=== PATIENT | male | born 1955 | race Caucasian/White ===

== ENCOUNTER 2021-04-01 17:21 | Emergency (ER) | payer MEDICARE ==
[2021-04-01 18:09] VITALS: BP 223/94; PULSE 79; RESP 18; TEMP 98
[2021-04-01] MEDS ORDERED: LIDOCAINE 1% INJ 10MG/ML (20 ML MDV) SQ ONE (19:14)
[2021-04-01] MEDS ORDERED: DIPH,PERTUS(ACELL)TETVAC-LF 0.5 ML VIAL IM ONE (19:41)
--- NOTE | 2021-04-01 19:44 | ED ---
Wound/Laceration HPI - General Chief Complaint: Wound/Laceration Stated Complaint: Finger Laceration Time Seen by Provider: 04/01/21 18:38 Source: patient, RN notes reviewed Mode of arrival: ambulatory Limitations: no limitations - History of Present Illness Initial Comments: 65-year-old male present emergency Department chief complaint of laceration to his right third and fourth. Patient states he was tossing logs and landed on his finger. Patient is unsure when his last tetanus was. Patient has normal drug ALLERGIES no other complaints for range of motion. - Related Data Home Medications Medication Instructions Recorded Confirmed Acetaminophen Tab [Tylenol] 650 mg PO BID PRN 01/28/15 07/31/15 Atorvastatin [Lipitor] 10 mg PO DAILY 02/15/15 07/31/15 Losartan [Cozaar] 25 mg PO QAM 02/15/15 07/31/15 Aspirin [Adult Low Dose Aspirin EC] 81 mg PO DAILY 07/31/15 07/31/15 INSULIN LISPRO (humaLOG) [humaLOG] 0 units SQ TID-W/MEALS 07/31/15 07/31/15 Previous Rx's Medication Instructions Recorded Insulin Glargine [Lantus Vial] 20 unit SQ HS #1 vial 02/01/15 Allergies Allergy/AdvReac Type Severity Reaction Status Date / Time No Known Allergies Allergy Verified 04/01/21 18:10 Review of Systems ROS Statement: Those systems with pertinent positive or pertinent negative responses have been documented in the HPI. ROS Other: All systems not noted in ROS Statement are negative. Past Medical History Past Medical History: Diabetes Mellitus, Hyperlipidemia, Hypertension Additional Past Medical History / Comment(s): POOR CIRCULATION RT LEG. RT ANKLE WOUND History of Any Multi-Drug Resistant Organisms: None Reported Past Surgical History: Adenoidectomy, Orthopedic Surgery, Tonsillectomy Additional Past Surgical History / Comment(s): RECENT WOUND CENTER FOR RT ANKLE WOUND, NOW DISCHARGED, GANGLION CYST REMOVED LT WRIST, MASS REMOVED FROM RT INNER THIGH/GROIN. IVAN CATARACT LENS IMPLANTS. Past Anesthesia/Blood Transfusion Reactions: No Reported Reaction Past Psychological History: No Psychological Hx Reported Smoking Status: Never smoker Past Alcohol Use History: Occasional Past Drug Use History: None Reported - Past Family History Mother Family Medical History: Renal Disease Father Family Medical History: Diabetes Mellitus Additional Family Medical History / Comment(s): AGE 66 General Exam Limitations: no limitations General appearance: alert, in no apparent distress Head exam: Present: atraumatic, normocephalic, normal inspection Eye exam: Present: normal appearance, PERRL, EOMI. Absent: scleral icterus, conjunctival injection, periorbital swelling ENT exam: Present: normal exam, normal oropharynx, mucous membranes moist Respiratory exam: Present: normal lung sounds bilaterally. Absent: respiratory distress, wheezes, rales, rhonchi, stridor Cardiovascular Exam: Present: regular rate, normal rhythm, normal heart sounds. Absent: systolic murmur, diastolic murmur, rubs, gallop, clicks Extremities exam: Present: other (Right hand third digit there is a3 cm laceration along with the fourth digit 1 cm) Course Vital Signs 04/01/21 18:05 Temperature 98.0 F Pulse Rate 79 Respiratory 18 Rate Blood Pressure 223/94 O2 Sat by Pulse 97 Oximetry Procedures - Laceration Laceration #1 Consent Obtained: verbal consent Indication: laceration Site: hand (3rd) Size (cm): 3 Description: irregular Depth: simple, single layer Anesthetic Used: lidocaine 1%, without epi Anesthesia Technique: nerve block Amount (mls): 8 Pre-repair: wound explored, irrigated extensively, deep structures intact Type of Sutures: nylon Size of Sutures: 4-0 Number of Sutures: 6 Technique: simple, interrupted Patient Tolerated Procedure: well, no complications Laceration #2 Consent Obtained: verbal consent Indication: laceration Site: hand (4th) Size (cm): 1 Description: linear Anesthetic Used: lidocaine 1%, without epi Anesthesia Technique: local infiltration Amount (mls): 2 Pre-repair: wound explored, irrigated extensively, deep structures intact Type of Sutures: nylon Size of Sutures: 4-0 Number of Sutures: 1 Patient Tolerated Procedure: well, no complications Medical Decision Making - Medical Decision Making X-ray does not show no acute fracture. Patient has a laceration repaired patient will be discharged in stable condition. Disposition Clinical Impression: Finger laceration Disposition: HOME SELF-CARE Condition: Stable Instructions (If sedation given, give patient instructions): Laceration (ED), Care For Your Stitches (ED) Additional Instructions: Sutures removed in 10 days.Please return to the Emergency Department if symptoms worsen or any other concerns. Is patient prescribed a controlled substance at d/c from ED?: No Referrals: Gonzalez Whitehead DO [Primary Care Provider] - 1-2 days Time of Disposition: 19:44
--- NOTE | 2021-04-01 19:50 | XR ---
RESULT: HISTORY: laceration TECHNIQUE: 3 views of the right fingers were obtained. COMPARISON: None. FINDINGS: There is no acute displaced fracture or dislocation. The visualized joint spaces are preserved. No ra diopaque foreign body. IMPRESSION: No displaced fracture or radiopaque foreign body.
== END 2021-04-01 20:03 | disposition home or self-care (01) ==
LOC: EC 17:21
DX: S61.212A Laceration without foreign body of right middle finger without damage to nail, initial encounter (principal); S61.214A Laceration without foreign body of right ring finger without damage to nail, initial encounter; W22.8XXA Striking against or struck by other objects, initial encounter; E11.9 Type 2 diabetes mellitus without complications; I10 Essential (primary) hypertension; E78.5 Hyperlipidemia, unspecified; Z79.4 Long term (current) use of insulin; Z79.899 Other long term (current) drug therapy; Z83.3 Family history of diabetes mellitus
CPT/HCPCS: 90471; 99283; 73140; 90715; 12002; J2001

== ENCOUNTER 2023-02-25 12:06 | Inpatient (IN) | payer MEDICARE ==
--- NOTE | 2023-02-25 13:00 | ED ---
Skin/Abscess/FB HPI - General Source: patient, RN notes reviewed Mode of arrival: ambulatory Limitations: no limitations <Gonzalez Hendrix - Last Filed: 02/25/23 12:59> - History of Present Illness MD complaint: abscess/boil, other (Diabetic foot ulcer) -: days(s) Location: R foot Severity: moderate Severity scale (1-10): 4 Consistency: constant Improves with: none Worsens with: none Context: none Associated symptoms: denies other symptoms Treatments Prior to Arrival: none <Jose Newby - Last Filed: 02/28/23 18:14> - General Chief complaint: Skin/Abscess/Foreign Body Stated complaint: rt leg wound Time Seen by Provider: 02/25/23 12:59 - History of Present Illness Initial comments: 67-year-old male presents emergency Department chief complaint of wound to his right foot. He states that his been dealing for last 1 month. Patient states she's been trying to other himself states is getting worse. Patient states is painful there is noted to the area. he has known diabetic on insulin. (Gonzalez Hendrix) This is a 67-year-old male the ER today. Patient Dese for evaluation of significant infection) infection with malodorous discharge. Fever. Patient does not feel well and is having this pain in the right foot ankle and leg. Patient states he has having increasing smell and feeling weak (Jose Newby) - Related Data Home Medications Medication Instructions Recorded Confirmed Atorvastatin [Lipitor] 20 mg PO HS 02/25/23 02/25/23 Escitalopram [Lexapro] 20 mg PO DAILY 02/25/23 02/25/23 Insulin NPH Hum/Reg Insulin Hm 40 units SQ BID 02/25/23 02/25/23 [Novolin 70-30 Flexpen] Lisinopril-Hctz 20-25 mg 1 tab PO DAILY 02/25/23 02/25/23 [Zestoretic 20-25] amLODIPine [Norvasc] 5 mg PO DAILY 02/25/23 02/25/23 metFORMIN HCL 500 mg PO BID 02/25/23 02/25/23 traZODone HCL [Desyrel] 50 - 100 mg PO HS 02/25/23 02/25/23 Allergies Allergy/AdvReac Type Severity Reaction Status Date / Time No Known Allergies Allergy Verified 02/25/23 17:47 Review of Systems ROS Other: All systems not noted in ROS Statement are negative. <RachidGonzalez swanson - Last Filed: 02/25/23 12:59> ROS Other: All systems not noted in ROS Statement are negative. <Jose Newby Manuel - Last Filed: 02/28/23 18:14> ROS Statement: Those systems with pertinent positive or pertinent negative responses have been documented in the HPI. Past Medical History Past Medical History: Diabetes Mellitus, Hyperlipidemia, Hypertension Additional Past Medical History / Comment(s): POOR CIRCULATION RT LEG. RT ANKLE WOUND History of Any Multi-Drug Resistant Organisms: None Reported Past Surgical History: Adenoidectomy, Orthopedic Surgery, Tonsillectomy Additional Past Surgical History / Comment(s): RECENT WOUND CENTER FOR RT ANKLE WOUND, NOW DISCHARGED, GANGLION CYST REMOVED LT WRIST, MASS REMOVED FROM RT INNER THIGH/GROIN. IVAN CATARACT LENS IMPLANTS. Past Anesthesia/Blood Transfusion Reactions: No Reported Reaction Past Psychological History: No Psychological Hx Reported Smoking Status: Never smoker Past Alcohol Use History: Occasional Past Drug Use History: None Reported - Past Family History Mother Family Medical History: Renal Disease Father Family Medical History: Diabetes Mellitus Additional Family Medical History / Comment(s): AGE 66 <RumaGonzalez - Last Filed: 02/25/23 12:59> General Exam Limitations: no limitations <RachidGonzalez swanson - Last Filed: 02/25/23 12:59> General appearance: alert, in no apparent distress Head exam: Present: atraumatic, normocephalic, normal inspection Eye exam: Present: normal appearance, PERRL, EOMI. Absent: scleral icterus, conjunctival injection, periorbital swelling ENT exam: Present: normal exam, mucous membranes moist Neck exam: Present: normal inspection. Absent: tenderness, meningismus, lymphadenopathy Respiratory exam: Present: normal lung sounds bilaterally. Absent: respiratory distress, wheezes, rales, rhonchi, stridor Cardiovascular Exam: Present: regular rate, normal rhythm, normal heart sounds. Absent: systolic murmur, diastolic murmur, rubs, gallop, clicks GI/Abdominal exam: Present: soft, normal bowel sounds. Absent: distended, tenderness, guarding, rebound, rigid Extremities exam: Present: normal inspection, full ROM, normal capillary refill, other (Significant swelling right lower extremity with drainage, foot great toe fifth toe as well as heel ulcers, malodorous). Absent: tenderness, pedal edema, joint swelling, calf tenderness Back exam: Present: normal inspection Neurological exam: Present: alert, oriented X3, CN II-XII intact Psychiatric exam: Present: normal affect, normal mood Skin exam: Present: warm, dry, intact, normal color. Absent: rash <Jose Newby - Last Filed: 02/28/23 18:14> - General Exam Comments Initial Comments: Visual Physical Exam Vital signs reviewed General: Well-appearing, nontoxic, no acute distress. Head: Normocephalic, atraumatic Eyes: PERRLA, EOMI ENT: Airway patent Chest: Nonlabored breathing Skin: No visual rash, normal skin tone Neuro: Alert and oriented 3 Musculoskeletal: No gross abnormalities (Gonzalez Hendrix) Patient does have multiple nonhealing ulcers right lower extremity significant ulcer to right heel as well as right foot pad of his great toe, greater digit (Jose Newby) Course <Jose Newby - Last Filed: 02/28/23 18:14> Vital Signs 02/25/23 02/25/23 02/25/23 12:24 16:48 18:00 Temperature 99.9 F H Pulse Rate 91 99 87 Respiratory 20 18 18 Rate Blood Pressure 182/83 175/80 162/72 O2 Sat by Pulse 98 99 100 Oximetry 02/25/23 02/25/23 18:53 21:00 Temperature 99.4 F 98.2 F Pulse Rate 71 Respiratory 18 Rate Blood Pressure 131/84 O2 Sat by Pulse 94 L Oximetry - Reevaluation(s) Reevaluation #1: 02/25/23 17:42 Medical records reviewed (Jose Newby) Reevaluation #2: 02/25/23 17:42 Patient symptoms are improved (Jose Newby) Reevaluation #3: 02/25/23 17:42 Patient informed results questions answered (Jose Newby) Reevaluation #4: 02/25/23 17:42 Was pt. sent in by a medical professional or institution (, PA, MARKETING PROJECT MANAGER, urgent care, hospital, or usp...) When possible be specific @ -no Did you speak to anyone other than the patient for history (EMS, parent, family, police, friend...)? What history was obtained from this source @ -no Did you review nursing and triage notes (agree or disagree)? Why? @ -agree Are old charts reviewed (outside hosp., previous admission, EMS record, old EKG, old radiological studies, urgent care reports/EKG's, usp records)? Report findings @ -yes Differential Diagnosis (chest pain, altered mental status, abdominal pain women, abdominal pain men, vaginal bleeding, weakness, fever, dyspnea, syncope, headache, dizziness, GI bleed, back pain, seizure, CVA, palpatations, mental health, musculoskeletal)? @ -prior EKG interpreted by me (3pts min.). @ -no X-rays interpreted by me (1pt min.). @ -yes CT interpreted by me (1pt min.). @ -no U/S interpreted by me (1pt. min.). @ -no What testing was considered but not performed or refused? (CT, X-rays, U/S, labs)? Why? @ -none What meds were considered but not given or refused? Why? @ -none Did you discuss the management of the patient with other professionals (professionals i.e. , PA, MARKETING PROJECT MANAGER, lab, RT, psych nurse, social director, post anesthesia nurse, teacher, president and chief executive officer, case specialist)? Give summary @ -no Was smoking cessation discussed for >3mins.? @ -no Was critical care preformed (if so, how long)? @ -no Were there social determinants of health that impacted care today? How? (Homelessness, low income, unemployed, alcoholism, drug addiction, transportation, low edu. Level, literacy, decrease access to med. care, long-term, rehab)? @ -none Was there de-escalation of care discussed even if they declined (Discuss DNR or withdrawal of care, Hospice)? DNR status @ -no What co-morbidities impacted this encounter? (DM, HTN, Smoking, COPD, CAD, Cancer, CVA, ARF, Chemo, Hep., AIDS, mental health diagnosis, sleep apnea, morbid obesity)? @ -none Was patient admitted / discharged? Hospital course, mention meds given and route, prescriptions, significant lab abnormalities, going to OR and other pertinent info. @ - 67 male with underlying diabetes significant coming in for evaluation of lower extremity wounds, unhealing ulcer right lower extremity right heel right foot. Patient will be admitted for IV antibiotics rule out osteomyelitis and supportive care Admitted Undiagnosed new problem with uncertain prognosis? @ -no Drug Therapy requiring intensive monitoring for toxicity (Heparin, Nitro, Insulin, Cardizem)? @ -no Were any procedures done? @ -no Diagnosis/symptom? @ -Diabetic ulcers, cellulitis Acute, or Chronic, or Acute on Chronic? @ -Acute Uncomplicated (without systemic symptoms) or Complicated (systemic symptoms)? @ -Complicated Side effects of treatment? @ -no Exacerbation, Progression, or Severe Exacerbation? @ -exacerbation Poses a threat to life or bodily function? How? (Chest pain, [place], [place], pneumonia, PE, COPD, DKA, ARF, appy, cholecystitis, CVA, Diverticulitis, Homicidal, Suicidal, threat to staff... and all critical care pts) @ -yes threat to limb was sepsis, osteoarthritis (Jose Newby) - Consultations Consultation #1: Spoke with sound who agrees to admit this patient (Jose Newby) Medical Decision Making <Gonzalez Hendrix - Last Filed: 02/25/23 12:59> - Lab Data Result diagrams: 02/28/23 06:33 02/28/23 06:33 - Radiology Data Radiology results: report reviewed (X-ray foot is negative for air, negative for acute disease), image reviewed <Jose Newby - Last Filed: 02/28/23 18:14> - Medical Decision Making I performed a quick note portion of this chart signed Gonzalez Hendrix PA-C (Gonzalez Hendrix) 67 male with underlying diabetes significant coming in for evaluation of lower extremity wounds, unhealing ulcer right lower extremity right heel right foot. Patient will be admitted for IV antibiotics rule out osteomyelitis and supportive care (Jose Newby) - Lab Data Lab Results 02/25/23 02/25/23 02/25/23 Range/Units 13:57 13:57 13:57 WBC 16.5 H (3.8-10.6) k/uL RBC 4.25 L (4.30-5.90) m/uL Hgb 13.0 (13.0-17.5) gm/dL Hct 38.9 L (39.0-53.0) % MCV 91.5 (80.0-100.0) fL MCH 30.6 (25.0-35.0) pg MCHC 33.5 (31.0-37.0) g/dL RDW 14.1 (11.5-15.5) % Plt Count 158 (150-450) k/uL MPV 9.6 Neutrophils % 82 % Lymphocytes % 8 % Monocytes % 8 % Eosinophils % 0 % Basophils % 0 % Neutrophils # 13.5 H (1.3-7.7) k/uL Lymphocytes # 1.3 (1.0-4.8) k/uL Monocytes # 1.4 H (0-1.0) k/uL Eosinophils # 0.1 (0-0.7) k/uL Basophils # 0.0 (0-0.2) k/uL Sodium 132 L (137-145) mmol/L Potassium 4.1 (3.5-5.1) mmol/L Chloride 96 L (98-107) mmol/L Carbon Dioxide 26 (22-30) mmol/L Anion Gap 10 mmol/L BUN 17 (9-20) mg/dL Creatinine 0.92 (0.66-1.25) mg/dL Est GFR (CKD-EPI)AfAm >90 (>60 ml/min/1.73 sqM) Est GFR (CKD-EPI)NonAf 87 (>60 ml/min/1.73 sqM) Glucose 242 H (74-99) mg/dL Plasma Lactic Acid Francisco 1.5 (0.7-2.0) mmol/L Calcium 8.6 (8.4-10.2) mg/dL Total Bilirubin 0.5 (0.2-1.3) mg/dL AST 51 (17-59) U/L ALT 31 (4-49) U/L Alkaline Phosphatase 108 (38-126) U/L C-Reactive Protein 21.8 H (<1.0) mg/dL Total Protein 7.3 (6.3-8.2) g/dL Albumin 3.4 L (3.5-5.0) g/dL Disposition <Gonzalez Hendrix - Last Filed: 02/25/23 12:59> Is patient prescribed a controlled substance at d/c from ED?: No Time of Disposition: 17:40 <Jose Newby - Last Filed: 02/28/23 18:14> Clinical Impression: Infected wound, Diabetic ulcer of lower extremity, Right foot ulcer, Fever Narrative: r/o Osteomyelitis (Jose Newby) Disposition: ADMITTED IP TO THIS HOSP Condition: Fair
--- NOTE | 2023-02-25 13:05 | XR ---
EXAMINATION TYPE: XR foot complete RT DATE OF EXAM: 02/25/2023 1:00 PM INDICATION: Patient age:Male; 67 years old; Reason for study: wound pain; PHH. COMPARISON: None TECHNIQUE: The right foot was examined in the AP, oblique, and lateral projections. FINDINGS: Mild multifocal degeneration changes with osteophyte formation and joint space narrowing worse at the first digit interphalangeal joint. No evidence of any acute osseous pathology. There are soft tissue s when throughout the foot. Joints are preserved. Calcaneal plantar spurring is present. Calcaneal Ac hilles enthesophyte formation. Skin calcifications noted and the distal leg. No osseous erosion visua lized. IMPRESSION: * No evidence of acute fracture. * Mild soft tissue swelling throughout the foot. No evidence for osseous erosion. * Mild multilevel disc degeneration changes.
[2023-02-25 14:12] LABS: Basophils % (A) 0 %; Eosinophils # (A) 0.1 k/uL (0-0.7); Eosinophils % (A) 0 %; HCT 38.9 % (39.0-53.0); Lymphocytes # (A) 1.3 k/uL (1.0-4.8); Lymphocytes % (A) 8 %; MCH 30.6 pg (25.0-35.0); MCHC 33.5 g/dL (31.0-37.0); MCV 91.5 fL (80.0-100.0); Mean Platelet Volume 9.6; Monocytes # (A) 1.4 k/uL (0-1.0); Monocytes % (A) 8 %; Neutrophils # (A) 13.5 k/uL (1.3-7.7); Neutrophils % (A) 82 %; Platelet Count 158 k/uL (150-450); RBC 4.25 m/uL (4.30-5.90); RDW 14.1 % (11.5-15.5); WBC 16.5 k/uL (3.8-10.6)
[2023-02-25 14:34] LABS: ALT 31 U/L (4-49); AST 51 U/L (17-59); African American GFR (CKD) >90 (>60 ml/min/1.73 sqM); Albumin 3.4 g/dL (3.5-5.0); Alkaline Phosphatase 108 U/L (38-126); Anion Gap 10 mmol/L; Blood Urea Nitrogen 17 mg/dL (9-20); Calcium 8.6 mg/dL (8.4-10.2); Carbon Dioxide 26 mmol/L (22-30); Chloride 96 mmol/L (98-107); Glucose 242 mg/dL (74-99); Non-African American GFR(CKD) 87 (>60 ml/min/1.73 sqM); Potassium 4.1 mmol/L (3.5-5.1); Sodium 132 mmol/L (137-145); Total Bilirubin 0.5 mg/dL (0.2-1.3); Total Protein 7.3 g/dL (6.3-8.2)
[2023-02-25 14:46] LABS: C Reactive Protein 21.8 mg/dL (<1.0)
[2023-02-25] MEDS ORDERED: SODIUM CHLORIDE 0.9% 500 ML 500 ML IV ONE (17:14)
[2023-02-25] MEDS ORDERED: VANCOMYCIN IV PER PHARMACY 1 EACH MISC MISCELLANE PRN (17:14)
[2023-02-25] MEDS ORDERED: ACETAMINOPHEN TAB 500 MG TAB PO STA (17:17)
[2023-02-25] MEDS ORDERED: IBUPROFEN 800 MG TAB PO STA (17:17)
[2023-02-25] MEDS ORDERED: ONDANSETRON 4 MG/2 ML VIAL IVP PRN (17:37)
[2023-02-25] MEDS ORDERED: NALOXONE 0.4 MG/ML 1 ML VIAL IV PRN (17:37)
[2023-02-25] MEDS ORDERED: MORPHINE SULFATE 4 MG/ML SYRINGE IV PRN (17:37)
[2023-02-25] MEDS: SODIUM CHLORIDE 0.9% 1,000 ML IV SCH ×2 (17:49→23:47)
[2023-02-25] MEDS ORDERED: VANCOMYCIN 2,500 MG in SODIUM CHLORIDE 0.9% 500 ML 500 ML IVPB ONE (18:00)
--- NOTE | 2023-02-25 20:16 | US ---
EXAMINATION TYPE: US venous doppler duplex LE RT DATE OF EXAM: 02/25/2023 7:47 PM COMPARISON: NONE CLINICAL INDICATION: Male, 67 years old with history of roberto; Right calf swelling and redness. Diabet ic with wounds SIDE PERFORMED: Right TECHNIQUE: The lower extremity deep venous system is examined utilizing real time linear array sonog liam with graded compression, doppler sonography and color-flow sonography. VESSELS IMAGED: Common Femoral Vein Deep Femoral Vein Greater Saphenous Vein * Femoral Vein Popliteal Vein Small Saphenous Vein * Proximal Calf Veins (* superficial vessels) Right Leg: Negative for DVT. Multiple large lymph nodes visualized in groin and one in the knee IMPRESSION: Grayscale, color doppler, spectral doppler imaging performed of the deep veins of the lo wer extremities. There is normal flow, compressibility, vascular waveforms. Multiple enlarged lymph nodes right groin.
--- NOTE | 2023-02-25 21:20 | P.HPIM ---
History of Present Illness H&P Date: 02/25/23 The patient is a 67-year-old male with a PMH of insulin-dependent diabetes mellitus completed by peripheral neuropathy with history of right lower extremity osteomyelitis, hypertension, and hyperlipidemia who presents to the emergency room with complaints of right lower extremity ulcers, fever, and fatigue. The patient reports that over the past 2 months, he has been noticed the worsening right heel ulcer. He has been trying to take care of it at home with dressings without significant improvement. Since Wednesday, the patient has been developing gradually worsening diaphoresis with fever with temperature 102.6F measured at home earlier today as well as fatigue and lightheadedness. Reports diffuse right foot pain rated at a 5 out of 10. Denies chest pain or shortness of breath. Denies headaches, abdominal pain, nausea, vomiting. Right foot x-ray in the emergency room showed mild soft tissue swelling throughout the foot without osseous abnormalities. Venous Doppler of right lower extremity was negative for DVT with multiple large lymph nodes visualized in the groin and one in the knee. Laboratory evaluation was remarkable for leukocytosis of 16.5 with sodium 132 chloride 96, lactic acid 1.5, and glucose 242. Of note, the patient previously had an episode of osteomyelitis in 2014 of right ankle requiring prolonged course of antibiotics with subsequent resolution. ED documentation reviewed and case discussed with ED provider. Review of systems: Pertinent positives and negatives as discussed in HPI, a complete review of systems was performed and all other systems are negative. Physical examination: Vital signs reviewed General: non toxic, no distress, appears at stated age, obese Derm: R foot multiple ulcers including plantar surface first metatarsal 4-5 cm non-stageble, lateral aspect of ankle 2 cm purulent base ulcer, 2 large starge 3 somewhat purulent and erythematous ulcers on medial aspect of leg Eyes: EOMI, no lid lag, anicteric sclera, pupils equal round reactive to light ENT: Nose and ears atraumatic Neck: No cervical lymphadenopathy, trachea midline, supple Mouth: no lip lesion, mucus membranes moist Cardiovascular: S1S2 reg, no murmur, positive dorsalis pedis pulse bilateral, no edema Lungs: CTA bilateral, no rhonchi, no rales, no accessory muscle use Abdominal: soft, nontender to palpation, no guarding Ext: muscle strength 5 out of 5 in all 4 extremities grossly, no gross muscle atrophy, no contractures, chronic venous stasis changes ivan LEs with R>L noted with RLE erythematous Neuro: CN II-XI grossly intact, no gross focal neuro deficits Psych: Alert, oriented, appropriate affect Assessment: # Right lower extremity multiple diabetic ulcers with cellulitis, rule out osteomyelitis # Hyponatremia # Chronic conditions: Type II DM, hypertension, hyperlipidemia Imaging: Right foot x-ray in the emergency room showed mild soft tissue swelling throughout the foot without osseous abnormalities. Venous Doppler of right lower extremity was negative for DVT with multiple large lymph nodes visualized in the groin and one in the knee. Data Review: Laboratory evaluation was remarkable for leukocytosis of 16.5 with sodium 132 chloride 96, lactic acid 1.5, and glucose 242. Plan: Continue with broad-spectrum antibiotic coverage with ceftriaxone and vancomycin IV Obtain right foot MRI to rule out osteomyelitis Infectious disease consult Pain control with morphine 4 mg IVP q4h prn Continue with IV fluids with normal saline 130 mLs per hour Continue with the following home medications: -Trazodone 50 mg by mouth daily at bedtime -Lexapro 20 mg by mouth daily -Lipitor 20 mg by mouth daily at bedtime -Hold the patient's antihypertensives at this time The patient takes Novolin 70/30 40 units twice a day at home Start patient on Levemir 30 units daily at bedtime with sliding scale for now DVT prophylaxis: Lovenox The patient is admitted with an anticipated greater than 2 midnight stay for evaluation of RLE cellulitis CODE STATUS: Full Code Discussed with: Patient Anticipated discharge place: Home Past Medical History Past Medical History: Diabetes Mellitus, Hyperlipidemia, Hypertension Additional Past Medical History / Comment(s): POOR CIRCULATION RT LEG. RT ANKLE WOUND History of Any Multi-Drug Resistant Organisms: None Reported Past Surgical History: Adenoidectomy, Orthopedic Surgery, Tonsillectomy Additional Past Surgical History / Comment(s): RECENT WOUND CENTER FOR RT ANKLE WOUND, NOW DISCHARGED, GANGLION CYST REMOVED LT WRIST, MASS REMOVED FROM RT INNER THIGH/GROIN. IVAN CATARACT LENS IMPLANTS. Past Anesthesia/Blood Transfusion Reactions: No Reported Reaction Past Psychological History: No Psychological Hx Reported Smoking Status: Never smoker Past Alcohol Use History: Occasional Past Drug Use History: None Reported - Past Family History Mother Family Medical History: Renal Disease Father Family Medical History: Diabetes Mellitus Additional Family Medical History / Comment(s): AGE 66 Medications and Allergies Home Medications Medication Instructions Recorded Confirmed Type Atorvastatin [Lipitor] 20 mg PO HS 02/25/23 02/25/23 History Escitalopram [Lexapro] 20 mg PO DAILY 02/25/23 02/25/23 History Insulin NPH Hum/Reg Insulin Hm 40 units SQ BID 02/25/23 02/25/23 History [Novolin 70-30 Flexpen] Lisinopril-Hctz 20-25 mg 1 tab PO DAILY 02/25/23 02/25/23 History [Zestoretic 20-25] amLODIPine [Norvasc] 5 mg PO DAILY 02/25/23 02/25/23 History metFORMIN HCL 500 mg PO BID 02/25/23 02/25/23 History traZODone HCL [Desyrel] 50 - 100 mg PO HS 02/25/23 02/25/23 History Allergies Allergy/AdvReac Type Severity Reaction Status Date / Time No Known Allergies Allergy Verified 02/25/23 17:47 Physical Exam Vitals: Vital Signs Temp Pulse Resp BP Pulse Ox 02/25/23 18:53 99.4 F 02/25/23 18:00 87 18 162/72 100 02/25/23 16:48 99 18 175/80 99 02/25/23 12:24 99.9 F H 91 20 182/83 98 Intake and Output 02/25/23 02/25/23 02/25/23 06:59 14:59 22:59 Other: Weight 131.088 kg Results CBC & Chem 7: 02/25/23 13:57 02/25/23 13:57 Labs: Abnormal Lab Results - Last 24 Hours (Table) 02/25/23 02/25/23 Range/Units 13:57 13:57 WBC 16.5 H (3.8-10.6) k/uL RBC 4.25 L (4.30-5.90) m/uL Hct 38.9 L (39.0-53.0) % Neutrophils # 13.5 H (1.3-7.7) k/uL Monocytes # 1.4 H (0-1.0) k/uL Sodium 132 L (137-145) mmol/L Chloride 96 L (98-107) mmol/L Glucose 242 H (74-99) mg/dL C-Reactive Protein 21.8 H (<1.0) mg/dL Albumin 3.4 L (3.5-5.0) g/dL
[2023-02-25 21:42] LABS: Glucose,Whole Blood 142 mg/dL (70-110)
[2023-02-25] MEDS: INSULIN DETEMIR (LEVEMIR) 100 UNIT/ML SYR SQ SCH (22:28)
[2023-02-25] MEDS: traZODone HCL 50 MG TAB PO SCH (22:28)
[2023-02-26] MEDS ORDERED: VANCOMYCIN 2,250 MG in SODIUM CHLORIDE 0.9% 500 ML 500 ML IVPB SCH (06:00)
[2023-02-26] MEDS: INSULIN ASPART (NovoLOG) 100 UNIT/ML VIAL SQ SCH ×4 (06:07→21:09)
[2023-02-26 06:08] LABS: Glucose,Whole Blood 102 mg/dL (70-110)
[2023-02-26 07:48] LABS: ALT 27 U/L (4-49); AST 33 U/L (17-59); African American GFR (CKD) 61 (>60 ml/min/1.73 sqM); Albumin 2.7 g/dL (3.5-5.0); Albumin/Globulin Ratio 0.8; Alkaline Phosphatase 83 U/L (38-126); Anion Gap 5 mmol/L; Blood Urea Nitrogen 22 mg/dL (9-20); Calcium 8.2 mg/dL (8.4-10.2); Carbon Dioxide 30 mmol/L (22-30); Chloride 102 mmol/L (98-107); Globulin 3.2 g/dL; Glucose 102 mg/dL (74-99); Non-African American GFR(CKD) 53 (>60 ml/min/1.73 sqM); Potassium 4.7 mmol/L (3.5-5.1); Sodium 137 mmol/L (137-145); Total Bilirubin 0.6 mg/dL (0.2-1.3); Total Protein 5.9 g/dL (6.3-8.2)
[2023-02-26] MEDS: ENOXAPARIN 40 MG/0.4 ML SYRINGE SQ SCH (08:02)
[2023-02-26] MEDS: ESCITALOPRAM 20 MG TAB PO SCH (08:02)
[2023-02-26] MEDS: SODIUM CHLORIDE 0.9% 1,000 ML IV SCH ×3 (08:09→23:31)
[2023-02-26 11:05] LABS: HCT 37.5 % (39.6-50.0); HGB 11.6 d/dL (13.0-17.0); MCHC 30.9 d/dL (32.0-37.0); MCV 93.8 FL (80.0-97.0); Mean Platelet Volume 12.5 FL (9.5-12.2); NRBC Per 100 WBC 0 X 10*3/uL (0.00-0.01); Platelet Count 151 X 10*3/uL (140-440); RDW 14.6 % (11.5-14.5); WBC 17.36 X 10*3/uL (4.50-10.00)
[2023-02-26 11:17] LABS: Glucose,Whole Blood 178 mg/dL (70-110)
[2023-02-26 11:28] LABS: Phosphorus 4.8 mg/dL (2.5-4.5)
[2023-02-26] MEDS: AMPICILLIN-SULBACTAM 3 GM in SODIUM CHLORIDE 0.9% 100 ML IVPB SCH ×3 (13:30→23:31)
[2023-02-26] MEDS: ACETAMINOPHEN TAB 325 MG TAB PO PRN ×2 (13:30→20:00)
[2023-02-26 14:08] LABS: Basophils % (A) 0.3 %; Eosinophils % (A) 0.7 %; Lymphocytes % (A) 8.7 %; Neutrophils % (A) 78.7 %
[2023-02-26 16:24] LABS: Glucose,Whole Blood 180 mg/dL (70-110)
--- NOTE | 2023-02-26 17:00 | P.PN ---
Subjective Progress Note Date: 02/26/23 The patient is a 67-year-old male with a PMH of insulin-dependent diabetes mellitus completed by peripheral neuropathy with history of right lower extremity osteomyelitis, hypertension, and hyperlipidemia who presents to the emergency room with complaints of right lower extremity ulcers, fever, and fatigue. Right foot x-ray in the emergency room showed mild soft tissue swelling throughout the foot without osseous abnormalities. Venous Doppler of right lower extremity was negative for DVT with multiple large lymph nodes visualized in the groin and one in the knee. Right foot x-ray in the emergency room showed mild soft tissue swelling throughout the foot without osseous abnormalities. Laboratory evaluation was remarkable for leukocytosis of 16.5 with sodium 132 chloride 96, lactic acid 1.5, and glucose 242. 02/26 Patient was seen and examined. No acute events overnight. Patient reports intermittent shaking and fevers which has improved since admission. Right foot pain well controlled. He has no other complaints. CBC shows WBC count of 17.36, hemoglobin 11.6. CMP shows BUN 22, creatinine 1.38, glucose 102, calcium 8.2, albumin 2.7. Phosphorus 4.8. General: non toxic, no distress, appears at stated age, obese Derm: R foot multiple ulcers including plantar surface first metatarsal 4-5 cm non-stageble, lateral aspect of ankle 2 cm purulent base ulcer, 2 large starge 3 somewhat purulent and erythematous ulcers on medial aspect of leg Eyes: EOMI, no lid lag, anicteric sclera ENT: Nose and ears atraumatic Neck: No cervical lymphadenopathy, trachea midline, supple Cardiovascular: S1S2 reg, no murmur, positive dorsalis pedis pulse bilateral, no edema Lungs: CTA bilateral, no rhonchi, no rales, no accessory muscle use Ext: muscle strength 5 out of 5 in all 4 extremities grossly, no gross muscle atrophy, no contractures, chronic venous stasis changes toni LEs with R>L noted with RLE erythematous Neuro: no gross focal neuro deficits Psych: Alert, oriented, appropriate affect Assessment: # Right lower extremity multiple diabetic ulcers with cellulitis, rule out osteomyelitis # Sepsis likely related to above # Acute kidney injury # Chronic conditions: Type II DM, hypertension, hyperlipidemia Based on my assessment of this patient, this patient meets a high complexity lev el of care. Patient has an acute diagnosis of sepsis related to RLE cellulitis r/o OM that poses a threat to life or bodily function. # Right lower extremity multiple diabetic ulcers with cellulitis, rule out osteomyelitis: MRI foot pending. Tylenol PRN for fever. Continue Unasyn 3 g IV Q6H. Continue NS at 130 cc/hr. Telemetry monitoring. Blood culture pending. ID is consulted. # Sepsis likely related to above # Acute kidney injury: IV hydration as above. I have reviewed the following consultant education notes: I have reviewed the results of the following tests: CBC, CMP. I have ordered the following tests: CBC and BMP. I have discussed the care of this patient with the following independent vt storian: I have independently interpreted the following test below: I have discussed the management of this patient with the following physician: Objective - Vital Signs Vital signs: Vital Signs Temp 98.3 F 02/26/23 14:00 Pulse 68 02/26/23 14:00 Resp 17 02/26/23 14:00 BP 185/78 02/26/23 14:00 Pulse Ox 98 02/26/23 14:00 FiO2 Intake & Output 02/25/23 02/26/23 02/26/23 18:59 06:59 18:59 Weight 131.088 kg Other: Voiding Method Toilet # Voids 2 - Labs CBC & Chem 7: 02/26/23 07:02 02/26/23 07:02 Labs: Abnormal Lab Results - Last 24 Hours (Table) 02/25/23 02/26/23 02/26/23 Range/Units 21:40 07:02 07:02 WBC 17.36 H (4.50-10.00) X 10*3/uL RBC 4.00 L (4.40-5.60) X 10*6/uL Hgb 11.6 L (13.0-17.0) d/dL Hct 37.5 L (39.6-50.0) % MCHC 30.9 L (32.0-37.0) d/dL RDW 14.6 H (11.5-14.5) % MPV 12.5 H (9.5-12.2) FL BUN 22 H (9-20) mg/dL Creatinine 1.38 H (0.66-1.25) mg/dL Glucose 102 H (74-99) mg/dL POC Glucose (mg/dL) 142 H (70-110) mg/dL Calcium 8.2 L (8.4-10.2) mg/dL Phosphorus 4.8 H (2.5-4.5) mg/dL Total Protein 5.9 L (6.3-8.2) g/dL Albumin 2.7 L (3.5-5.0) g/dL 02/26/23 02/26/23 Range/Units 11:15 16:23 WBC (4.50-10.00) X 10*3/uL RBC (4.40-5.60) X 10*6/uL Hgb (13.0-17.0) d/dL Hct (39.6-50.0) % MCHC (32.0-37.0) d/dL RDW (11.5-14.5) % MPV (9.5-12.2) FL BUN (9-20) mg/dL Creatinine (0.66-1.25) mg/dL Glucose (74-99) mg/dL POC Glucose (mg/dL) 178 H 180 H (70-110) mg/dL Calcium (8.4-10.2) mg/dL Phosphorus (2.5-4.5) mg/dL Total Protein (6.3-8.2) g/dL Albumin (3.5-5.0) g/dL
[2023-02-26] MEDS: traZODone HCL 50 MG TAB PO SCH (20:00)
[2023-02-26] MEDS: ATORVASTATIN 20 MG TAB PO SCH (20:00)
[2023-02-26 21:05] LABS: Glucose,Whole Blood 156 mg/dL (70-110)
[2023-02-26] MEDS: INSULIN DETEMIR (LEVEMIR) 100 UNIT/ML SYR SQ SCH (21:12)
[2023-02-26] MEDS ORDERED: VANCOMYCIN 2,000 MG in SODIUM CHLORIDE 0.9% 500 ML 500 ML IVPB SCH (22:00)
--- NOTE | 2023-02-26 22:21 | P.CONS ---
History of Present Illness - Reason for Consult Consult date: 02/26/23 - History of Present Illness Patient is a 67-year-old male with a past medical history significant for insulin-dependent Beatties mellitus neuropathy hypertension hyperlipidemia presenting to the hospital with a right total lower extremity swelling redness along with fever and chills and fatigue patient's symptom has been going on for 3 to 4 days before presentation to hospital patient have a dry scaly skin and superficial ulceration to the right foot area patient do have underlying neuropathy denies significant pain however did have associated swelling or redness and no foul-smelling drainage with the symptoms the patient was evaluated on presentation to the hospital but did have a fever of 99.9 F patie nt was not tachycardic hypertensive or hypoxic did have what was 16.5 slightly up to 17,000 today BUN/creatinine is mildly elevated liver is abnormal CRP was elevated blood cultures obtained currently pending patient did have x-ray of the foot that was negative for any acute fracture mild soft tissue swelling throughout venous Doppler was negative for DVT multiple large lymph nodes visualized in the groin and one in the knee patient is currently being treated with the ceftriaxone and vancomycin infectious was consulted for further management of antibiotic therapy Past Medical History Past Medical History: Diabetes Mellitus, Hyperlipidemia, Hypertension Additional Past Medical History / Comment(s): POOR CIRCULATION RT LEG. RT ANKLE WOUND History of Any Multi-Drug Resistant Organisms: None Reported Past Surgical History: Adenoidectomy, Orthopedic Surgery, Tonsillectomy Additional Past Surgical History / Comment(s): RECENT WOUND CENTER FOR RT ANKLE WOUND, NOW DISCHARGED, GANGLION CYST REMOVED LT WRIST, MASS REMOVED FROM RT INNER THIGH/GROIN. IVAN CATARACT LENS IMPLANTS. Past Anesthesia/Blood Transfusion Reactions: No Reported Reaction Past Psychological History: No Psychological Hx Reported Smoking Status: Never smoker Past Alcohol Use History: Occasional Past Drug Use History: None Reported - Past Family History Mother Family Medical History: Renal Disease Father Family Medical History: Diabetes Mellitus Additional Family Medical History / Comment(s): AGE 66 Medications and Allergies Home Medications Medication Instructions Recorded Confirmed Type Atorvastatin [Lipitor] 20 mg PO HS 02/25/23 02/25/23 History Escitalopram [Lexapro] 20 mg PO DAILY 02/25/23 02/25/23 History Insulin NPH Hum/Reg Insulin Hm 40 units SQ BID 02/25/23 02/25/23 History [Novolin 70-30 Flexpen] Lisinopril-Hctz 20-25 mg 1 tab PO DAILY 02/25/23 02/25/23 History [Zestoretic 20-25] amLODIPine [Norvasc] 5 mg PO DAILY 02/25/23 02/25/23 History metFORMIN HCL 500 mg PO BID 02/25/23 02/25/23 History traZODone HCL [Desyrel] 50 - 100 mg PO HS 02/25/23 02/25/23 History Allergies Allergy/AdvReac Type Severity Reaction Status Date / Time No Known Allergies Allergy Verified 02/25/23 17:47 Physical Exam Vitals: Vital Signs Temp Pulse Pulse Resp BP BP Pulse Ox 02/26/23 10:03 16 02/26/23 07:11 98.2 F 62 16 110/65 97 02/26/23 00:45 97.6 F 61 19 118/75 95 02/25/23 21:29 98.1 F 64 19 107/64 97 02/25/23 21:00 98.2 F 71 18 131/84 94 L 02/25/23 18:53 99.4 F 02/25/23 18:00 87 18 162/72 100 02/25/23 16:48 99 18 175/80 99 Intake and Output 02/25/23 02/26/23 02/26/23 22:59 06:59 14:59 Other: Voiding Method Toilet # Voids 2 Weight 131.088 kg Results CBC & Chem 7: 02/26/23 07:02 02/26/23 07:02 Labs: Abnormal Lab Results - Last 24 Hours (Table) 02/25/23 02/25/23 02/25/23 Range/Units 13:57 13:57 21:40 WBC 16.5 H (3.8-10.6) k/uL RBC 4.25 L (4.30-5.90) m/uL Hgb (13.0-17.0) d/dL Hct 38.9 L (39.0-53.0) % MCHC (32.0-37.0) d/dL RDW (11.5-14.5) % MPV (9.5-12.2) FL Neutrophils # 13.5 H (1.3-7.7) k/uL Monocytes # 1.4 H (0-1.0) k/uL Sodium 132 L (137-145) mmol/L Chloride 96 L (98-107) mmol/L BUN (9-20) mg/dL Creatinine (0.66-1.25) mg/dL Glucose 242 H (74-99) mg/dL POC Glucose (mg/dL) 142 H (70-110) mg/dL Calcium (8.4-10.2) mg/dL Phosphorus (2.5-4.5) mg/dL C-Reactive Protein 21.8 H (<1.0) mg/dL Total Protein (6.3-8.2) g/dL Albumin 3.4 L (3.5-5.0) g/dL 02/26/23 02/26/23 02/26/23 Range/Units 07:02 07:02 11:15 WBC 17.36 H (3.8-10.6) k/uL RBC 4.00 L (4.30-5.90) m/uL Hgb 11.6 L (13.0-17.0) d/dL Hct 37.5 L (39.0-53.0) % MCHC 30.9 L (32.0-37.0) d/dL RDW 14.6 H (11.5-14.5) % MPV 12.5 H (9.5-12.2) FL Neutrophils # (1.3-7.7) k/uL Monocytes # (0-1.0) k/uL Sodium (137-145) mmol/L Chloride (98-107) mmol/L BUN 22 H (9-20) mg/dL Creatinine 1.38 H (0.66-1.25) mg/dL Glucose 102 H (74-99) mg/dL POC Glucose (mg/dL) 178 H (70-110) mg/dL Calcium 8.2 L (8.4-10.2) mg/dL Phosphorus 4.8 H (2.5-4.5) mg/dL C-Reactive Protein (<1.0) mg/dL Total Protein 5.9 L (6.3-8.2) g/dL Albumin 2.7 L (3.5-5.0) g/dL Assessment and Plan Plan: 1patient was in the hospital with sepsis in this patient with a fever elevated white count source right lower extremity cellulitis in this patient did have some superficial ulcerations but no purulent drainage was noticed with rapid progression of cellulitis possible streptococcal disease 2-patient did have mild insufficiency high risk of nephrotoxicity from vancomycin 3-discontinue vancomycin and Rocephin 4-marked area of the redness 5-local wound care with Aquacel dressing and mild Jluis wrap for compression 6-we will start patient on Unasyn 3 g every 6 hours We will follow on clinical condition and cultures to further adjust medication if needed Thank you for this consultation we will follow the patient along with you Dictation was produced using [employer] dictation software. please excuse any g rammatical, word or spelling errors. Time with Patient: Greater than 30
[2023-02-27 05:28] LABS: African American GFR (CKD) 68 (>60 ml/min/1.73 sqM); Non-African American GFR(CKD) 59 (>60 ml/min/1.73 sqM)
[2023-02-27 05:58] LABS: Glucose,Whole Blood 99 mg/dL (70-110)
[2023-02-27] MEDS: INSULIN ASPART (NovoLOG) 100 UNIT/ML VIAL SQ SCH ×4 (06:00→20:52)
[2023-02-27] MEDS: AMPICILLIN-SULBACTAM 3 GM in SODIUM CHLORIDE 0.9% 100 ML IVPB SCH ×4 (06:10→23:41)
[2023-02-27] MEDS: SODIUM CHLORIDE 0.9% 1,000 ML IV SCH (07:56)
[2023-02-27] MEDS: ESCITALOPRAM 20 MG TAB PO SCH (07:58)
[2023-02-27] MEDS: ENOXAPARIN 40 MG/0.4 ML SYRINGE SQ SCH (07:58)
[2023-02-27] MEDS: ACETAMINOPHEN TAB 325 MG TAB PO PRN ×2 (08:04→19:58)
[2023-02-27] MEDS ORDERED: VANCOMYCIN IV PER PHARMACY 1 EACH MISC MISCELLANE PRN (09:32)
[2023-02-27] MEDS ORDERED: VANCOMYCIN 2,000 MG in SODIUM CHLORIDE 0.9% 500 ML 500 ML IVPB SCH (10:00)
[2023-02-27 11:10] LABS: Glucose,Whole Blood 171 mg/dL (70-110)
--- NOTE | 2023-02-27 14:05 | P.PN ---
Subjective Progress Note Date: 02/27/23 The patient is a 67-year-old male with a PMH of insulin-dependent diabetes mellitus completed by peripheral neuropathy with history of right lower extremity osteomyelitis, hypertension, and hyperlipidemia who presents to the emergency room with complaints of right lower extremity ulcers, fever, and fatigue. Right foot x-ray in the emergency room showed mild soft tissue swelling throughout the foot without osseous abnormalities. Venous Doppler of right lower extremity was negative for DVT with multiple large lymph nodes visualized in the groin and one in the knee. Right foot x-ray in the emergency room showed mild soft tissue swelling throughout the foot without osseous abnormalities. Laboratory evaluation was remarkable for leukocytosis of 16.5 with sodium 132 chloride 96, lactic acid 1.5, and glucose 242. 02/26 Patient was seen and examined. No acute events overnight. Patient reports intermittent shaking and fevers which has improved since admission. Right foot pain well controlled. He has no other complaints. CBC shows WBC count of 17.36, hemoglobin 11.6. CMP shows BUN 22, creatinine 1.38, glucose 102, calcium 8.2, albumin 2.7. Phosphorus 4.8. 02/27 Patient was seen and examined. No acute events overnight. Patient reports continued low grade fevers with RLE redness and swelling. Renal function shows Cr 1.27. General: non toxic, no distress, appears at stated age, obese Derm: R foot multiple ulcers including plantar surface first metatarsal 4-5 cm non-stageble, lateral aspect of ankle 2 cm purulent base ulcer, 2 large starge 3 somewhat purulent and erythematous ulcers on medial aspect of leg Eyes: EOMI, no lid lag, anicteric sclera ENT: Nose and ears atraumatic Neck: No cervical lymphadenopathy, trachea midline, supple Cardiovascular: S1S2 reg, no murmur, positive dorsalis pedis pulse bilateral, no edema Lungs: CTA bilateral, no rhonchi, no rales, no accessory muscle use Ext: muscle strength 5 out of 5 in all 4 extremities grossly, no gross muscle atrophy, no contractures, chronic venous stasis changes toni LEs with R>L noted with RLE erythematous Neuro: no gross focal neuro deficits Psych: Alert, oriented, appropriate affect Assessment: # Right lower extremity multiple diabetic ulcers with cellulitis, rule out osteomyelitis # Sepsis likely related to above # Acute kidney injury # Chronic conditions: Type II DM, hypertension, hyperlipidemia Based on my assessment of this patient, this patient meets a high complexity level of care. Patient has an acute diagnosis of sepsis related to RLE cellulitis r/o OM that poses a threat to life or bodily function. # Right lower extremity multiple diabetic ulcers with cellulitis, rule out osteomyelitis: MRI foot pending. Tylenol PRN for fever. Continue Unasyn 3 g IV Q6H. Decreased NS to 50 cc/hr. Telemetry monitoring. Blood culture pending. ID is consulted. # Sepsis likely related to above # Acute kidney injury: IV hydration as above. I have reviewed the following senior application security consultant notes: I have reviewed the results of the following tests: Renal function. I have ordered the following tests: CBC and BMP. I have discussed the care of this patient with the following independent historian: I have independently interpreted the following test below: I have discussed the management of this patient with the following physician: Objective - Vital Signs Vital signs: Vital Signs Temp 98.2 F 02/27/23 13:23 Pulse 67 02/27/23 13:23 Resp 16 02/27/23 13:23 BP 161/72 02/27/23 13:23 Pulse Ox 98 02/27/23 13:23 FiO2 Intake & Output 02/26/23 02/27/23 02/27/23 18:59 06:59 18:59 Intake Total 200 Balance 200 Intake: Oral 200 Other: Voiding Method Toilet # Voids 3 3 1 # Bowel Movements 1 - Labs CBC & Chem 7: 02/26/23 07:02 02/27/23 04:38 Labs: Abnormal Lab Results - Last 24 Hours (Table) 02/26/23 02/26/23 02/27/23 Range/Units 16:23 21:04 04:38 Creatinine 1.27 H (0.66-1.25) mg/dL POC Glucose (mg/dL) 180 H 156 H (70-110) mg/dL 02/27/23 Range/Units 11:08 Creatinine (0.66-1.25) mg/dL POC Glucose (mg/dL) 171 H (70-110) mg/dL Microbiology - Last 24 Hours (Table) 02/25/23 13:55 Blood Culture - Preliminary Blood 02/25/23 13:40 Blood Culture - Preliminary Blood
--- NOTE | 2023-02-27 15:05 | P.PN ---
Subjective Progress Note Date: 02/27/23 Principal diagnosis: R diabetic foot ulcer and leg cellulitis Patient is a 67-year-old male with a past medical history significant for insulin-dependent Beatties mellitus neuropathy hypertension hyperlipidemia presenting to the hospital with a right total lower extremity swelling redness along with fever and chills, patient was diagnosed with right lower extremity ce llulitis antibiotic was switched over to Unasyn. On today's evaluation that is 02/27/2023 the patient did have a fever last night of 101.6 and 100 F this morning patient is afebrile this afternoon patient is breathing comfortably no chest pain shortness of breath or cough no abdominal pain or diarrhea the right lower extremity swelling redness has slightly decreased Labs creatinine is 1.27 no CBC was done today blood culture has been negative so far. Objective - Vital Signs Vital signs: Vital Signs Temp 100.0 F H 02/27/23 06:58 Pulse 76 02/27/23 06:58 Resp 15 02/27/23 06:58 BP 157/57 02/27/23 06:58 Pulse Ox 93 L 02/27/23 06:58 FiO2 Intake & Output 02/26/23 02/27/23 02/27/23 18:59 06:59 18:59 Intake Total 200 Balance 200 Intake: Oral 200 Other: Voiding Method Toilet # Voids 3 3 1 # Bowel Movements 1 - Exam GENERAL DESCRIPTION: Elderly up in the chair in no distress RESPIRATORY SYSTEM: Unlabored breathing , decreased breath sounds at bases HEART: S1 S2 regular rate and rhythm ,no loud murmurs ABDOMEN: Soft , no tenderness EXTREMITIES: Right lower extremity have diffuse swelling and redness patient did have a wound on the plantar aspect of the right foot which was probing down deep and cultures were obtained - Labs CBC & Chem 7: 02/26/23 07:02 02/27/23 04:38 Labs: Abnormal Lab Results - Last 24 Hours (Table) 02/26/23 02/26/23 02/26/23 Range/Units 07:02 07:02 11:15 WBC 17.36 H (4.50-10.00) X 10*3/uL RBC 4.00 L (4.40-5.60) X 10*6/uL Hgb 11.6 L (13.0-17.0) d/dL Hct 37.5 L (39.6-50.0) % MCHC 30.9 L (32.0-37.0) d/dL RDW 14.6 H (11.5-14.5) % MPV 12.5 H (9.5-12.2) FL Creatinine (0.66-1.25) mg/dL POC Glucose (mg/dL) 178 H (70-110) mg/dL Phosphorus 4.8 H (2.5-4.5) mg/dL 02/26/23 02/26/23 02/27/23 Range/Units 16:23 21:04 04:38 WBC (4.50-10.00) X 10*3/uL RBC (4.40-5.60) X 10*6/uL Hgb (13.0-17.0) d/dL Hct (39.6-50.0) % MCHC (32.0-37.0) d/dL RDW (11.5-14.5) % MPV (9.5-12.2) FL Creatinine 1.27 H (0.66-1.25) mg/dL POC Glucose (mg/dL) 180 H 156 H (70-110) mg/dL Phosphorus (2.5-4.5) mg/dL Microbiology - Last 24 Hours (Table) 02/25/23 13:55 Blood Culture - Preliminary Blood 02/25/23 13:40 Blood Culture - Preliminary Blood Assessment and Plan (1) Cellulitis of right leg Current Visit: Yes Status: Acute Code(s): L03.115 - CELLULITIS OF RIGHT LOWER LIMB SNOMED Code(s): 183115871 (2) Diabetic ulcer of lower extremity Current Visit: Yes Status: Acute Code(s): E11.622 - TYPE 2 DIABETES MELLITUS WITH OTHER SKIN ULCER SNOMED Code(s): 815682322 (3) Infected wound Current Visit: Yes Status: Acute Code(s): T14.8 - OTHER INJURY OF UNSPECIFIED BODY REGION * DO NOT USE * SNOMED Code(s): 12429661 Plan: 1patient was in the hospital with sepsis in this patient with a fever elevated white count source right lower extremity cellulitis in this patient did have some superficial ulcerations but no purulent drainage was noticed with rapid progression of cellulitis possible streptococcal disease 2-patient did have mild insufficiency high risk of nephrotoxicity from vancomycin 3patient did have a fever after disconnection of his vancomycin yesterday patient did have a wound on the plantar aspect of the right foot which was deep probing down all the way to the bone we will obtain a bone scan to make sure evidence of any osteomyelitis, continue patient on Unasyn however will add vancomycin pharmacy to dose while waiting for the culture to finalize local wound care with the dicloxacillin dressing to the open area followed by Jluis wrap for compression discussed with the nursing staff Dictation was produced using [employer] dictation software. please excuse any grammatical, word or spelling errors.
[2023-02-27 16:55] LABS: Glucose,Whole Blood 140 mg/dL (70-110)
[2023-02-27] MEDS: traZODone HCL 50 MG TAB PO SCH (19:55)
[2023-02-27] MEDS: ATORVASTATIN 20 MG TAB PO SCH (19:55)
[2023-02-27 20:38] LABS: Glucose,Whole Blood 153 mg/dL (70-110)
[2023-02-27 20:45] LABS: Basophils # (A) 0.1 k/uL (0-0.2); Basophils % (A) 0 %; Eosinophils # (A) 0.1 k/uL (0-0.7); Eosinophils % (A) 1 %; HCT 33.5 % (39.0-53.0); HGB 10.7 gm/dL (13.0-17.5); Hypochromasia Slight; Lymphocytes # (A) 1.1 k/uL (1.0-4.8); Lymphocytes % (A) 6 %; MCH 30.5 pg (25.0-35.0); MCHC 31.9 g/dL (31.0-37.0); MCV 95.6 fL (80.0-100.0); Mean Platelet Volume 10.9; Monocytes # (A) 1.5 k/uL (0-1.0); Monocytes % (A) 8 %; Neutrophils # (A) 15.1 k/uL (1.3-7.7); Neutrophils % (A) 83 %; Platelet Count 137 k/uL (150-450); RBC 3.51 m/uL (4.30-5.90); RDW 14.4 % (11.5-15.5); WBC 18.1 k/uL (3.8-10.6)
[2023-02-27] MEDS: INSULIN DETEMIR (LEVEMIR) 100 UNIT/ML SYR SQ SCH (20:55)
[2023-02-28] MEDS: SODIUM CHLORIDE 0.9% 1,000 ML IV SCH ×2 (04:03→20:42)
[2023-02-28] MEDS: AMPICILLIN-SULBACTAM 3 GM in SODIUM CHLORIDE 0.9% 100 ML IVPB SCH ×4 (06:05→23:16)
[2023-02-28] MEDS: ACETAMINOPHEN TAB 325 MG TAB PO PRN ×2 (06:09→20:41)
[2023-02-28 06:23] LABS: Glucose,Whole Blood 65 mg/dL (70-110)
[2023-02-28] MEDS: INSULIN ASPART (NovoLOG) 100 UNIT/ML VIAL SQ SCH ×4 (06:43→20:28)
[2023-02-28 06:58] LABS: HCT 32.3 % (39.0-53.0); HGB 10.5 gm/dL (13.0-17.5); MCH 30.1 pg (25.0-35.0); MCHC 32.6 g/dL (31.0-37.0); MCV 92.4 fL (80.0-100.0); Mean Platelet Volume 10.2; Platelet Count 157 k/uL (150-450); RDW 14.3 % (11.5-15.5); WBC 16.9 k/uL (3.8-10.6)
[2023-02-28 07:09] LABS: African American GFR (CKD) 66 (>60 ml/min/1.73 sqM); Anion Gap 7 mmol/L; Blood Urea Nitrogen 18 mg/dL (9-20); Calcium 8.1 mg/dL (8.4-10.2); Carbon Dioxide 26 mmol/L (22-30); Chloride 102 mmol/L (98-107); Glucose 66 mg/dL (74-99); Non-African American GFR(CKD) 57 (>60 ml/min/1.73 sqM); Potassium 3.7 mmol/L (3.5-5.1); Sodium 135 mmol/L (137-145)
[2023-02-28 07:40] LABS: C Reactive Protein 25.5 mg/dL (<1.0)
[2023-02-28 07:41] LABS: Glucose,Whole Blood 122 mg/dL (70-110)
[2023-02-28] MEDS: ESCITALOPRAM 20 MG TAB PO SCH (08:17)
[2023-02-28] MEDS: ENOXAPARIN 40 MG/0.4 ML SYRINGE SQ SCH (08:18)
[2023-02-28] MEDS ORDERED: VANCOMYCIN IV PER PHARMACY 1 EACH MISC MISCELLANE PRN (09:00)
[2023-02-28] MEDS: VANCOMYCIN 2,000 MG in SODIUM CHLORIDE 0.9% 500 ML 500 ML IVPB SCH (09:27)
[2023-02-28 11:20] LABS: Glucose,Whole Blood 142 mg/dL (70-110)
--- NOTE | 2023-02-28 12:42 | P.PN ---
Subjective Progress Note Date: 02/28/23 The patient is a 67-year-old male with a PMH of insulin-dependent diabetes mellitus completed by peripheral neuropathy with history of right lower extremity osteomyelitis, hypertension, and hyperlipidemia who presents to the emergency room with complaints of right lower extremity ulcers, fever, and fatigue. Right foot x-ray in the emergency room showed mild soft tissue swelling throughout the foot without osseous abnormalities. Venous Doppler of right lower extremity was negative for DVT with multiple large lymph nodes visualized in the groin and one in the knee. Right foot x-ray in the emergency room showed mild soft tissue swelling throughout the foot without osseous abnormalities. Laboratory evaluation was remarkable for leukocytosis of 16.5 with sodium 132 chloride 96, lactic acid 1.5, and glucose 242. 02/26 Patient was seen and examined. No acute events overnight. Patient reports intermittent shaking and fevers which has improved since admission. Right foot pain well controlled. He has no other complaints. CBC shows WBC count of 17.36, hemoglobin 11.6. CMP shows BUN 22, creatinine 1.38, glucose 102, calcium 8.2, albumin 2.7. Phosphorus 4.8. 02/27 Patient was seen and examined. No acute events overnight. Patient reports continued low grade fevers with RLE redness and swelling. Renal function shows Cr 1.27. 02/28 Patient was seen and examined. Tmax 100F over the past 24H. CBC shows leukocytosis of 16.9 and hemoglobin of 10.5. BMP shows sodium 135, creatinine 1.3, glucose 66 and calcium 8.1. ESR 44. CRP 25.5. Infectious disease recommends continuing Unasyn and vancomycin. Bone scan is ordered. General: non toxic, no distress, appears at stated age, obese Derm: R foot multiple ulcers including plantar surface first metatarsal 4-5 cm non-stageble, lateral aspect of ankle 2 cm purulent base ulcer, 2 large starge 3 somewhat purulent and erythematous ulcers on medial aspect of leg Eyes: EOMI, no lid lag, anicteric sclera ENT: Nose and ears atraumatic Neck: No cervical lymphadenopathy, trachea midline, supple Cardiovascular: S1S2 reg, no murmur, no edema Lungs: CTA bilateral, no rhonchi, no rales, no accessory muscle use Ext: muscle strength 5 out of 5 in all 4 extremities grossly, no gross muscle atrophy, no contractures, chronic venous stasis changes toni LEs with R>L noted with RLE erythematous Neuro: no gross focal neuro deficits Psych: Alert, oriented, appropriate affect Assessment: # Right lower extremity multiple diabetic ulcers with cellulitis, rule out osteomyelitis # Sepsis likely related to above # Acute kidney injury # Chronic conditions: Type II DM, hypertension, hyperlipidemia Based on my assessment of this patient, this patient meets a high complexity level of care. Patient has an acute diagnosis of sepsis related to RLE cellulitis r/o OM that poses a threat to life or bodily function. # Right lower extremity multiple diabetic ulcers with cellulitis, rule out osteomyelitis: Bone scan pending. Tylenol PRN for fever. Continue Unasyn 3 g IV Q6H. Added Vancomycin dosed per pharmacy as per ID recommendations. Telemetry monitoring. Blood culture negative so far. ID is consulted. # Sepsis likely related to above # Acute kidney injury: IV hydration as above. Daily monitoring of renal function as vancomycin is known to be nephrotoxic. I have reviewed the following senior professional services consultant notes: I have reviewed the results of the following tests: CBC, BMP, ESR, CRP I have ordered the following tests: CBC and BMP. I have discussed the care of this patient with the following independent historian: I have independently interpreted the following test below: I have discussed the management of this patient with the following physician: Objective - Vital Signs Vital signs: Vital Signs Temp 98.2 F 02/28/23 07:37 Pulse 60 02/28/23 07:37 Resp 16 02/28/23 07:37 BP 159/74 02/28/23 07:37 Pulse Ox 96 02/28/23 07:37 FiO2 Intake & Output 02/27/23 02/28/23 02/28/23 18:59 06:59 18:59 Other: # Voids 4 3 1 # Bowel Movements 1 - Labs CBC & Chem 7: 02/28/23 06:33 02/28/23 06:33 Labs: Abnormal Lab Results - Last 24 Hours (Table) 02/27/23 02/27/23 02/27/23 Range/Units 04:38 04:38 16:53 WBC 18.1 H (3.8-10.6) k/uL RBC 3.51 L (4.30-5.90) m/uL Hgb 10.7 L (13.0-17.5) gm/dL Hct 33.5 L (39.0-53.0) % Plt Count 137 L (150-450) k/uL Neutrophils # 15.1 H (1.3-7.7) k/uL Monocytes # 1.5 H (0-1.0) k/uL ESR (0-20) mm/Hr Sodium (137-145) mmol/L Creatinine (0.66-1.25) mg/dL Glucose (74-99) mg/dL POC Glucose (mg/dL) 140 H (70-110) mg/dL Calcium (8.4-10.2) mg/dL C-Reactive Protein 26.8 H (<1.0) mg/dL 02/27/23 02/28/23 02/28/23 Range/Units 20:36 06:21 06:33 WBC (3.8-10.6) k/uL RBC (4.30-5.90) m/uL Hgb (13.0-17.5) gm/dL Hct (39.0-53.0) % Plt Count (150-450) k/uL Neutrophils # (1.3-7.7) k/uL Monocytes # (0-1.0) k/uL ESR 44 H (0-20) mm/Hr Sodium (137-145) mmol/L Creatinine (0.66-1.25) mg/dL Glucose (74-99) mg/dL POC Glucose (mg/dL) 153 H 65 L (70-110) mg/dL Calcium (8.4-10.2) mg/dL C-Reactive Protein (<1.0) mg/dL 02/28/23 02/28/23 02/28/23 Range/Units 06:33 06:33 07:40 WBC 16.9 H (3.8-10.6) k/uL RBC 3.50 L (4.30-5.90) m/uL Hgb 10.5 L (13.0-17.5) gm/dL Hct 32.3 L (39.0-53.0) % Plt Count (150-450) k/uL Neutrophils # (1.3-7.7) k/uL Monocytes # (0-1.0) k/uL ESR (0-20) mm/Hr Sodium 135 L (137-145) mmol/L Creatinine 1.30 H (0.66-1.25) mg/dL Glucose 66 L (74-99) mg/dL POC Glucose (mg/dL) 122 H (70-110) mg/dL Calcium 8.1 L (8.4-10.2) mg/dL C-Reactive Protein 25.5 H (<1.0) mg/dL 02/28/23 Range/Units 11:17 WBC (3.8-10.6) k/uL RBC (4.30-5.90) m/uL Hgb (13.0-17.5) gm/dL Hct (39.0-53.0) % Plt Count (150-450) k/uL Neutrophils # (1.3-7.7) k/uL Monocytes # (0-1.0) k/uL ESR (0-20) mm/Hr Sodium (137-145) mmol/L Creatinine (0.66-1.25) mg/dL Glucose (74-99) mg/dL POC Glucose (mg/dL) 142 H (70-110) mg/dL Calcium (8.4-10.2) mg/dL C-Reactive Protein (<1.0) mg/dL Microbiology - Last 24 Hours (Table) 02/25/23 13:55 Blood Culture - Preliminary Blood 02/25/23 13:40 Blood Culture - Preliminary Blood
[2023-02-28 16:20] LABS: Glucose,Whole Blood 204 mg/dL (70-110)
[2023-02-28 20:28] LABS: Glucose,Whole Blood 132 mg/dL (70-110)
[2023-02-28] MEDS: ATORVASTATIN 20 MG TAB PO SCH (20:41)
[2023-02-28] MEDS: traZODone HCL 50 MG TAB PO SCH (20:41)
[2023-02-28] MEDS: INSULIN DETEMIR (LEVEMIR) 100 UNIT/ML SYR SQ SCH (23:17)
[2023-03-01 00:57] LABS: Glucose,Whole Blood 125 mg/dL (70-110)
[2023-03-01] MEDS: VANCOMYCIN 2,000 MG in SODIUM CHLORIDE 0.9% 500 ML 500 ML IVPB SCH ×2 (02:08→18:25)
[2023-03-01] MEDS: AMPICILLIN-SULBACTAM 3 GM in SODIUM CHLORIDE 0.9% 100 ML IVPB SCH ×4 (06:03→23:47)
[2023-03-01 06:25] LABS: Glucose,Whole Blood 136 mg/dL (70-110)
[2023-03-01] MEDS: INSULIN ASPART (NovoLOG) 100 UNIT/ML VIAL SQ SCH ×4 (06:39→21:20)
[2023-03-01 07:38] LABS: African American GFR (CKD) 80 (>60 ml/min/1.73 sqM); Non-African American GFR(CKD) 69 (>60 ml/min/1.73 sqM)
--- NOTE | 2023-03-01 08:05 | P.PN ---
Subjective Progress Note Date: 02/28/23 Principal diagnosis: R diabetic foot ulcer and leg cellulitis Patient is a 67-year-old male with a past medical history significant for insulin-dependent Beatties mellitus neuropathy hypertension hyperlipidemia presenting to the hospital with a right total lower extremity swelling redness along with fever and chills, patient was diagnosed with right lower extremity ce llulitis antibiotic was switched over to Unasyn. On today's evaluation that is 02/28/2023, patient remains to be afebrile, the patient is breathing comfortably on room air denies any chest pain shortness of breath or cough no nausea vomiting no abdominal pain swelling and discomfort to the right leg has decreased in intensity. Patient white count returned at 16.9 creatinine is 1.30 CRP 25.5 local cultures currently pending blood cultures so far pending. Objective - Vital Signs Vital signs: Vital Signs Temp 98.2 F 02/28/23 07:37 Pulse 60 02/28/23 07:37 Resp 16 02/28/23 07:37 BP 159/74 02/28/23 07:37 Pulse Ox 96 02/28/23 07:37 FiO2 Intake & Output 02/27/23 02/28/23 02/28/23 18:59 06:59 18:59 Other: # Voids 4 3 1 # Bowel Movements 1 - Exam GENERAL DESCRIPTION: Elderly up in the chair in no distress RESPIRATORY SYSTEM: Unlabored breathing , decreased breath sounds at bases HEART: S1 S2 regular rate and rhythm ,no loud murmurs ABDOMEN: Soft , no tenderness EXTREMITIES: Right lower extremity have diffuse swelling and redness patient did have a wound on the plantar aspect of the right foot which was probing down deep and cultures were obtained - Labs CBC & Chem 7: 02/28/23 06:33 03/01/23 06:53 Labs: Abnormal Lab Results - Last 24 Hours (Table) 02/27/23 02/27/23 02/27/23 Range/Units 04:38 04:38 16:53 WBC 18.1 H (3.8-10.6) k/uL RBC 3.51 L (4.30-5.90) m/uL Hgb 10.7 L (13.0-17.5) gm/dL Hct 33.5 L (39.0-53.0) % Plt Count 137 L (150-450) k/uL Neutrophils # 15.1 H (1.3-7.7) k/uL Monocytes # 1.5 H (0-1.0) k/uL ESR (0-20) mm/Hr Sodium (137-145) mmol/L Creatinine (0.66-1.25) mg/dL Glucose (74-99) mg/dL POC Glucose (mg/dL) 140 H (70-110) mg/dL Calcium (8.4-10.2) mg/dL C-Reactive Protein 26.8 H (<1.0) mg/dL 02/27/23 02/28/23 02/28/23 Range/Units 20:36 06:21 06:33 WBC (3.8-10.6) k/uL RBC (4.30-5.90) m/uL Hgb (13.0-17.5) gm/dL Hct (39.0-53.0) % Plt Count (150-450) k/uL Neutrophils # (1.3-7.7) k/uL Monocytes # (0-1.0) k/uL ESR 44 H (0-20) mm/Hr Sodium (137-145) mmol/L Creatinine (0.66-1.25) mg/dL Glucose (74-99) mg/dL POC Glucose (mg/dL) 153 H 65 L (70-110) mg/dL Calcium (8.4-10.2) mg/dL C-Reactive Protein (<1.0) mg/dL 02/28/23 02/28/23 02/28/23 Range/Units 06:33 06:33 07:40 WBC 16.9 H (3.8-10.6) k/uL RBC 3.50 L (4.30-5.90) m/uL Hgb 10.5 L (13.0-17.5) gm/dL Hct 32.3 L (39.0-53.0) % Plt Count (150-450) k/uL Neutrophils # (1.3-7.7) k/uL Monocytes # (0-1.0) k/uL ESR (0-20) mm/Hr Sodium 135 L (137-145) mmol/L Creatinine 1.30 H (0.66-1.25) mg/dL Glucose 66 L (74-99) mg/dL POC Glucose (mg/dL) 122 H (70-110) mg/dL Calcium 8.1 L (8.4-10.2) mg/dL C-Reactive Protein 25.5 H (<1.0) mg/dL 02/28/23 Range/Units 11:17 WBC (3.8-10.6) k/uL RBC (4.30-5.90) m/uL Hgb (13.0-17.5) gm/dL Hct (39.0-53.0) % Plt Count (150-450) k/uL Neutrophils # (1.3-7.7) k/uL Monocytes # (0-1.0) k/uL ESR (0-20) mm/Hr Sodium (137-145) mmol/L Creatinine (0.66-1.25) mg/dL Glucose (74-99) mg/dL POC Glucose (mg/dL) 142 H (70-110) mg/dL Calcium (8.4-10.2) mg/dL C-Reactive Protein (<1.0) mg/dL Microbiology - Last 24 Hours (Table) 02/25/23 13:55 Blood Culture - Preliminary Blood 02/25/23 13:40 Blood Culture - Preliminary Blood Assessment and Plan (1) Cellulitis of right leg Current Visit: Yes Status: Acute Code(s): L03.115 - CELLULITIS OF RIGHT LOWER LIMB SNOMED Code(s): 298433730 (2) Diabetic ulcer of lower extremity Current Visit: Yes Status: Acute Code(s): E11.622 - TYPE 2 DIABETES MELLITUS WITH OTHER SKIN ULCER SNOMED Code(s): 289021986 (3) Infected wound Current Visit: Yes Status: Acute Code(s): T14.8 - OTHER INJURY OF UNSPECIFIED BODY REGION * DO NOT USE * SNOMED Code(s): 94928839 Plan: 1patient was in the hospital with sepsis in this patient with a fever elevated white count source right lower extremity cellulitis in this patient did have some superficial ulcerations but no purulent drainage was noticed with rapid progression of cellulitis possible streptococcal disease 2-patient did have mild insufficiency high risk of nephrotoxicity from vancomycin 3Patient did have resolution of the fever White count is trending down cultures are currently pending bone scan is pending as well 4-we will continue patient on Unasyn and vancomycin with a discharge to [facility] on the basis of final cultures and work-up Dictation was produced using [employer] dictation software. please excuse any grammatical, word or spelling errors.
[2023-03-01] MEDS: ACETAMINOPHEN TAB 325 MG TAB PO PRN ×2 (09:20→20:52)
[2023-03-01] MEDS: ENOXAPARIN 40 MG/0.4 ML SYRINGE SQ SCH (09:20)
[2023-03-01] MEDS: ESCITALOPRAM 20 MG TAB PO SCH (09:21)
[2023-03-01 10:42] LABS: HGB 10.8 gm/dL (13.0-17.5); Hypochromasia Slight; MCH 29.7 pg (25.0-35.0); MCHC 31.7 g/dL (31.0-37.0); Mean Platelet Volume 10.3; Platelet Count 215 k/uL (150-450); RBC 3.62 m/uL (4.30-5.90); RDW 14.3 % (11.5-15.5); WBC 13.2 k/uL (3.8-10.6)
[2023-03-01 12:01] LABS: Glucose,Whole Blood 165 mg/dL (70-110)
--- NOTE | 2023-03-01 12:57 | P.PN ---
Subjective Progress Note Date: 03/01/23 Principal diagnosis: R diabetic foot ulcer and leg cellulitis Patient is a 67-year-old male with a past medical history significant for insulin-dependent Beatties mellitus neuropathy hypertension hyperlipidemia presenting to the hospital with a right total lower extremity swelling redness along with fever and chills, patient was diagnosed with right lower extremity ce llulitis antibiotic was switched over to Unasyn. On today's evaluation that is 03/01/2023, , The patient denies having any fever or chills breathing comfortably at home. Denies any chest pain shortness of breath or cough no abdominal pain patient noticed to have a blister rupture of on the medial aspect of the left foot. Patient white count started to 13.2, creatinine is 1.11, blood and local cult ures currently pending, bone scan is pending Objective - Vital Signs Vital signs: Vital Signs Temp 97.7 F 03/01/23 08:00 Pulse 58 L 03/01/23 08:00 Resp 20 03/01/23 08:00 BP 169/72 03/01/23 08:00 Pulse Ox 98 03/01/23 08:00 FiO2 Intake & Output 02/28/23 03/01/23 03/01/23 18:59 06:59 18:59 Other: # Voids 1 3 - Exam GENERAL DESCRIPTION: Elderly up in the chair in no distress RESPIRATORY SYSTEM: Unlabored breathing , decreased breath sounds at bases HEART: S1 S2 regular rate and rhythm ,no loud murmurs ABDOMEN: Soft , no tenderness EXTREMITIES: Right lower extremity is currently wrapped no drainage on the dressing, patient did have a blister rupture on the medial aspect of the left foot area was cleaned deep cultures were obtained - Labs CBC & Chem 7: 03/01/23 06:53 03/01/23 06:53 Labs: Abnormal Lab Results - Last 24 Hours (Table) 02/28/23 02/28/23 03/01/23 Range/Units 16:19 20:26 00:54 WBC (3.8-10.6) k/uL RBC (4.30-5.90) m/uL Hgb (13.0-17.5) gm/dL Hct (39.0-53.0) % POC Glucose (mg/dL) 204 H 132 H 125 H (70-110) mg/dL 0803/01/23 03/01/23 Range/Units 06:21 06:53 11:59 WBC 13.2 H (3.8-10.6) k/uL RBC 3.62 L (4.30-5.90) m/uL Hgb 10.8 L (13.0-17.5) gm/dL Hct 34.0 L (39.0-53.0) % POC Glucose (mg/dL) 136 H 165 H (70-110) mg/dL Microbiology - Last 24 Hours (Table) 02/27/23 10:54 Gram Stain - Preliminary Foot - Right Wound Culture - Preliminary 02/25/23 13:55 Blood Culture - Preliminary Blood 02/25/23 13:40 Blood Culture - Preliminary Blood Assessment and Plan (1) Cellulitis of right leg Current Visit: Yes Status: Acute Code(s): L03.115 - CELLULITIS OF RIGHT LOWER LIMB SNOMED Code(s): 931952148 (2) Diabetic ulcer of lower extremity Current Visit: Yes Status: Acute Code(s): E11.622 - TYPE 2 DIABETES MELLITUS WITH OTHER SKIN ULCER SNOMED Code(s): 266515265 (3) Infected wound Current Visit: Yes Status: Acute Code(s): T14.8 - OTHER INJURY OF UNSPECIFIED BODY REGION * DO NOT USE * SNOMED Code(s): 72907043 Plan: 1patient was in the hospital with sepsis in this patient with a fever elevated white count source right lower extremity cellulitis in this patient did have some superficial ulcerations but no purulent drainage was noticed with rapid progression of cellulitis possible streptococcal disease 2-patient did have new wound on the medial aspect of the left big toe from ruptured blister which has been cultured 03/01/2023, local wound care to the left medial foot wound with medahoney followed by moist dressing change daily 3Patient did have resolution of the fever White count is trending down cultures are currently pending bone scan is pending as well 4-patient to continue with Unasyn and vancomycin while waiting for the culture finalized Dictation was produced using [employer] dictation software. please excuse any grammatical, word or spelling errors. Time with Patient: Less than 30
--- NOTE | 2023-03-01 13:01 | P.PN ---
Subjective Progress Note Date: 03/01/23 The patient is a 67-year-old male with a PMH of insulin-dependent diabetes mellitus completed by peripheral neuropathy with history of right lower extremity osteomyelitis, hypertension, and hyperlipidemia who presents to the emergency room with complaints of right lower extremity ulcers, fever, and fatigue. Right foot x-ray in the emergency room showed mild soft tissue swelling throughout the foot without osseous abnormalities. Venous Doppler of right lower extremity was negative for DVT with multiple large lymph nodes visualized in the groin and one in the knee. Right foot x-ray in the emergency room showed mild soft tissue swelling throughout the foot without osseous abnormalities. Laboratory evaluation was remarkable for leukocytosis of 16.5 with sodium 132 chloride 96, lactic acid 1.5, and glucose 242. 02/26 Patient was seen and examined. No acute events overnight. Patient reports intermittent shaking and fevers which has improved since admission. Right foot pain well controlled. He has no other complaints. CBC shows WBC count of 17.36, hemoglobin 11.6. CMP shows BUN 22, creatinine 1.38, glucose 102, calcium 8.2, albumin 2.7. Phosphorus 4.8. 02/27 Patient was seen and examined. No acute events overnight. Patient reports continued low grade fevers with RLE redness and swelling. Renal function shows Cr 1.27. 02/28 Patient was seen and examined. Tmax 100F over the past 24H. CBC shows leukocytosis of 16.9 and hemoglobin of 10.5. BMP shows sodium 135, creatinine 1.3, glucose 66 and calcium 8.1. ESR 44. CRP 25.5. Infectious disease recommends continuing Unasyn and vancomycin. Bone scan is ordered. 03/01 Patient was seen and examined. New wound noted on the medial aspect of the left big toe from ruptured blister, cultured today. Tmax 98.2F. CBC shows WBC count of 13.2 and Hg 10.8. Cr is 1.11. Bone scan to be done today. General: non toxic, no distress, appears at stated age, obese Derm: R foot multiple ulcers including plantar surface first metatarsal 4-5 cm non-stageble, lateral aspect of ankle 2 cm purulent base ulcer, 2 large starge 3 somewhat purulent and erythematous ulcers on medial aspect of leg Eyes: EOMI, no lid lag, anicteric sclera ENT: Nose and ears atraumatic Neck: No cervical lymphadenopathy, trachea midline, supple Cardiovascular: S1S2 reg, no murmur, no edema Lungs: CTA bilateral, no rhonchi, no rales, no accessory muscle use Ext: muscle strength 5 out of 5 in all 4 extremities grossly, no gross muscle atrophy, no contractures, chronic venous stasis changes toni LEs with R>L noted with RLE erythematous Neuro: no gross focal neuro deficits Psych: Alert, oriented, appropriate affect Assessment: # Right lower extremity multiple diabetic ulcers with cellulitis, rule out osteomyelitis # Sepsis likely related to above Resolved: Acute kidney injury Chronic conditions: Type II DM, hypertension, hyperlipidemia Based on my assessment of this patient, this patient meets a high complexity level of care. Patient has an acute diagnosis of sepsis related to RLE cellulitis r/o OM that poses a threat to life or bodily function. # Right lower extremity multiple diabetic ulcers with cellulitis, rule out osteomyelitis: Bone scan pending. Tylenol PRN for fever. Continue Unasyn 3 g IV Q6H. Added Vancomycin dosed per pharmacy as per ID recommendations. Telemetry monitoring. Blood culture negative so far. ID is consulted. # Sepsis likely related to above Daily monitoring of renal function as vancomycin is known to be nephrotoxic. I have reviewed the following renewable energy consultant notes: ID note reviewed. I have reviewed the results of the following tests: CBC, renal function. I have ordered the following tests: CBC and BMP. Wound culture collected 03/01 pending. I have discussed the care of this patient with the following independent hist orian: I have independently interpreted the following test below: I have discussed the management of this patient with the following physician: Objective - Vital Signs Vital signs: Vital Signs Temp 97.7 F 03/01/23 08:00 Pulse 58 L 03/01/23 08:00 Resp 20 03/01/23 08:00 BP 169/72 03/01/23 08:00 Pulse Ox 98 03/01/23 08:00 FiO2 Intake & Output 02/28/23 03/01/23 03/01/23 18:59 06:59 18:59 Other: # Voids 1 3 - Labs CBC & Chem 7: 03/01/23 06:53 03/01/23 06:53 Labs: Abnormal Lab Results - Last 24 Hours (Table) 02/28/23 02/28/23 03/01/23 Range/Units 16:19 20:26 00:54 WBC (3.8-10.6) k/uL RBC (4.30-5.90) m/uL Hgb (13.0-17.5) gm/dL Hct (39.0-53.0) % POC Glucose (mg/dL) 204 H 132 H 125 H (70-110) mg/dL 03/01/23 03/01/23 03/01/23 Range/Units 06:21 06:53 11:59 WBC 13.2 H (3.8-10.6) k/uL RBC 3.62 L (4.30-5.90) m/uL Hgb 10.8 L (13.0-17.5) gm/dL Hct 34.0 L (39.0-53.0) % POC Glucose (mg/dL) 136 H 165 H (70-110) mg/dL Microbiology - Last 24 Hours (Table) 02/27/23 10:54 Gram Stain - Preliminary Foot - Right Wound Culture - Preliminary 02/25/23 13:55 Blood Culture - Preliminary Blood 02/25/23 13:40 Blood Culture - Preliminary Blood
[2023-03-01 14:27] VITALS: BMI 40.3
--- NOTE | 2023-03-01 14:58 | NM ---
EXAMINATION TYPE: NM bone 3 phase DATE OF EXAM: 03/01/2023 COMPARISON: NONE HISTORY: Diabetic foot ulcer Delayed whole-body scanning was performed following the injection of 25.7 mCi Tc 99m MDP. Images wer e acquired with blood flow, blood pool and 5.5 hours post injection. FINDINGS: Blood flow: There is diffuse increased radiotracer accumulation through the right foot compared to th e left. Blood pool: Blood pool there is diffuse increased radiotracer the right foot compared to the left. Th is is more focal at the first digit right foot. Static images: there is focal uptake within the first metatarsophalangeal joint space right foot. Dif fuse increased joint space uptake is present bilaterally. Uptake is noted in the bilateral knees as w ell. IMPRESSION: 1. Increased uptake in the region of the first metatarsophalangeal joint space right foot. Correlate for osteomyelitis. 2. Reflex sympathetic dystrophy should be considered within the right lower extremity.
[2023-03-01 16:58] LABS: Glucose,Whole Blood 240 mg/dL (70-110)
[2023-03-01] MEDS ORDERED: VANCOMYCIN TROUGH DUE 1 EACH MISC MISCELLANE ONE (17:00)
[2023-03-01] MEDS: ATORVASTATIN 20 MG TAB PO SCH (20:43)
[2023-03-01] MEDS: traZODone HCL 50 MG TAB PO SCH (20:43)
[2023-03-01] MEDS: cloNIDine HCL 0.1 MG TAB PO PRN (20:43)
[2023-03-01 20:51] LABS: Glucose,Whole Blood 155 mg/dL (70-110)
[2023-03-01] MEDS: INSULIN DETEMIR (LEVEMIR) 100 UNIT/ML SYR SQ SCH (21:20)
[2023-03-02] MEDS: SODIUM CHLORIDE 0.9% 1,000 ML IV SCH (01:52)
[2023-03-02] MEDS: AMPICILLIN-SULBACTAM 3 GM in SODIUM CHLORIDE 0.9% 100 ML IVPB SCH ×4 (05:19→23:29)
[2023-03-02 07:01] LABS: Glucose,Whole Blood 91 mg/dL (70-110)
[2023-03-02] MEDS: ESCITALOPRAM 20 MG TAB PO SCH (09:55)
[2023-03-02] MEDS: VANCOMYCIN 2,000 MG in SODIUM CHLORIDE 0.9% 500 ML 500 ML IVPB SCH (09:55)
[2023-03-02] MEDS: ENOXAPARIN 40 MG/0.4 ML SYRINGE SQ SCH ×2 (09:55→15:42)
[2023-03-02 11:32] LABS: Glucose,Whole Blood 107 mg/dL (70-110)
[2023-03-02] MEDS: INSULIN ASPART (NovoLOG) 100 UNIT/ML VIAL SQ SCH ×4 (11:34→20:52)
--- NOTE | 2023-03-02 14:58 | P.PN ---
Subjective Progress Note Date: 03/02/23 Hospital Course: 67-year-old male with a PMH of insulin-dependent diabetes mellitus completed by peripheral neuropathy with history of right lower extremity osteomyelitis, hypertension, and hyperlipidemia who presents to the emergency room with complaints of right lower extremity ulcers, fever, and fatigue. Right foot x-ray in the emergency room showed mild soft tissue swelling throughout the foot without osseous abnormalities. Venous Doppler of right lower extremity was negative for DVT with multiple large lymph nodes visualized in the groin and one in the knee. Right foot x-ray in the emergency room showed mild soft tissue swelling throughout the foot without osseous abnormalities. Laboratory evaluation was remarkable for leukocytosis of 16.5 with sodium 132 chloride 96, lactic acid 1.5, and glucose 242. Infectious disease recommends continuing Unasyn and vancomycin. Bone scan showed increased uptake in the region of the first metatarsal joint right foot, concerning for osteomyelitis. Vascular surgery consulted. Subjective: Patient seen and examined at bedside. No acute events overnight. Pertinent positives and negatives as discussed above, a complete review of systems was performed and all other systems are negative. Vitals Signs Reviewed. General: non toxic, no distress, appears at stated age, obese Derm: R foot multiple ulcers including plantar surface first metatarsal 4-5 cm non-stageble, lateral aspect of ankle 2 cm purulent base ulcer, 2 large starge 3 somewhat purulent and erythematous ulcers on medial aspect of leg Eyes: EOMI, no lid lag, anicteric sclera ENT: Nose and ears atraumatic Neck: No cervical lymphadenopathy, trachea midline, supple Cardiovascular: S1S2 reg, no murmur, no edema Lungs: CTA bilateral, no rhonchi, no rales, no accessory muscle use Ext: muscle strength 5 out of 5 in all 4 extremities grossly, no gross muscle at rophy, no contractures, chronic venous stasis changes toni LEs with R>L noted with RLE erythematous Neuro: no gross focal neuro deficits Psych: Alert, oriented, appropriate affect Data Reviewed Today: Pertinent Labs: Blood sugars range between 91-240 Imaging: Bone scan showed increased uptake in the region of the first metatarsal joint right foot, concerning for osteomyelitis. Assessment and Plan: Right foot osteomyelitis Right foot diabetic ulcer Sepsis secondary to above Resolved: Acute kidney injury Chronic conditions: Type II DM, hypertension, hyperlipidemia - Discussed management with ID, vascular surgery consulted -Continue IV Unasyn and IV vancomycin, monitor for renal toxicity -Home amlodipine restarted, discontinue IV fluids -Lisinopril and hydrochlorothiazide is still held -History of the home medications reviewed DVT ppx: Lovenox Code status: Full code Anticipated discharge place: Pending clinical course Anticipated discharge time: Pending clinical course Objective - Vital Signs Vital signs: Vital Signs Temp 97.5 F L 03/02/23 11:30 Pulse 61 03/02/23 11:30 Resp 18 03/02/23 11:30 BP 156/68 03/02/23 11:30 Pulse Ox 98 03/02/23 11:30 FiO2 Intake & Output 03/01/23 03/02/23 03/02/23 18:59 06:59 18:59 Weight 131.088 kg Other: Voiding Method Toilet Toilet # Voids 3 1 2 # Bowel Movements 1 - Labs CBC & Chem 7: 03/01/23 06:53 03/01/23 06:53 Labs: Abnormal Lab Results - Last 24 Hours (Table) 03/01/23 03/01/23 Range/Units 16:57 20:48 POC Glucose (mg/dL) 240 H 155 H (70-110) mg/dL Microbiology - Last 24 Hours (Table) 02/27/23 10:54 Gram Stain - Preliminary Foot - Right Wound Culture - Preliminary Beta Hemolytic Strep Group G 03/01/23 11:58 Gram Stain - Preliminary Foot - Right Wound Culture - Preliminary
--- NOTE | 2023-03-02 15:31 | P.GSCN ---
History of Present Illness Consult date: 03/02/23 Reason for Consult: Osteomyelitis, infected diabetic ulcer Requesting physician: Frandy Hernandez History of present illness: This is a pleasant 67-year-old male with a past medical history including diabetes mellitus, peripheral neuropathy, venous stasis, nonhealing diabetic wounds, morbid obesity, hypertension and hyperlipidemia presented to the emergency department several days ago with complaints of fevers and chills. Patient was admitted for infected diabetic ulcer. On admission patient had low- grade fever with a temperature of 99.9 with a max temp during this hospitalization of 101.6. He states that he had an ulcer on his right heel about 2 months ago and was healing well but then he put on appear boots that reopened it. He did not realize that he had ulcer or wound on the bottom of his foot, the lateral side of his great toe he had noticed some redness but was not aware that there was a wound. He has peripheral neuropathy and has no feeling in his foot at all. He had an x-ray of the foot showing mild soft tissue swelling throughout the foot without osseous abnormalities. Patient also had a venous duplex of the right lower extremity which was negative for DVT with multiple large lymph nodes visualized in the groin and 1 at the knee. Yesterday the patient underwent a bone scan reporting increased uptake in the region of the first meta-tarsophalangeal joint space right foot correlate for osteomyelitis. Reflex sympathetic dystrophy should be considered within the right lower extremity. Vascular surgery was consulted for osteomyelitis of the right great toe. Patient currently denies any fevers or chills. Again he states he has no feeling in his right foot he does have feeling up in the calf. He states he usually wears compression hose were these wraps 90% of the time at home. He has not been following with anybody from wound care for his right heel wound. Currently on IV antibiotics and being followed by infectious disease. He denies any shortness of breath, chest pain, abdominal pain, nausea or vomiting. Review of Systems A 14 point review systems was completed all pertinent positives and negatives as stated in the HPI. Past Medical History Past Medical History: Diabetes Mellitus, Hyperlipidemia, Hypertension Additional Past Medical History / Comment(s): POOR CIRCULATION RT LEG. RT ANKLE WOUND History of Any Multi-Drug Resistant Organisms: None Reported Past Surgical History: Adenoidectomy, Orthopedic Surgery, Tonsillectomy Additional Past Surgical History / Comment(s): RECENT WOUND [facility]ENTER FOR RT ANKLE WOUND, NOW DISCHARGED, GANGLION CYST REMOVED LT WRIST, MASS REMOVED FROM RT INNER THIGH/GROIN. IVAN CATARACT LENS IMPLANTS. Past Anesthesia/Blood Transfusion Reactions: No Reported Reaction Past Psychological History: No Psychological Hx Reported Smoking Status: Never smoker Past Alcohol Use History: Occasional Past Drug Use History: None Reported - Past Family History Mother Family Medical History: Renal Disease Father Family Medical History: Diabetes Mellitus Additional Family Medical History / Comment(s): AGE 66 Medications and Allergies Home Medications Medication Instructions Recorded Confirmed Type Atorvastatin [Lipitor] 20 mg PO HS 02/25/23 02/25/23 History Escitalopram [Lexapro] 20 mg PO DAILY 02/25/23 02/25/23 History Insulin NPH Hum/Reg Insulin Hm 40 units SQ BID 02/25/23 02/25/23 History [Novolin 70-30 Flexpen] Lisinopril-Hctz 20-25 mg 1 tab PO DAILY 02/25/23 02/25/23 History [Zestoretic 20-25] amLODIPine [Norvasc] 5 mg PO DAILY 02/25/23 02/25/23 History metFORMIN HCL 500 mg PO BID 02/25/23 02/25/23 History traZODone HCL [Desyrel] 50 - 100 mg PO HS 02/25/23 02/25/23 History Allergies Allergy/AdvReac Type Severity Reaction Status Date / Time No Known Allergies Allergy Verified 02/25/23 17:47 Surgical - Exam Vital Signs Temp Pulse Resp BP Pulse Ox 99.9 F H 91 20 182/83 98 02/25/23 12:24 02/25/23 12:24 02/25/23 12:24 02/25/23 12:24 02/25/23 12:24 General appearance: The patient is alert, oriented, appears in no acute distress. Morbidly obese HET: Head is normocephalic and atraumatic. Pupils are equal and reactive. Neck: Supple. Heart: Regular. Lungs: Equal expansion, normal respiratory effort. Abdomen: Soft, nontender, nondistended. Extremities: Bilateral lower extremity swelling, venous dermatitis. Palpable DP pulses right lower extremity with 2 diabetic ulcers on the medial aspect of tan, one on the lateral aspect of right ankle, plantar aspect of right foot, heel, and right great toe. Neurological: No focal deficits. Peripheral neuropathy. Results - Labs 03/01/23 06:53 03/01/23 06:53 Abnormal Lab Results - Last 24 Hours (Table) 03/01/23 03/01/23 Range/Units 16:57 20:48 POC Glucose (mg/dL) 240 H 155 H (70-110) mg/dL Microbiology - Last 24 Hours (Table) 02/27/23 10:54 Gram Stain - Preliminary Foot - Right Wound Culture - Preliminary Beta Hemolytic Strep Group G 03/01/23 11:58 Gram Stain - Preliminary Foot - Right Wound Culture - Preliminary Assessment and Plan Assessment: 1. Right great toe osteomyelitis with diabetic ulcer 2. Right foot diabetic ulcers 3. Diabetes mellitus 4. Morbid obesity Plan: 1. Keep nothing by mouth after midnight 2. Hold Lovenox in the morning 3. Tentative plan is for debridement of right foot with possible right great toe amputation tomorrow 4. Continue with recommendations from infectious disease 5. Patient will need outpatient follow-up with wound care center Thank you for this consultation, we will continue to follow. The impression and plan of care has been dictated as directed. Dr. Salcedo I performed a history and examination of this patient, discussed the same with the dictator. I agree with the dictator's note ,documented as a scribe. Any additional findings or plans will be noted.
--- NOTE | 2023-03-02 16:30 | P.PN ---
Subjective Progress Note Date: 03/02/23 Principal diagnosis: R diabetic foot ulcer and leg cellulitis Patient is a 67-year-old male with a past medical history significant for insulin-dependent Beatties mellitus neuropathy hypertension hyperlipidemia presenting to the hospital with a right total lower extremity swelling redness along with fever and chills, patient was diagnosed with right lower extremity ce llulitis antibiotic was switched over to Unasyn. On today's evaluation that is 03/02/2023, , The patient remains to be afebrile, the patient is with them and comfortable improvement, the patient denies any chest pain shortness of breath or cough no abdominal pain patient denies any worsening pain to the right big toe Patient white count started to 13.2, creatinine is 1.11 as of yesterday no blood draw today, blood and local cultures currently pending, bone scan is suspicious for osteomyelitis involving the right big toe Objective - Vital Signs Vital signs: Vital Signs Temp 97.5 F L 03/02/23 11:30 Pulse 61 03/02/23 11:30 Resp 18 03/02/23 11:30 BP 156/68 03/02/23 11:30 Pulse Ox 98 03/02/23 11:30 FiO2 Intake & Output 03/01/23 03/02/23 03/02/23 18:59 06:59 18:59 Weight 131.088 kg Other: Voiding Method Toilet Toilet # Voids 3 1 2 # Bowel Movements 1 - Exam GENERAL DESCRIPTION: Elderly up in the chair in no distress RESPIRATORY SYSTEM: Unlabored breathing , decreased breath sounds at bases HEART: S1 S2 regular rate and rhythm ,no loud murmurs ABDOMEN: Soft , no tenderness EXTREMITIES: Right big toe/some swelling redness minimal drainage of the dressing - Labs CBC & Chem 7: 03/01/23 06:53 03/01/23 06:53 Labs: Abnormal Lab Results - Last 24 Hours (Table) 03/01/23 03/01/23 Range/Units 16:57 20:48 POC Glucose (mg/dL) 240 H 155 H (70-110) mg/dL Microbiology - Last 24 Hours (Table) 02/27/23 10:54 Gram Stain - Preliminary Foot - Right Wound Culture - Preliminary Beta Hemolytic Strep Group G 03/01/23 11:58 Gram Stain - Preliminary Foot - Right Wound Culture - Preliminary Assessment and Plan (1) Cellulitis of right leg Current Visit: Yes Status: Acute Code(s): L03.115 - CELLULITIS OF RIGHT LOWER LIMB SNOMED Code(s): 604705366 (2) Diabetic ulcer of lower extremity Current Visit: Yes Status: Acute Code(s): E11.622 - TYPE 2 DIABETES MELLITUS WITH OTHER SKIN ULCER SNOMED Code(s): 591015332 (3) Infected wound Current Visit: Yes Status: Acute Code(s): T14.8 - OTHER INJURY OF UNSPECIFIED BODY REGION * DO NOT USE * SNOMED Code(s): 99806681 Plan: 1patient was in the hospital with sepsis in this patient with a fever elevated white count source right lower extremity cellulitis in this patient did have some superficial ulcerations but no purulent drainage was noticed with rapid progression of cellulitis possible streptococcal disease 2-patient right big toe ostomy myelitis with a wound on the plantar and medial aspect vascular surgery has been considered for possible debridement and deep culture 4-patient to continue with Unasyn and vancomycin while waiting for the culture finalized and monitor clinical course closely Dictation was produced using [employer] dictation software. please excuse any grammatical, word or spelling errors. Time with Patient: Less than 30
[2023-03-02 17:02] LABS: Glucose,Whole Blood 173 mg/dL (70-110)
[2023-03-02] MEDS: ACETAMINOPHEN TAB 325 MG TAB PO PRN (18:08)
[2023-03-02 20:21] LABS: Glucose,Whole Blood 207 mg/dL (70-110)
[2023-03-02] MEDS: INSULIN DETEMIR (LEVEMIR) 100 UNIT/ML SYR SQ SCH (20:52)
[2023-03-02] MEDS: ATORVASTATIN 20 MG TAB PO SCH (20:52)
[2023-03-02] MEDS: traZODone HCL 50 MG TAB PO SCH (20:52)
[2023-03-03] MEDS: VANCOMYCIN 2,000 MG in SODIUM CHLORIDE 0.9% 500 ML 500 ML IVPB SCH (01:38)
[2023-03-03] MEDS: cloNIDine HCL 0.1 MG TAB PO PRN ×2 (01:38→17:03)
[2023-03-03] MEDS: ACETAMINOPHEN TAB 325 MG TAB PO PRN ×3 (01:38→17:03)
[2023-03-03] MEDS ORDERED: DEXAMETHASONE SOD PHOSPHATE 4 MG/ML 1 ML VIAL IV ONE (05:38)
[2023-03-03] MEDS ORDERED: ONDANSETRON 4 MG/2 ML VIAL IVP ONE (05:38)
[2023-03-03] MEDS: AMPICILLIN-SULBACTAM 3 GM in SODIUM CHLORIDE 0.9% 100 ML IVPB SCH ×3 (05:54→17:04)
[2023-03-03] MEDS ORDERED: HYDROmorphone 0.5 MG/0.5 ML SYRINGE IVP PRN (07:00)
[2023-03-03 07:06] LABS: Glucose,Whole Blood 81 mg/dL (70-110)
[2023-03-03] MEDS: INSULIN ASPART (NovoLOG) 100 UNIT/ML VIAL SQ SCH ×4 (07:47→21:29)
[2023-03-03] MEDS: ESCITALOPRAM 20 MG TAB PO SCH (08:19)
[2023-03-03] MEDS: amLODIPine 5 MG TAB PO SCH (08:19)
[2023-03-03 09:02] LABS: Basophils # (A) 0.07 X 10*3/uL (0.00-0.10); Basophils % (A) 0.4 %; Eosinophils # (A) 0.21 X 10*3/uL (0.04-0.35); Eosinophils % (A) 1.3 %; HCT 31.4 % (39.6-50.0); Lymphocytes # (A) 2.24 X 10*3/uL (0.90-5.00); Lymphocytes % (A) 14.3 %; MCH 29.5 pg (27.0-32.0); MCHC 31.8 d/dL (32.0-37.0); MCV 92.6 FL (80.0-97.0); Mean Platelet Volume 12.1 FL (9.5-12.2); Monocytes # (A) 1.25 X 10*3/uL (0.20-1.00); NRBC Per 100 WBC 0 X 10*3/uL (0.00-0.01); Neutrophils # (A) 11.54 X 10*3/uL (1.80-7.70); Neutrophils % (A) 73.9 %; Platelet Count 244 X 10*3/uL (140-440); RBC 3.39 X 10*6/uL (4.40-5.60); RDW 14.4 % (11.5-14.5); WBC 15.64 X 10*3/uL (4.50-10.00)
[2023-03-03 09:04] LABS: BUN/Creat Ratio 12.25 Ratio (12.00-20.00); Blood Urea Nitrogen 14.7 mg/dL (9.0-27.0); Calcium 8.4 mg/dL (8.7-10.3); Carbon Dioxide 25.6 mmol/L (21.6-31.8); Chloride 105 mmol/L (96-109); Glucose 100 mg/dL (70-110); Potassium 4.3 mmol/L (3.5-5.5); Sodium 140 mmol/L (135-145)
[2023-03-03 12:36] LABS: Glucose,Whole Blood 67 mg/dL (70-110)
[2023-03-03 12:59] LABS: Glucose,Whole Blood 80 mg/dL (70-110)
[2023-03-03] MEDS ORDERED: SODIUM CHLORIDE 0.9% 1,000 ML IV ONE (13:11)
--- NOTE | 2023-03-03 13:29 | P.PN ---
Subjective Progress Note Date: 03/03/23 Hospital Course: 67-year-old male with a PMH of insulin-dependent diabetes mellitus completed by peripheral neuropathy with history of right lower extremity osteomyelitis, hypertension, and hyperlipidemia who presents to the emergency room with complaints of right lower extremity ulcers, fever, and fatigue. Right foot x-ray in the emergency room showed mild soft tissue swelling throughout the foot without osseous abnormalities. Venous Doppler of right lower extremity was negative for DVT with multiple large lymph nodes visualized in the groin and one in the knee. Right foot x-ray in the emergency room showed mild soft tissue swelling throughout the foot without osseous abnormalities. Laboratory evaluation was remarkable for leukocytosis of 16.5 with sodium 132 chloride 96, lactic acid 1.5, and glucose 242. Infectious disease recommends continuing Unasyn and vancomycin. Bone scan showed increased uptake in the region of the first metatarsal joint right foot, concerning for osteomyelitis. Vascular surgery consulted. Plan for surgery today. Subjective: Patient seen and examined at bedside. No acute events overnight. Pertinent positives and negatives as discussed above, a complete review of systems was performed and all other systems are negative. Vitals Signs Reviewed. General: non toxic, no distress, appears at stated age, obese Derm: R foot multiple ulcers including plantar surface first metatarsal 4-5 cm non-stageble, lateral aspect of ankle 2 cm purulent base ulcer, 2 large starge 3 somewhat purulent and erythematous ulcers on medial aspect of leg Eyes: EOMI, no lid lag, anicteric sclera ENT: Nose and ears atraumatic Neck: No cervical lymphadenopathy, trachea midline, supple Cardiovascular: S1S2 reg, no murmur, no edema Lungs: CTA bilateral, no rhonchi, no rales, no accessory muscle use Ext: muscle strength 5 out of 5 in all 4 extremities grossly, no gross muscle atrophy, no contractures, chronic venous stasis changes toni LEs with R>L noted with RLE erythematous Neuro: no gross focal neuro deficits Psych: Alert, oriented, appropriate affect Data Reviewed Today: Pertinent Labs: WBC 15.64, hemoglobin 10, creatinine 1.2, blood sugars range be tween 80-173 Imaging: On admission Assessment and Plan: Right foot osteomyelitis Right foot diabetic ulcer Sepsis secondary to above Resolved: Acute kidney injury Chronic conditions: Type II DM, hypertension, hyperlipidemia -Vascular surgery planning for debridement of right foot with possible right great toe amputation -Continue IV Unasyn and IV vancomycin, monitor for renal toxicity, ID following -Home amlodipine restarted, discontinue IV fluids -Lisinopril and hydrochlorothiazide restart tomorrow -History of the home medications reviewed DVT ppx: Lovenox Code status: Full code Anticipated discharge place: Pending clinical course Anticipated discharge time: Pending clinical course Objective - Vital Signs Vital signs: Vital Signs Temp 97.7 F 03/03/23 13:01 Pulse 61 03/03/23 13:01 Resp 19 03/03/23 13:01 BP 185/77 03/03/23 13:01 Pulse Ox 97 03/03/23 13:01 FiO2 Intake & Output 03/02/23 03/03/23 03/03/23 18:59 06:59 18:59 Intake Total 700 Balance 700 Intake: Intake, IV Titration 700 Amount Ampicillin-Sulbactam 3 gm 200 In Sodium Chloride 0.9% 100 ml @ 200 mls/hr IVPB Q6HR [facility] Rx#:[id number] Vancomycin 2,000 mg In 500 Sodium Chloride 0.9% 500 ml 500 ml @ 167 mls/hr IVPB Q16H [facility] Rx#: [id number] Other: Voiding Method Toilet Toilet # Voids 3 2 # Bowel Movements 1 - Labs CBC & Chem 7: 03/03/23 04:20 03/03/23 04:20 Labs: Abnormal Lab Results - Last 24 Hours (Table) 03/02/23 03/02/23 03/03/23 Range/Units 17:00 20:17 04:20 WBC 15.64 H (4.50-10.00) X 10*3/uL RBC 3.39 L (4.40-5.60) X 10*6/uL Hgb 10.0 L (13.0-17.0) d/dL Hct 31.4 L (39.6-50.0) % MCHC 31.8 L (32.0-37.0) d/dL Neutrophils # 11.54 H (1.80-7.70) X 10*3/uL Monocytes # 1.25 H (0.20-1.00) X 10*3/uL POC Glucose (mg/dL) 173 H 207 H (70-110) mg/dL Calcium (8.7-10.3) mg/dL 03/03/23 03/03/23 Range/Units 04:20 12:34 WBC (4.50-10.00) X 10*3/uL RBC (4.40-5.60) X 10*6/uL Hgb (13.0-17.0) d/dL Hct (39.6-50.0) % MCHC (32.0-37.0) d/dL Neutrophils # (1.80-7.70) X 10*3/uL Monocytes # (0.20-1.00) X 10*3/uL POC Glucose (mg/dL) 67 L (70-110) mg/dL Calcium 8.4 L (8.7-10.3) mg/dL Microbiology - Last 24 Hours (Table) 02/27/23 10:54 Gram Stain - Final Foot - Right Wound Culture - Final Beta Hemolytic Strep Group G 02/25/23 13:55 Blood Culture - Final Blood 02/25/23 13:40 Blood Culture - Final Blood 03/01/23 11:58 Gram Stain - Preliminary Foot - Right Wound Culture - Preliminary
[2023-03-03 13:47] LABS: Glucose,Whole Blood 86 mg/dL (70-110)
[2023-03-03] MEDS ORDERED: FAMOTIDINE 20 MG/2 ML VIAL IVP ONE (13:57)
[2023-03-03] MEDS ORDERED: PROPOFOL 10 MG/ML 20 ML VIAL IV ONE (14:12)
[2023-03-03] MEDS ORDERED: MIDAZOLAM 2 MG/2 ML VIAL ONE (14:12)
[2023-03-03] MEDS ORDERED: fentaNYL (PF) 50 MCG/ML 2 ML AMP ONE (14:12)
[2023-03-03] MEDS ORDERED: KETAMINE 10 MG/ML 20 ML VIAL ONE (14:12)
[2023-03-03] MEDS ORDERED: LIDOCAINE 1% INJ 10MG/ML (10 ML MDV) SQ ONE ×2 (14:32)
[2023-03-03 15:20] LABS: Glucose,Whole Blood 95 mg/dL (70-110)
--- NOTE | 2023-03-03 15:25 | P.OP ---
Date of Procedure: 03/03/23 Description of Procedure: DATE OF SERVICE: SURGEON: Zelda Austin DO [employer] SUPERINTENDENT: None PREOPERATIVE DIAGNOSIS: Diabetic foot ulcer right great toe with osteomyelitis POSTOPERATIVE DIAGNOSIS: Same OPERATION: Right first toe ray amputation Amputation of wound VAC Sharp excisional debridement of the plantar foot wound to bone measuring 1 x 1.2 x 0.9 cm ANESTHESIA: Sedation ESTIMATED BLOOD LOSS: 30 SPECIMENS REMOVED: Right great toe COMPLICATIONS: None OPERATIVE FINDINGS: Patient is 67-year-old diabetic male who has neuropathy who presented with a wound to his right lower extremity that was nonhealing. He is on of osteomyelitis on bone scan and was recommended to undergo gratefully d ictation. He seemingly understands risks and benefits of going to proceed. DESCRIPTION OF PROCEDURE: The patient was brought to the operating room under local IV sedation and ring block was performed, and a circular incision was made at the base of the proximal phalanx, deepened through the skin, fat, and tendons. Tendons were divided prior to plantar and dorsal aspect of the great toe. After that, proximal phalanx was dislocated from the metatarsal joint. Further medial dissection was carried through the skin and subcutaneous tissues to allow for right amputation of the metatarsal. The bone was transected. Upon this completion the medial wound was removed as well. The sesamoid bones were removed. Attention was then turned towards the plantar wound. It did connect directly to the area of the amputation spot. The callus was sharply debrided as well as the wound itself to breeding the fibrinous tissues. Healthy-appearing tissue was revealed. Hemostasis appeared adequate and was controlled with electrocautery and 3-0 Vicryl sutures. The medial portion of the wound was reapproximated with interrupted sutures of 2-0 nylon in vertical mattress fashion. At that point given the communicating wounds it was decided to place a wound VAC. 2 pieces of black foam were placed, one in the amputation site and one in the plantar portion of the wound. They did connect together. The VAC was applied and the dressing showed no evidence of leak. The patient tolerated the procedure well.
[2023-03-03] MEDS ORDERED: hydrALAZINE HCL 20 MG/ML 1 ML VIAL IVP ONE (15:45)
[2023-03-03] MEDS: LACTATED RINGERS 1,000 ML IV SCH (16:55)
[2023-03-03] MEDS ORDERED: VANCOMYCIN TROUGH DUE 1 EACH MISC MISCELLANE ONE (17:00)
[2023-03-03 17:23] LABS: Glucose,Whole Blood 116 mg/dL (70-110)
--- NOTE | 2023-03-03 18:08 | CDI ---
Documentation Clarification Form Date: 03/03/2023 06:07:45 PM From: Moni Matt RN, CCDS Admit Date: 02/25/2023 05:40:00 PM Patient Name: James Mcclendon Visit Number: [id number] Discharge Date: ATTENTION: The Clinical Documentation Specialists (CDI) and [facility] Coding Staff appreciate your assistance in clarifying documentation. Please respond to the clarification below the line at the bottom and electronically sign. The CDI & [facility] Coding staff will review the response and follow-up if needed. Please note: Queries are made part of the Legal Health Record. If you have any questions, please contact the author of this message via ITS. Dr. Ariadna Hood Cellulitis is documented in the ID consult and subsequent progress notes. Additional clarification regarding the type of cellulitis is requested. History/risk factors: Diabetes Mellitus, Hyperlipidemia, Hypertension Clinical Indicators: 67-year-old male presenting to the hospital with a right total lower extremity swelling redness along with fever and chills and fatigue patient's symptom has been going on for 3 to 4 days. 02/25 VS: 182/83 91 20 99.9 98% RA 02/25 Labs: WBC 16.5, Neutrophils 13.5, C-Reactive Protein 21.8 He was ruled in for sepsis in this patient with a fever elevated white count source right lower extremity cellulitis. Treatment: Aquacel dressing and mild Jluis wrap for compression Unasyn 3 GM IVPB Q 6 HRS Vancomycin 2,500MG IVPB Q 12 Hrs once 02/25 PTD Vancomycin 2,000MG IVPB Q 16 Hrs ( PTD) 02/27-03/03 [place] area of the redness Please clarify the etiology of the cellulitis, if known: [x ] Cellulitis is a diabetic skin complication [ ] Cellulitis is not a diabetic skin complication [ ] Other, please specify: [ ] Unable to determine (Template Last Revised: July 2022) MTDD
[2023-03-03 18:25] LABS: African American GFR (CKD) >90 (>60 ml/min/1.73 sqM); Non-African American GFR(CKD) 83 (>60 ml/min/1.73 sqM)
[2023-03-03] MEDS: traZODone HCL 50 MG TAB PO SCH (19:41)
[2023-03-03] MEDS: ATORVASTATIN 20 MG TAB PO SCH (19:41)
[2023-03-03 20:57] LABS: Glucose,Whole Blood 278 mg/dL (70-110)
[2023-03-03] MEDS: INSULIN DETEMIR (LEVEMIR) 100 UNIT/ML SYR SQ SCH (21:29)
[2023-03-04] MEDS: AMPICILLIN-SULBACTAM 3 GM in SODIUM CHLORIDE 0.9% 100 ML IVPB SCH ×4 (00:11→17:51)
[2023-03-04] MEDS: LACTATED RINGERS 1,000 ML IV SCH (06:22)
[2023-03-04 07:49] LABS: Glucose,Whole Blood 123 mg/dL (70-110)
[2023-03-04] MEDS: amLODIPine 5 MG TAB PO SCH (08:13)
[2023-03-04] MEDS: ESCITALOPRAM 20 MG TAB PO SCH (08:13)
[2023-03-04] MEDS: ENOXAPARIN 40 MG/0.4 ML SYRINGE SQ SCH (08:13)
[2023-03-04] MEDS: INSULIN ASPART (NovoLOG) 100 UNIT/ML VIAL SQ SCH ×4 (08:14→21:01)
[2023-03-04] MEDS ORDERED: LISINOPRIL-HCTZ 20-25 MG 1 EACH TAB PO SCH (09:00)
--- NOTE | 2023-03-04 10:57 | P.PN ---
Subjective Progress Note Date: 03/04/23 Principal diagnosis: Osteomyelitis, infected diabetic ulcer Patient seen and examined today as follow-up. He is sitting up in chair. He denies any fevers or chills. He is afebrile. He reports no pain at this time. He has a wound VAC in place with good suction with serosanguineous drainage. Objective - Vital Signs Vital signs: Vital Signs Temp 97.7 F 03/04/23 07:47 Pulse 61 03/04/23 07:47 Resp 16 03/04/23 07:47 BP 163/84 03/04/23 07:47 Pulse Ox 96 03/04/23 07:47 FiO2 Intake & Output 03/03/23 03/04/23 03/04/23 18:59 06:59 18:59 Intake Total 225 500 Output Total 30 Balance 195 500 Intake: IV 225 Oral 500 Output: Estimated Blood Loss 30 Other: Voiding Method Toilet Toilet Toilet # Voids 1 3 - Exam General appearance: The patient is alert, oriented, appears in no acute distre ss. HET: Head is normocephalic and atraumatic. Neck: Supple. Abdomen: Soft, nondistended. Extremities: Right foot, great toe amputation with wound VAC in place with good suction. Palpable DP pulse. Neurological: No focal deficits. Strength and sensation are grossly intact. - Labs CBC & Chem 7: 03/03/23 04:20 03/03/23 17:37 Labs: Abnormal Lab Results - Last 24 Hours (Table) 03/03/23 03/03/23 03/03/23 Range/Units 12:34 17:22 20:44 POC Glucose (mg/dL) 67 L 116 H 278 H (70-110) mg/dL 03/04/23 Range/Units 07:47 POC Glucose (mg/dL) 123 H (70-110) mg/dL Microbiology - Last 24 Hours (Table) 03/01/23 11:58 Anaerobic Culture - Preliminary Foot - Right 02/27/23 10:54 Anaerobic Culture - Preliminary Foot - Right Anaerobic Gm Negative Bacilli 03/01/23 11:58 Gram Stain - Final Foot - Right Wound Culture - Final Beta Hemolytic Strep Group G 02/27/23 10:54 Gram Stain - Final Foot - Right Wound Culture - Final Beta Hemolytic Strep Group G Assessment and Plan Assessment: 1. Right great toe diabetic ulcer with osteomyelitis status post great toe amputation and wound debridement 2. Right foot diabetic ulcers 3. Diabetes mellitus 4. Morbid obesity Plan: 1. Consistent carbohydrate diet 2. Consult to wound care for continued local wound care in outpatient setting 3. Continue with recommendations from infectious disease 4. Prefer nonweightbearing to right foot however may have some heel touch as needed. This was discussed with the patient. 5. Postop shoe for right foot with ambulation 6. Patient is cleared from vascular surgery for discharge once otherwise medically cleared Thank you for this consultation. The impression and plan of care has been dictated as directed. Dr. Austin I performed a history and examination of this patient, discussed the same with the dictator. I agree with the dictator's note ,documented as a scribe. Any additional findings or plans will be noted.
--- NOTE | 2023-03-04 11:20 | P.PN ---
Subjective Progress Note Date: 03/04/23 Hospital Course: 67-year-old male with a PMH of insulin-dependent diabetes mellitus completed by peripheral neuropathy with history of right lower extremity osteomyelitis, hypertension, and hyperlipidemia who presents to the emergency room with complaints of right lower extremity ulcers, fever, and fatigue. Right foot x-ray in the emergency room showed mild soft tissue swelling throughout the foot without osseous abnormalities. Venous Doppler of right lower extremity was negative for DVT with multiple large lymph nodes visualized in the groin and one in the knee. Right foot x-ray in the emergency room showed mild soft tissue swelling throughout the foot without osseous abnormalities. Laboratory evaluation was remarkable for leukocytosis of 16.5 with sodium 132 chloride 96, lactic acid 1.5, and glucose 242. Infectious disease recommends continuing Unasyn and vancomycin. Bone scan showed increased uptake in the region of the first metatarsal joint right foot, concerning for osteomyelitis. Vascular surgery consulted. Status post right great toe amputation wound debridement. Has a wound VAC in place. Subjective: Patient seen and examined at bedside. No acute events overnight. Pertinent positives and negatives as discussed above, a complete review of systems was performed and all other systems are negative. Vitals Signs Reviewed. General: non toxic, no distress, appears at stated age, obese Derm: Right foot dressing clean, dry, intact, wound VAC in place Eyes: EOMI, no lid lag, anicteric sclera ENT: Nose and ears atraumatic Neck: No cervical lymphadenopathy, trachea midline, supple Cardiovascular: S1S2 reg, no murmur, no edema Lungs: CTA bilateral, no rhonchi, no rales, no accessory muscle use Ext: muscle strength 5 out of 5 in all 4 extremities grossly, no gross muscle atrophy, no contractures, chronic venous stasis changes toni LEs with R>L noted with RLE erythematous Neuro: no gross focal neuro deficits Psych: Alert, oriented, appropriate affect Data Reviewed Today: Pertinent Labs: CBC and BMP pending, will be reviewed when available, blood sugars range between 123 08[birth year]1977 Imaging: No new imaging Assessment and Plan: Right foot osteomyelitis, status post right great toe amputation and wound debridement Right foot diabetic ulcer Sepsis secondary to above Resolved: Acute kidney injury Chronic conditions: Type II DM, hypertension, hyperlipidemia -Vascular surgery note reviewed, clear for discharge -Continue IV Unasyn and IV vancomycin, monitor for renal toxicity, ID following -Patient likely to receive PICC line and discharge home with IV antibiotics and wound VAC -On home antihypertensives -Continue rest of home medications DVT ppx: Lovenox Code status: Full code Anticipated discharge place: Home with home care Anticipated discharge time: 1-2 days Objective - Vital Signs Vital signs: Vital Signs Temp 97.7 F 03/04/23 07:47 Pulse 61 03/04/23 07:47 Resp 16 03/04/23 07:47 BP 163/84 03/04/23 07:47 Pulse Ox 96 03/04/23 07:47 FiO2 Intake & Output 03/03/23 03/04/23 03/04/23 18:59 06:59 18:59 Intake Total 225 500 Output Total 30 Balance 195 500 Intake: IV 225 Oral 500 Output: Estimated Blood Loss 30 Other: Voiding Method Toilet Toilet Toilet # Voids 1 3 - Labs CBC & Chem 7: 03/03/23 04:20 03/03/23 17:37 Labs: Abnormal Lab Results - Last 24 Hours (Table) 03/03/23 03/03/23 03/03/23 Range/Units 12:34 17:22 20:44 POC Glucose (mg/dL) 67 L 116 H 278 H (70-110) mg/dL 03/04/23 Range/Units 07:47 POC Glucose (mg/dL) 123 H (70-110) mg/dL Microbiology - Last 24 Hours (Table) 03/01/23 11:58 Anaerobic Culture - Preliminary Foot - Right 02/27/23 10:54 Anaerobic Culture - Preliminary Foot - Right Anaerobic Gm Negative Bacilli 03/01/23 11:58 Gram Stain - Final Foot - Right Wound Culture - Final Beta Hemolytic Strep Group G 02/27/23 10:54 Gram Stain - Final Foot - Right Wound Culture - Final Beta Hemolytic Strep Group G
[2023-03-04 12:23] LABS: Glucose,Whole Blood 202 mg/dL (70-110)
--- NOTE | 2023-03-04 12:46 | P.CONS ---
History of Present Illness - Reason for Consult Consult date: 03/04/23 wound care - History of Present Illness This is a 67-year-old patient with a known history of diabetes being seen by the wound care center on [address] for a nonhealing ulceration to the right great toe. Patient came in with gangrene to the right great toe and osteomyelitis resulting in a amputation of the great toe. At this time patient has a negative pressure wound VAC in place. Dressing is intact without any concerns noted. Patient past medical history significant for diabetes, hyperlipidemia, hypertension, previous nonhealing wound and is a lifelong nonsmoker. Review Of Systems: Constitutional: No fever, no chills, no night sweats. No weight change. No weakness, fatigue or lethargy. No daytime sleepiness. Integumentary:reports wounds, no lesions. No rash or pruritus. No unusual bruising. No change in hair or nails. Physical exam: General Appearance: Alert, cooperative, no distress, appears stated age. Skin: See HPI all other Skin color, texture, tugor normal, no rashes or lesions. Neurologic: Alert oriented x3 Assessment: 1. 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 Osteoarthritis 3. Diabetic foot ulcer Plan: 1.Apply negative pressure wound VAC at 125 mmHg continuous suction. Change Wednesday. Upon discharge if the home wound VAC is not available apply absorptive silver rope to the site, saline moistened gauze, dry gauze, rolled gauze and secure with paper tape. Negative pressure wound VAC should be initiated once home with homecare. Thank you for the consultation any questions to contact the wound care center DNP note has been reviewed and discussed with Dr. Mcpherson and the impression and plan of care has been directed as dictated. Past Medical History Past Medical History: Diabetes Mellitus, Hyperlipidemia, Hypertension Additional Past Medical History / Comment(s): POOR CIRCULATION RT LEG. RT ANKLE WOUND History of Any Multi-Drug Resistant Organisms: None Reported Past Surgical History: Adenoidectomy, Orthopedic Surgery, Tonsillectomy Additional Past Surgical History / Comment(s): RECENT [facility] FOR RT ANKLE WOUND, NOW DISCHARGED, GANGLION CYST REMOVED LT WRIST, MASS REMOVED FROM RT INNER THIGH/GROIN. IVAN CATARACT LENS IMPLANTS. Past Anesthesia/Blood Transfusion Reactions: No Reported Reaction Past Psychological History: No Psychological Hx Reported Smoking Status: Never smoker Past Alcohol Use History: Occasional Past Drug Use History: None Reported - Past Family History Mother Family Medical History: Renal Disease Father Family Medical History: Diabetes Mellitus Additional Family Medical History / Comment(s): AGE 66 Medications and Allergies Home Medications Medication Instructions Recorded Confirmed Type Atorvastatin [Lipitor] 20 mg PO HS 02/25/23 02/25/23 History Escitalopram [Lexapro] 20 mg PO DAILY 02/25/23 02/25/23 History Insulin NPH Hum/Reg Insulin Hm 40 units SQ BID 02/25/23 02/25/23 History [Novolin 70-30 Flexpen] Lisinopril-Hctz 20-25 mg 1 tab PO DAILY 02/25/23 02/25/23 History [Zestoretic 20-25] amLODIPine [Norvasc] 5 mg PO DAILY 02/25/23 02/25/23 History metFORMIN HCL 500 mg PO BID 02/25/23 02/25/23 History traZODone HCL [Desyrel] 50 - 100 mg PO HS 02/25/23 02/25/23 History Allergies Allergy/AdvReac Type Severity Reaction Status Date / Time No Known Allergies Allergy Verified 03/03/23 13:13 Physical Exam Vitals: Vital Signs Temp Pulse Resp BP BP Pulse Ox 03/04/23 07:47 97.7 F 61 16 163/84 96 03/04/23 01:46 97.9 F 61 18 165/97 93 L 03/03/23 21:36 76 18 153/76 93 L 03/03/23 20:30 80 18 151/62 93 L 03/03/23 20:15 62 18 139/68 93 L 03/03/23 19:59 69 18 153/76 94 L 03/03/23 17:12 64 19 189/85 96 03/03/23 16:20 71 16 170/81 95 03/03/23 16:05 68 16 169/77 94 L 03/03/23 15:50 62 16 192/91 94 L 03/03/23 15:35 63 16 197/81 98 03/03/23 15:20 71 16 163/57 98 03/03/23 15:06 77 16 172/74 94 L 03/03/23 13:48 96.8 F L 53 L 16 178/88 97 03/03/23 13:01 97.7 F 61 19 185/77 97 Intake and Output 03/03/23 03/04/23 03/04/23 22:59 06:59 14:59 Intake Total 25 500 Balance 25 500 Intake: IV 25 Oral 500 Other: Voiding Method Toilet Toilet # Voids 1 3 Results CBC & Chem 7: 03/03/23 04:20 03/03/23 17:37 Labs: Abnormal Lab Results - Last 24 Hours (Table) 03/03/23 03/03/23 03/04/23 Range/Units 17:22 20:44 07:47 POC Glucose (mg/dL) 116 H 278 H 123 H (70-110) mg/dL 03/04/23 Range/Units 12:22 POC Glucose (mg/dL) 202 H (70-110) mg/dL Microbiology - Last 24 Hours (Table) 03/01/23 11:58 Anaerobic Culture - Preliminary Foot - Right 02/27/23 10:54 Anaerobic Culture - Preliminary Foot - Right Anaerobic Gm Negative Bacilli 03/01/23 11:58 Gram Stain - Final Foot - Right Wound Culture - Final Beta Hemolytic Strep Group G 02/27/23 10:54 Gram Stain - Final Foot - Right Wound Culture - Final Beta Hemolytic Strep Group G Assessment and Plan (1) Non-pressure 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
[2023-03-04 14:38] LABS: Basophils # (A) 0.06 X 10*3/uL (0.00-0.10); Basophils % (A) 0.3 %; Eosinophils # (A) 0.07 X 10*3/uL (0.04-0.35); Eosinophils % (A) 0.4 %; HCT 31.8 % (39.6-50.0); HGB 9.9 d/dL (13.0-17.0); MCH 28.9 pg (27.0-32.0); MCHC 31.1 d/dL (32.0-37.0); MCV 92.7 FL (80.0-97.0); Monocytes # (A) 1.25 X 10*3/uL (0.20-1.00); Monocytes % (A) 6.8 %; NRBC Per 100 WBC 0 X 10*3/uL (0.00-0.01); Neutrophils # (A) 14.34 X 10*3/uL (1.80-7.70); Neutrophils % (A) 77.8 %; Platelet Count 280 X 10*3/uL (140-440); RBC 3.43 X 10*6/uL (4.40-5.60); RDW 14.4 % (11.5-14.5); WBC 18.41 X 10*3/uL (4.50-10.00)
[2023-03-04 17:07] LABS: Glucose,Whole Blood 127 mg/dL (70-110)
[2023-03-04] MEDS: ATORVASTATIN 20 MG TAB PO SCH (20:30)
[2023-03-04] MEDS: cloNIDine HCL 0.1 MG TAB PO PRN (20:30)
[2023-03-04] MEDS: INSULIN DETEMIR (LEVEMIR) 100 UNIT/ML SYR SQ SCH (20:30)
[2023-03-04] MEDS: traZODone HCL 50 MG TAB PO SCH (20:30)
[2023-03-04 20:31] LABS: Glucose,Whole Blood 195 mg/dL (70-110)
[2023-03-05] MEDS: AMPICILLIN-SULBACTAM 3 GM in SODIUM CHLORIDE 0.9% 100 ML IVPB SCH ×3 (00:05→13:11)
[2023-03-05 01:03] LABS: BUN/Creat Ratio 14.82 Ratio (12.00-20.00); Blood Urea Nitrogen 16.3 mg/dL (9.0-27.0); Calcium 8.5 mg/dL (8.7-10.3); Carbon Dioxide 24.3 mmol/L (21.6-31.8); Chloride 105 mmol/L (96-109); Glucose 145 mg/dL (70-110); Potassium 4.3 mmol/L (3.5-5.5); Sodium 138 mmol/L (135-145)
[2023-03-05] MEDS: LACTATED RINGERS 1,000 ML IV SCH (06:27)
[2023-03-05 07:08] LABS: Glucose,Whole Blood 82 mg/dL (70-110)
[2023-03-05] MEDS: INSULIN ASPART (NovoLOG) 100 UNIT/ML VIAL SQ SCH ×3 (07:48→18:09)
[2023-03-05 08:02] LABS: Basophils % (A) 0 %; Eosinophils # (A) 0.2 k/uL (0-0.7); Eosinophils % (A) 1 %; HCT 31.5 % (39.0-53.0); HGB 10.2 gm/dL (13.0-17.5); Lymphocytes # (A) 1.9 k/uL (1.0-4.8); Lymphocytes % (A) 14 %; MCH 29.6 pg (25.0-35.0); MCHC 32.4 g/dL (31.0-37.0); MCV 91.4 fL (80.0-100.0); Mean Platelet Volume 9.3; Monocytes # (A) 1.2 k/uL (0-1.0); Monocytes % (A) 9 %; Neutrophils % (A) 74 %; Platelet Count 256 k/uL (150-450); RBC 3.45 m/uL (4.30-5.90); RDW 14.2 % (11.5-15.5); WBC 13.4 k/uL (3.8-10.6)
[2023-03-05 08:09] LABS: African American GFR (CKD) 77 (>60 ml/min/1.73 sqM); Anion Gap 8 mmol/L; Blood Urea Nitrogen 17 mg/dL (9-20); Calcium 8.1 mg/dL (8.4-10.2); Carbon Dioxide 26 mmol/L (22-30); Chloride 104 mmol/L (98-107); Glucose 72 mg/dL (74-99); Non-African American GFR(CKD) 66 (>60 ml/min/1.73 sqM); Potassium 3.9 mmol/L (3.5-5.1); Sodium 138 mmol/L (137-145)
[2023-03-05] MEDS ORDERED: lisinopriL 10 MG TAB PO SCH (09:00)
[2023-03-05] MEDS ORDERED: amLODIPine 10 MG TAB PO SCH (09:00)
[2023-03-05] MEDS: ESCITALOPRAM 20 MG TAB PO SCH (09:58)
[2023-03-05] MEDS: ENOXAPARIN 40 MG/0.4 ML SYRINGE SQ SCH (09:58)
--- NOTE | 2023-03-05 10:34 | P.PN ---
Subjective Progress Note Date: 03/05/23 Principal diagnosis: Osteomyelitis, infected diabetic ulcer Patient is seen and examined today as a follow-up. He is postop right great toe amputation and debridement. Wound VAC is in place with good suction. Patient is supposed to go for PICC line placement today. Wound VAC has been approved for home. He remains afebrile. He states pain is minimal. Denies any fevers or chills, no shortness of breath, chest pain, abdominal pain, nausea or vomiting. Objective - Vital Signs Vital signs: Vital Signs Temp 98.3 F 03/05/23 07:10 Pulse 58 L 03/05/23 07:10 Resp 16 03/05/23 07:10 BP 174/84 03/05/23 07:10 Pulse Ox 97 03/05/23 07:10 FiO2 Intake & Output 03/04/23 03/05/23 03/05/23 18:59 06:59 18:59 Weight 131.088 kg Other: Voiding Method Toilet Toilet # Voids 1 - Exam General appearance: The patient is alert, oriented, appears in no acute distress. HET: Head is normocephalic and atraumatic. Neck: Supple. Abdomen: Soft, nondistended. Extremities: Right foot, great toe amputation with wound VAC in place with good suction. Palpable DP pulse. Neurological: No focal deficits. Strength and sensation are grossly intact. - Labs CBC & Chem 7: 03/05/23 06:34 03/05/23 06:34 Labs: Abnormal Lab Results - Last 24 Hours (Table) 03/04/23 03/04/23 03/04/23 Range/Units 06:21 06:21 12:22 WBC 18.41 H (4.50-10.00) X 10*3/uL RBC 3.43 L (4.40-5.60) X 10*6/uL Hgb 9.9 L (13.0-17.0) d/dL Hct 31.8 L (39.6-50.0) % MCHC 31.1 L (32.0-37.0) d/dL Neutrophils # 14.34 H (1.80-7.70) X 10*3/uL Monocytes # 1.25 H (0.20-1.00) X 10*3/uL Glucose 145 H (70-110) mg/dL POC Glucose (mg/dL) 202 H (70-110) mg/dL Calcium 8.5 L (8.7-10.3) mg/dL 03/04/23 03/04/23 03/05/23 Range/Units 17:06 20:30 06:34 WBC 13.4 H (4.50-10.00) X 10*3/uL RBC 3.45 L (4.40-5.60) X 10*6/uL Hgb 10.2 L (13.0-17.0) d/dL Hct 31.5 L (39.6-50.0) % MCHC (32.0-37.0) d/dL Neutrophils # 10.0 H (1.80-7.70) X 10*3/uL Monocytes # 1.2 H (0.20-1.00) X 10*3/uL Glucose (70-110) mg/dL POC Glucose (mg/dL) 127 H 195 H (70-110) mg/dL Calcium (8.7-10.3) mg/dL 03/05/23 Range/Units 06:34 WBC (4.50-10.00) X 10*3/uL RBC (4.40-5.60) X 10*6/uL Hgb (13.0-17.0) d/dL Hct (39.6-50.0) % MCHC (32.0-37.0) d/dL Neutrophils # (1.80-7.70) X 10*3/uL Monocytes # (0.20-1.00) X 10*3/uL Glucose 72 L (70-110) mg/dL POC Glucose (mg/dL) (70-110) mg/dL Calcium 8.1 L (8.7-10.3) mg/dL Microbiology - Last 24 Hours (Table) 02/27/23 10:54 Anaerobic Culture - Final Foot - Right Anaerobic Gm Negative Bacilli Assessment and Plan Assessment: 1. Right great toe diabetic ulcer with osteomyelitis status post great toe amputation and wound debridement 2. Right foot diabetic ulcers 3. Diabetes mellitus 4. Morbid obesity Plan: 1. Consistent carbohydrate diet 2. Consult to wound care for continued local wound care in outpatient setting 3. Continue with recommendations from infectious disease 4. Prefer nonweightbearing to right foot however may have some heel touch as needed. This was discussed with the patient. 5. Postop shoe for right foot with ambulation 6. Patient is cleared from vascular surgery for discharge. Thank you for this consultation, we will sign off at this time. The impression and plan of care has been dictated as directed. Dr. Austin I performed a history and examination of this patient, discussed the same with the dictator. I agree with the dictator's note ,documented as a scribe. Any additional findings or plans will be noted.
[2023-03-05] MEDS ORDERED: LIDOCAINE 1% INJ 10MG/ML (20 ML MDV) SQ ONE (11:06)
[2023-03-05 11:43] LABS: Glucose,Whole Blood 163 mg/dL (70-110)
--- NOTE | 2023-03-05 11:53 | IR ---
PICC LINE PLACEMENT: HISTORY: Infection requiring long-term antibiotic therapy PROCEDURE: Ultrasound and fluoroscopic guidance of PICC line placement. COMPLICATIONS: None ANESTHESIA: 1. 1% Lidocaine locally. FINDINGS/TECHNIQUE: The procedure was explained to the patient. The risks, complications, benefits and alternatives were discussed and any questions were answered. Informed consent was obtained. The patient was placed supine on the fluoroscopic table and prepped and draped in the usual sterile fash ion. Utilizing a 21 gauge needle and sonographic and fluoroscopic guidance, access in the left ceph alic vein was achieved and there is placement of a 0.018 guidewire. The vein is patent. A 4-F sheat h was placed over the guidewire. The guidewire and dilator were removed and a 4-F. PICC line was nick tereso through the sheath with the tip at the level of the SVC. The sheath was removed, the catheter wa s flushed and sutured into position. The patient was stable throughout the procedure and remained st able upon discharge from the Department of Radiology. The vein puncture was patent under ultrasound. A camacho scale image was obtained to document patency of the vein punctured. All elements of the maximal barrier technique were utilized. FLUOROSCOPY TIME: DAP 0.004Gy cm2 IMPRESSION: Successful PICC line placement under ultrasound and fluoroscopic guidance.
--- NOTE | 2023-03-05 12:46 | P.DS ---
Providers Date of admission: 02/25/23 17:40 Expected date of discharge: 03/05/23 Attending physician: Bhumi Rosa DO Consults: 02/25/23 21:16 Consult Physician Urgent Consulting Provider: Ariadna Hood Consult Reason/Comments: RLE diabetic ulcers Do you want consulting provider notified?: Yes 03/02/23 14:48 Consult Physician Routine Consulting Provider: Zelda Austin Consult Reason/Comments: Osteomyelitis Do you want consulting provider notified?: Yes [facility]: Discharge Diagnosis: Right foot osteomyelitis, status post right great toe amputation and wound debridement Right foot diabetic ulcer Sepsis secondary to above [facility] Hospital Course: 67-year-old male with a PMH of insulin-dependent diabetes mellitus completed by peripheral neuropathy with history of right lower extremity osteomyelitis, hypertension, and hyperlipidemia who presents to the emergency room with complaints of right lower extremity ulcers, fever, and fatigue. Right foot x-ray in the emergency room showed mild soft tissue swelling throughout the foot without osseous abnormalities. Venous Doppler of right lower extremity was negative for DVT with multiple large lymph nodes visualized in the groin and one in the knee. Right foot x-ray in the emergency room showed mild soft tissue swelling throughout the foot without osseous abnormalities. Laboratory evaluation was remarkable for leukocytosis of 16.5 with sodium 132 chloride 96, lactic acid 1.5, and glucose 242. Infectious disease recommends continuing Unasyn and vancomycin. Bone scan showed increased uptake in the region of the first metatarsal joint right foot, concerning for osteomyelitis. Vascular surgery consulted. Status post right great toe amputation wound debridement. Has a wound VAC in place. Going home with PICC line, 6 weeks of IV ceftriaxone and oral flagyl. Patient seen and examined at bedside. Vital signs reviewed and stable. General: non toxic, no distress, appears at stated age, obese Derm: Right foot dressing clean, dry, intact, wound VAC in place Eyes: EOMI, no lid lag, anicteric sclera ENT: Nose and ears atraumatic Neck: No cervical lymphadenopathy, trachea midline, supple Cardiovascular: S1S2 reg, no murmur, no edema Lungs: CTA bilateral, no rhonchi, no rales, no accessory muscle use Ext: muscle strength 5 out of 5 in all 4 extremities grossly, no gross muscle atrophy, no contractures, chronic venous stasis changes toni LEs with R>L noted with RLE erythematous Neuro: no gross focal neuro deficits Psych: Alert, oriented, appropriate affec A total of 33 minutes of time were spent preparing this complex discharge summary. Patient was discharged on 03/05/23 at 12:33. Patient Condition at Discharge: Stable Plan - Discharge Summary Discharge Rx Participant: Yes New Discharge Prescriptions: New metroNIDAZOLE [Flagyl] 500 mg PO TID #126 tab hydroCHLOROthiazide [Hydrodiuril] 50 mg PO DAILY #90 tab amLODIPine [Norvasc] 10 mg PO DAILY #90 tab cefTRIAXone [Rocephin] 2 gm IVPB Q24H #1 ml lisinopriL [Zestril] 30 mg PO DAILY #90 tab Continue Insulin NPH Hum/Reg Insulin Hm [Novolin 70-30 Flexpen] 40 units SQ BID traZODone HCL [Desyrel] 50 - 100 mg PO HS metFORMIN HCL 500 mg PO BID Escitalopram [Lexapro] 20 mg PO DAILY Atorvastatin [Lipitor] 20 mg PO HS Discontinued amLODIPine [Norvasc] 5 mg PO DAILY Lisinopril-Hctz 20-25 mg [Zestoretic 20-25] 1 tab PO DAILY Discharge Medication List Atorvastatin [Lipitor] 20 mg PO HS 02/25/23 [History] Escitalopram [Lexapro] 20 mg PO DAILY 02/25/23 [History] Insulin NPH Hum/Reg Insulin Hm [Novolin 70-30 Flexpen] 40 units SQ BID 02/25/23 [History] metFORMIN HCL 500 mg PO BID 02/25/23 [History] traZODone HCL [Desyrel] 50 - 100 mg PO HS 02/25/23 [History] amLODIPine [Norvasc] 10 mg PO DAILY #90 tab 03/05/23 [Rx] cefTRIAXone [Rocephin] 2 gm IVPB Q24H #1 ml 03/05/23 [Rx] hydroCHLOROthiazide [Hydrodiuril] 50 mg PO DAILY #90 tab 03/05/23 [Rx] lisinopriL [Zestril] 30 mg PO DAILY #90 tab 03/05/23 [Rx] metroNIDAZOLE [Flagyl] 500 mg PO TID #126 tab 03/05/23 [Rx] Follow up Appointment(s)/Referral(s): Zelda Austin DO [STAFF PHYSICIAN] - 2 Weeks [facility] [NON-STAFF] - 1 Week W[facility] Center,[facility] [NON-STAFF] - 1 Week [facility]idential Home[facility] [NON-STAFF] - 1 Week Gonzalez Whitehead DO [Primary Care Provider] - 1-2 days [facility], [NON-STAFF] - 1 Week Patient Instructions/Handouts: Osteomyelitis (DC) Activity/Diet/Wound Care/Special Instructions: Please see your PCP and vascular surgeon. Discharge Disposition: HOME WITH HOME HEALTH SERVICES
[2023-03-05 13:15] VITALS: BP 175/72; PULSE 56; RESP 18; TEMP 98.2
--- NOTE | 2023-03-05 17:19 | P.PN ---
Subjective Progress Note Date: 03/03/23 Principal diagnosis: R diabetic foot ulcer and leg cellulitis Patient is a 67-year-old male with a past medical history significant for insulin-dependent Beatties mellitus neuropathy hypertension hyperlipidemia presenting to the hospital with a right total lower extremity swelling redness along with fever and chills, patient was diagnosed with right lower extremity ce llulitis, subsequently concern for deep infection Osteomyelitis on the basis of bone scan, the patient is status post amputation of the right big toe completed on 03/03/2023 On today's evaluation that is 03/03/2023,The patient continues to be afebrile, the patient is breathing comfortably on room air, the patient denies any chest pain shortness of breath or cough no abdominal pain patient denies pain to the right big toe amputation site Patient white count 15.64, creatinine 0.96 Objective - Vital Signs Vital signs: Vital Signs Temp 96.8 F L 03/03/23 13:48 Pulse 64 03/03/23 17:12 Resp 19 03/03/23 17:12 BP 189/85 03/03/23 17:12 Pulse Ox 96 03/03/23 17:12 FiO2 Intake & Output 03/02/23 03/03/23 03/03/23 18:59 06:59 18:59 Intake Total 700 225 Output Total 30 Balance 700 195 Intake: IV 225 Intake, IV Titration 700 Amount Ampicillin-Sulbactam 3 gm 200 In Sodium Chloride 0.9% 100 ml @ 200 mls/hr IVPB Q6HR [facility] Rx#:[id number] Vancomycin 2,000 mg In 500 Sodium Chloride 0.9% 500 ml 500 ml @ 167 mls/hr IVPB Q16H [facility] Rx#: [id number] Output: Estimated Blood Loss 30 Other: Voiding Method Toilet Toilet # Voids 3 2 # Bowel Movements 1 - Exam GENERAL DESCRIPTION: Elderly up in the chair in no distress RESPIRATORY SYSTEM: Unlabored breathing , decreased breath sounds at bases HEART: S1 S2 regular rate and rhythm ,no loud murmurs ABDOMEN: Soft , no tenderness EXTREMITIES: Right big toe amputation site is currently dressed - Labs CBC & Chem 7: 03/05/23 06:34 03/05/23 06:34 Labs: Abnormal Lab Results - Last 24 Hours (Table) 03/02/23 03/03/23 03/03/23 Range/Units 20:17 04:20 04:20 WBC 15.64 H (4.50-10.00) X 10*3/uL RBC 3.39 L (4.40-5.60) X 10*6/uL Hgb 10.0 L (13.0-17.0) d/dL Hct 31.4 L (39.6-50.0) % MCHC 31.8 L (32.0-37.0) d/dL Neutrophils # 11.54 H (1.80-7.70) X 10*3/uL Monocytes # 1.25 H (0.20-1.00) X 10*3/uL POC Glucose (mg/dL) 207 H (70-110) mg/dL Calcium 8.4 L (8.7-10.3) mg/dL 03/03/23 Range/Units 12:34 WBC (4.50-10.00) X 10*3/uL RBC (4.40-5.60) X 10*6/uL Hgb (13.0-17.0) d/dL Hct (39.6-50.0) % MCHC (32.0-37.0) d/dL Neutrophils # (1.80-7.70) X 10*3/uL Monocytes # (0.20-1.00) X 10*3/uL POC Glucose (mg/dL) 67 L (70-110) mg/dL Calcium (8.7-10.3) mg/dL Microbiology - Last 24 Hours (Table) 03/01/23 11:58 Anaerobic Culture - Preliminary Foot - Right 02/27/23 10:54 Anaerobic Culture - Preliminary Foot - Right Anaerobic Gm Negative Bacilli 03/01/23 11:58 Gram Stain - Final Foot - Right Wound Culture - Final Beta Hemolytic Strep Group G 02/27/23 10:54 Gram Stain - Final Foot - Right Wound Culture - Final Beta Hemolytic Strep Group G 02/25/23 13:55 Blood Culture - Final Blood 02/25/23 13:40 Blood Culture - Final Blood Assessment and Plan (1) Cellulitis of right leg Current Visit: Yes Status: Acute Code(s): L03.115 - CELLULITIS OF RIGHT LOWER LIMB SNOMED Code(s): 854713587 (2) Diabetic ulcer of lower extremity Current Visit: Yes Status: Acute Code(s): E11.622 - TYPE 2 DIABETES MELLITUS WITH OTHER SKIN ULCER SNOMED Code(s): 174087877 (3) Infected wound Current Visit: Yes Status: Acute Code(s): T14.8 - OTHER INJURY OF UNSPECIFIED BODY REGION * DO NOT USE * SNOMED Code(s): 65355026 Plan: 1patient was in the hospital with sepsis in this patient with a fever elevated white count source right lower extremity cellulitis in this patient did have some superficial ulcerations but no purulent drainage was noticed with rapid progression of cellulitis possible streptococcal disease 2-patient right big toe Osteomyelitis , the patient is status post amputation of right big toe by vascular surgery on 03/03/2023, no deep culture were done 4-patient to continue with Unasyn and vancomycin while waiting for the culture finalized to determine his discharge antibiotics Dictation was produced using [employer] dictation software. please excuse any grammatical, word or spelling errors. Time with Patient: Less than 30
--- NOTE | 2023-03-05 17:21 | P.PN ---
Subjective Progress Note Date: 03/04/23 Principal diagnosis: R diabetic foot ulcer and leg cellulitis Patient is a 67-year-old male with a past medical history significant for insulin-dependent Beatties mellitus neuropathy hypertension hyperlipidemia presenting to the hospital with a right total lower extremity swelling redness along with fever and chills, patient was diagnosed with right lower extremity ce llulitis, subsequently concern for deep infection Osteomyelitis on the basis of bone scan, the patient is status post amputation of the right big toe completed on 03/03/2023 On today's evaluation that is 03/04/2023,The patient remains to be afebrile, the patient is breathing comfortably on room air, the patient denies any chest pain shortness of breath or cough, the patient denies any nausea and vomiting no abdominal pain patient denies pain to the right big toe amputation site Patient white count is slightly up to 18.41 today, creatinine is 1.1 Objective - Vital Signs Vital signs: Vital Signs Temp 97.4 F L 03/04/23 12:21 Pulse 63 03/04/23 12:21 Resp 16 03/04/23 12:21 BP 180/76 03/04/23 12:21 Pulse Ox 97 03/04/23 12:21 FiO2 Intake & Output 03/03/23 03/04/23 03/04/23 18:59 06:59 18:59 Intake Total 225 500 Output Total 30 Balance 195 500 Intake: IV 225 Oral 500 Output: Estimated Blood Loss 30 Other: Voiding Method Toilet Toilet Toilet # Voids 1 3 - Exam GENERAL DESCRIPTION: Elderly up in the chair in no distress RESPIRATORY SYSTEM: Unlabored breathing , decreased breath sounds at bases HEART: S1 S2 regular rate and rhythm ,no loud murmurs ABDOMEN: Soft , no tenderness EXTREMITIES: Right big toe amputation site is currently dressed - Labs CBC & Chem 7: 03/05/23 06:34 03/05/23 06:34 Labs: Abnormal Lab Results - Last 24 Hours (Table) 03/03/23 03/03/23 03/04/23 Range/Units 17:22 20:44 07:47 POC Glucose (mg/dL) 116 H 278 H 123 H (70-110) mg/dL 03/04/23 Range/Units 12:22 POC Glucose (mg/dL) 202 H (70-110) mg/dL Microbiology - Last 24 Hours (Table) 02/27/23 10:54 Anaerobic Culture - Final Foot - Right Anaerobic Gm Negative Bacilli 03/01/23 11:58 Anaerobic Culture - Preliminary Foot - Right 03/01/23 11:58 Gram Stain - Final Foot - Right Wound Culture - Final Beta Hemolytic Strep Group G Assessment and Plan (1) Cellulitis of right leg Current Visit: Yes Status: Acute Code(s): L03.115 - CELLULITIS OF RIGHT LOWER LIMB SNOMED Code(s): 245382243 (2) Diabetic ulcer of lower extremity Current Visit: Yes Status: Acute Code(s): E11.622 - TYPE 2 DIABETES MELLITUS WITH OTHER SKIN ULCER SNOMED Code(s): 155275035 (3) Infected wound Current Visit: Yes Status: Acute Code(s): T14.8 - OTHER INJURY OF UNSPECIFIED BODY REGION * DO NOT USE * SNOMED Code(s): 11956629 Plan: 1patient was in the hospital with sepsis in this patient with a fever elevated white count source right lower extremity cellulitis in this patient did have some superficial ulcerations but no purulent drainage was noticed with rapid progression of cellulitis possible streptococcal disease 2-patient right big toe Osteomyelitis , the patient is status post amputation of right big toe by vascular surgery on 03/03/2023, no deep culture were done, ini tial culture did grow group C strep and anaerobes 4-patient to continue with Unasyn however discontinued vancomycin as no MRSA has been grown Dictation was produced using [employer] dictation software. please excuse any grammatical, word or spelling errors. Time with Patient: Less than 30
--- NOTE | 2023-03-05 17:22 | P.PN ---
Subjective Progress Note Date: 03/05/23 Principal diagnosis: R diabetic foot ulcer and leg cellulitis Patient is a 67-year-old male with a past medical history significant for insulin-dependent Beatties mellitus neuropathy hypertension hyperlipidemia presenting to the hospital with a right total lower extremity swelling redness along with fever and chills, patient was diagnosed with right lower extremity ce llulitis, subsequently concern for deep infection Osteomyelitis on the basis of bone scan, the patient is status post amputation of the right big toe completed on 03/03/2023 On today's evaluation that is 03/05/2023,The patient denies any fever or any chills, the patient is breathing comfortably on room air, the patient denies any chest pain shortness of breath or cough, the patient denies any nausea and vomiting no abdominal pain patient denies pain to the right big toe amputation site, feeling better wants to go home Patient white count is down to 13.4 today, creatinine is 1.15, local culture with beta-hemolytic group G strep and anaerobes Objective - Vital Signs Vital signs: Vital Signs Temp 98.2 F 03/05/23 12:52 Pulse 56 L 03/05/23 12:52 Resp 18 03/05/23 12:52 BP 175/72 03/05/23 12:52 Pulse Ox 99 03/05/23 12:52 FiO2 Intake & Output 03/04/23 03/05/23 03/05/23 18:59 06:59 18:59 Weight 131.088 kg Other: Voiding Method Toilet Toilet Toilet # Voids 1 - Exam GENERAL DESCRIPTION: Elderly up in the chair in no distress RESPIRATORY SYSTEM: Unlabored breathing , decreased breath sounds at bases HEART: S1 S2 regular rate and rhythm ,no loud murmurs ABDOMEN: Soft , no tenderness EXTREMITIES: Right big toe amputation site is currently dressed - Labs CBC & Chem 7: 03/05/23 06:34 03/05/23 06:34 Labs: Abnormal Lab Results - Last 24 Hours (Table) 03/04/23 03/04/23 03/04/23 Range/Units 06:21 17:06 20:30 WBC (3.8-10.6) k/uL RBC (4.30-5.90) m/uL Hgb (13.0-17.5) gm/dL Hct (39.0-53.0) % Neutrophils # (1.3-7.7) k/uL Monocytes # (0-1.0) k/uL Glucose 145 H (70-110) mg/dL POC Glucose (mg/dL) 127 H 195 H (70-110) mg/dL Calcium 8.5 L (8.7-10.3) mg/dL 03/05/23 03/05/23 03/05/23 Range/Units 06:34 06:34 11:41 WBC 13.4 H (3.8-10.6) k/uL RBC 3.45 L (4.30-5.90) m/uL Hgb 10.2 L (13.0-17.5) gm/dL Hct 31.5 L (39.0-53.0) % Neutrophils # 10.0 H (1.3-7.7) k/uL Monocytes # 1.2 H (0-1.0) k/uL Glucose 72 L (70-110) mg/dL POC Glucose (mg/dL) 163 H (70-110) mg/dL Calcium 8.1 L (8.7-10.3) mg/dL Microbiology - Last 24 Hours (Table) 02/27/23 10:54 Anaerobic Culture - Final Foot - Right Anaerobic Gm Negative Bacilli Assessment and Plan (1) Cellulitis of right leg Current Visit: Yes Status: Acute Code(s): L03.115 - CELLULITIS OF RIGHT LOWER LIMB SNOMED Code(s): 651545791 (2) Diabetic ulcer of lower extremity Current Visit: Yes Status: Acute Code(s): E11.622 - TYPE 2 DIABETES MELLITUS WITH OTHER SKIN ULCER SNOMED Code(s): 585858539 (3) Infected wound Current Visit: Yes Status: Acute Code(s): T14.8 - OTHER INJURY OF UNSPECIFIED BODY REGION * DO NOT USE * SNOMED Code(s): 30110093 Plan: 1patient was in the hospital with sepsis in this patient with a fever elevated white count source right lower extremity cellulitis in this patient did have some superficial ulcerations but no purulent drainage was noticed with rapid progression of cellulitis possible streptococcal disease 2-patient right big toe Osteomyelitis , the patient is status post amputation of right big toe by vascular surgery on 03/03/2023, no deep culture were done, initial culture did grow group G strep and anaerobes 3patient did get a PICC line for outpatient IV antibiotics which will be switched over to Rocephin 2 g daily along with oral Flagyl weekly monitoring of CRP and a sed rate and close outpatient follow-up Dictation was produced using [employer] dictation software. please excuse any grammatical, word or spelling errors. Time with Patient: Less than 30
[2023-03-11 11:21] LABS: Basophils # (A) 0.05 X 10*3/uL (0.00-0.10); Eosinophils # (A) 0.12 X 10*3/uL (0.04-0.35); Lymphocytes # (A) 1.51 X 10*3/uL (0.90-5.00); Monocytes # (A) 1.91 X 10*3/uL (0.20-1.00); Neutrophils # (A) 13.66 X 10*3/uL (1.80-7.70)
== END 2023-03-05 18:12 | disposition home health service (06) | DRG 854 ==
LOC: EC 12:06 → 4SSUR 17:40 → 5NMEDONC 03-01 18:43
PROVIDERS: ADMIT Internal Medicine; ATTEND Internal Medicine
PROC: 0Y6M0Z9 Detachment at Right Foot, Partial 1st Ray, Open Approach (ICD-10-PCS; principal; 2023-03-03 07:30)
PROC: 0QBL0ZZ Excision of Right Tarsal, Open Approach (ICD-10-PCS; principal; 2023-03-03 07:30)
PROC: 02HV33Z Insertion of Infusion Device into Superior Vena Cava, Percutaneous Approach (ICD-10-PCS; 2023-03-05)
DX: A40.8 Other streptococcal sepsis (principal); E11.52 Type 2 diabetes mellitus with diabetic peripheral angiopathy with gangrene; M86.8X7 Other osteomyelitis, ankle and foot; N17.9 Acute kidney failure, unspecified; L03.115 Cellulitis of right lower limb; E87.1 Hypo-osmolality and hyponatremia; Z68.41 Body mass index [BMI] 40.0-44.9, adult; I96 Gangrene, not elsewhere classified; L97.414 Non-pressure chronic ulcer of right heel and midfoot with necrosis of bone; E11.69 Type 2 diabetes mellitus with other specified complication; E11.65 Type 2 diabetes mellitus with hyperglycemia; I10 Essential (primary) hypertension; E78.5 Hyperlipidemia, unspecified; E11.628 Type 2 diabetes mellitus with other skin complications; M19.90 Unspecified osteoarthritis, unspecified site; S90.822A Blister (nonthermal), left foot, initial encounter; I87.8 Other specified disorders of veins; E66.01 Morbid (severe) obesity due to excess calories; E11.42 Type 2 diabetes mellitus with diabetic polyneuropathy; E11.621 Type 2 diabetes mellitus with foot ulcer; Z79.4 Long term (current) use of insulin; Z79.84 Long term (current) use of oral hypoglycemic drugs; Z79.899 Other long term (current) drug therapy
CPT/HCPCS: 36415; 36573; 78315; 80048; 80053; 80202; 82565; 83605; 83735; 84100; 85025; 85027; 85652; 86140; 87040; 87070; 87075; 87205; 93005; 96361; 96365; 96366; 96367; 99285

== ENCOUNTER 2023-11-10 18:47 | Inpatient (IN) | payer MEDICARE ==
[2023-11-10] MEDS: SODIUM CHLORIDE 0.9% 1,000 ML IV ONE (19:50)
[2023-11-10] MEDS: ACETAMINOPHEN TAB 325 MG TAB PO STA (19:51)
[2023-11-10] MEDS: IBUPROFEN 800 MG TAB PO STA (19:52)
--- NOTE | 2023-11-10 19:55 | ED ---
General Adult HPI - General Chief complaint: Skin/Abscess/Foreign Body Stated complaint: Ulcer on R foot, fever Time Seen by Provider: 11/10/23 19:12 Source: patient Mode of arrival: ambulatory Limitations: no limitations - History of Present Illness Initial comments: 68-year-old male presenting with chief complaint of fever and ulcer to the right foot. Patient is a type II diabetic with neuropathy. States that today he began having a fever and noticed that his right lower extremity was red and swollen. He was seen at urgent care and advised to report to the ER. Patient is having no pain due to his neuropathy. History of a right-sided first digit amputation. In addition to ulceration to the plantar surface of the foot and erythema spreading up the leg, patient also has an area of fluctuance to the anterior portion of the lower leg near the proximal one third. - Related Data Home Medications Medication Instructions Recorded Confirmed Atorvastatin [Lipitor] 20 mg PO HS 02/25/23 02/25/23 Escitalopram [Lexapro] 20 mg PO DAILY 02/25/23 02/25/23 Insulin NPH Hum/Reg Insulin Hm 40 units SQ BID 02/25/23 02/25/23 [NovoLIN 70-30 Flexpen] metFORMIN HCL 500 mg PO BID 02/25/23 02/25/23 traZODone HCL [Desyrel] 50 - 100 mg PO HS 02/25/23 02/25/23 Previous Rx's Medication Instructions Recorded amLODIPine [Norvasc] 10 mg PO DAILY #90 tab 03/05/23 cefTRIAXone [Rocephin] 2 gm IVPB Q24H #1 ml 03/05/23 hydroCHLOROthiazide [Hydrodiuril] 50 mg PO DAILY #90 tab 03/05/23 lisinopriL [Zestril] 30 mg PO DAILY #90 tab 03/05/23 metroNIDAZOLE [Flagyl] 500 mg PO TID #126 tab 03/05/23 Allergies Allergy/AdvReac Type Severity Reaction Status Date / Time No Known Allergies Allergy Verified 11/10/23 18:52 Review of Systems ROS Statement: Those systems with pertinent positive or pertinent negative responses have been documented in the HPI. ROS Other: All systems not noted in ROS Statement are negative. Past Medical History Past Medical History: Diabetes Mellitus, Hyperlipidemia, Hypertension Additional Past Medical History / Comment(s): POOR CIRCULATION RT LEG. RT ANKLE WOUND History of Any Multi-Drug Resistant Organisms: None Reported Past Surgical History: Adenoidectomy, Orthopedic Surgery, Tonsillectomy Additional Past Surgical History / Comment(s): RECENT WOUND CENTER FOR RT ANKLE WOUND, NOW DISCHARGED, GANGLION CYST REMOVED LT WRIST, MASS REMOVED FROM RT INNER THIGH/GROIN. IVAN CATARACT LENS IMPLANTS. Past Anesthesia/Blood Transfusion Reactions: No Reported Reaction Past Psychological History: No Psychological Hx Reported Smoking Status: Never smoker Past Alcohol Use History: Occasional Past Drug Use History: None Reported - Past Family History Mother Family Medical History: Renal Disease Father Family Medical History: Diabetes Mellitus Additional Family Medical History / Comment(s): AGE 66 General Exam Limitations: no limitations General appearance: alert, in no apparent distress Head exam: Present: atraumatic, normocephalic Eye exam: Present: normal appearance, EOMI Neck exam: Present: normal inspection. Absent: meningismus Respiratory exam: Present: normal lung sounds bilaterally. Absent: respiratory distress, wheezes, rales, rhonchi, stridor Cardiovascular Exam: Present: regular rate, normal rhythm, normal heart sounds. Absent: systolic murmur, diastolic murmur, rubs, gallop, clicks Right Lower Leg exam: Present: swelling, erythema Foot/Toe exam: Present: swelling, erythema, amputation (1st digit). Absent: normal inspection Neurological exam: Present: alert, oriented X3 Psychiatric exam: Present: normal affect, normal mood Course Vital Signs 11/10/23 11/10/23 11/10/23 18:50 19:57 22:08 Temperature 99.0 F Pulse Rate 101 H 92 94 Respiratory 20 16 18 Rate Blood Pressure 186/73 181/76 136/66 O2 Sat by Pulse 97 95 95 Oximetry Medical Decision Making - Medical Decision Making Was pt. sent in by a medical professional or institution (, PA, FUNDS DEVELOPMENT DIRECTOR, urgent care, hospital, or prison...) When possible be specific @ -No Did you speak to anyone other than the patient for history (EMS, parent, family, police, friend...)? What history was obtained from this source @ -No Did you review nursing and triage notes (agree or disagree)? Why? @ -I reviewed and agree with nursing and triage notes Were old charts reviewed (outside hosp., previous admission, EMS record, old EKG, old radiological studies, urgent care reports/EKG's, prison records)? Report findings @ -No old charts were reviewed Differential Diagnosis (chest pain, altered mental status, abdominal pain women, abdominal pain men, vaginal bleeding, weakness, fever, dyspnea, syncope, headache, dizziness, GI bleed, back pain, seizure, CVA, palpatations, mental health, musculoskeletal)? @ - [facility] Differential Fever: Pneumonia, viral URI, endocarditis, myocarditis, pericarditis, otitis, sinusitis, peritonsillar Abscess, retropharyngeal Abscess, epiglottitis, peritonitis, appendicitis, Angélica cystitis, diverticulitis, hepatitis, colitis, UTI, PID, TOA, pyelonephritis, prostatitis, epididymitis, meningitis, encephalitis, pulmonary embolism, CVA, thyroid storm, pancreatitis, adrenal crisis, cavernous sinus thrombosis this is not meant to be an all-inclusive list. EKG interpreted by me (3pts min.). @ -As above X-rays interpreted by me (1pt min.). @ -X-ray shows probable transmetatarsal amputation at the mid great toe metatarsal shaft with chronic appearing osseous bruise and periosteal new bone formation about the truncated first metatarsal. No clear evidence of acute destruction to suggest osteomyelitis. Soft tissue swelling and possibly a small focus of gas distally which may suggest an ulcer along the plantar surface of the distal foot CT interpreted by me (1pt min.). @ -None done U/S interpreted by me (1pt. min.). @ -Ultrasound shows large vessel in the area of patient's reported fluctuant mass in the medial calf. No spectral waveforms were taken of this vessel to unclear if this is a arterial or venous vascular structure What testing was considered but not performed or refused? (CT, X-rays, U/S, labs)? Why? @ -None What meds were considered but not given or refused? Why? @ -None Did you discuss the management of the patient with other professionals (professionals i.e. , PA, FUNDS DEVELOPMENT DIRECTOR, lab, RT, psych nurse, social professionals, concrete pourer, teacher, enforcement safety officer, child support case officer)? Give summary @ -I spoke with Dr. Ward who accepted admission Was smoking cessation discussed for >3mins.? @ -No Was critical care preformed (if so, how long)? @ -No Were there social determinants of health that impacted care today? How? (Homelessness, low income, unemployed, alcoholism, drug addiction, transportat ion, low edu. Level, literacy, decrease access to med. care, longterm, rehab)? @ -No Was there de-escalation of care discussed even if they declined (Discuss DNR or withdrawal of care, Hospice)? DNR status @ -No What co-morbidities impacted this encounter? (DM, HTN, Smoking, COPD, CAD, Cancer, CVA, ARF, Chemo, Hep., AIDS, mental health diagnosis, sleep apnea, morbid obesity)? @ -Diabetes Was patient admitted / discharged? Hospital course, mention meds given and route, prescriptions, significant lab abnormalities, going to OR and other pertinent info. @ -68-year-old male presenting with chief complaint of fever as well and ulceration to the right foot and ascending redness. History and physical exam are conducted. There is an area of fluctuance noted to the anterior portion of the lower leg. Ultrasound was obtained which shows a large vessel in this area. This mass is not pulsatile by any means, does not appear clinically consistent with large arterial vessel. WBC 24. Lactic acid 2.7. X-ray shows no evidence of acute bony destruction to suggest osteomyelitis. Patient is started on vancomycin and Unasyn after blood cultures are drawn. Infectious disease and vascular surgery are consulted. Patient is given 1 L fluid bolus and started on maintenance rate of 150 mL/h. He will be admitted he is agreeable with this plan. I discussed this case with my attending Dr. Angulo Undiagnosed new problem with uncertain prognosis? @ -No Drug Therapy requiring intensive monitoring for toxicity (Heparin, Nitro, Insulin, Cardizem)? @ -No Were any procedures done? @ -No Diagnosis/symptom? @ -Diabetic foot infection, cellulitis Acute, or Chronic, or Acute on Chronic? @ -Acute Uncomplicated (without systemic symptoms) or Complicated (systemic symptoms)? @ -Complicated Side effects of treatment? @ -No Exacerbation, Progression, or Severe Exacerbation? @ -No Poses a threat to life or bodily function? How? (Chest pain, [place], [place], pneumonia, PE, COPD, DKA, ARF, appy, cholecystitis, CVA, Diverticulitis, Homicidal, Suicidal, threat to staff... and all critical care pts) @ -Yes - Lab Data Result diagrams: 11/10/23 19:53 11/10/23 19:53 Lab Results 11/10/23 11/10/23 11/10/23 Range/Units 19:53 19:53 19:53 WBC 24.0 H (3.8-10.6) k/uL RBC 4.34 (4.30-5.90) m/uL Hgb 13.1 (13.0-17.5) gm/dL Hct 40.3 (39.0-53.0) % MCV 92.9 (80.0-100.0) fL MCH 30.1 (25.0-35.0) pg MCHC 32.4 (31.0-37.0) g/dL RDW 13.5 (11.5-15.5) % Plt Count 148 L (150-450) k/uL MPV 9.3 Neutrophils % 92 % Lymphocytes % 3 % Monocytes % 4 % Eosinophils % 1 % Basophils % 0 % Neutrophils # 22.0 H (1.3-7.7) k/uL Lymphocytes # 0.8 L (1.0-4.8) k/uL Monocytes # 0.8 (0-1.0) k/uL Eosinophils # 0.2 (0-0.7) k/uL Basophils # 0.1 (0-0.2) k/uL Sodium 133 L (137-145) mmol/L Potassium 4.5 (3.5-5.1) mmol/L Chloride 98 (98-107) mmol/L Carbon Dioxide 26 (22-30) mmol/L Anion Gap 9 mmol/L BUN 21 H (9-20) mg/dL Creatinine 1.01 (0.66-1.25) mg/dL Est GFR (CKD-EPI)AfAm 89 (>60 ml/min/1.73 sqM) Est GFR (CKD-EPI)NonAf 77 (>60 ml/min/1.73 sqM) Glucose 238 H (74-99) mg/dL Lactic Ac Sepsis Rflx Plasma Lactic Acid Francisco 2.7 H* (0.7-2.0) mmol/L Calcium 8.8 (8.4-10.2) mg/dL Total Bilirubin 0.9 (0.2-1.3) mg/dL AST 28 (17-59) U/L ALT 28 (4-49) U/L Alkaline Phosphatase 87 (38-126) U/L Total Protein 7.2 (6.3-8.2) g/dL Albumin 3.9 (3.5-5.0) g/dL 11/10/23 Range/Units 20:13 WBC (3.8-10.6) k/uL RBC (4.30-5.90) m/uL Hgb (13.0-17.5) gm/dL Hct (39.0-53.0) % MCV (80.0-100.0) fL MCH (25.0-35.0) pg MCHC (31.0-37.0) g/dL RDW (11.5-15.5) % Plt Count (150-450) k/uL MPV Neutrophils % % Lymphocytes % % Monocytes % % Eosinophils % % Basophils % % Neutrophils # (1.3-7.7) k/uL Lymphocytes # (1.0-4.8) k/uL Monocytes # (0-1.0) k/uL Eosinophils # (0-0.7) k/uL Basophils # (0-0.2) k/uL Sodium (137-145) mmol/L Potassium (3.5-5.1) mmol/L Chloride (98-107) mmol/L Carbon Dioxide (22-30) mmol/L Anion Gap mmol/L BUN (9-20) mg/dL Creatinine (0.66-1.25) mg/dL Est GFR (CKD-EPI)AfAm (>60 ml/min/1.73 sqM) Est GFR (CKD-EPI)NonAf (>60 ml/min/1.73 sqM) Glucose (74-99) mg/dL Lactic Ac Sepsis Rflx Y Plasma Lactic Acid Francisco (0.7-2.0) mmol/L Calcium (8.4-10.2) mg/dL Total Bilirubin (0.2-1.3) mg/dL AST (17-59) U/L ALT (4-49) U/L Alkaline Phosphatase (38-126) U/L Total Protein (6.3-8.2) g/dL Albumin (3.5-5.0) g/dL Disposition Clinical Impression: Type 2 diabetes mellitus with foot ulcer, Cellulitis of right leg, Right foot ulcer Disposition: ADMITTED IP TO THIS HOSP Condition: Serious Time of Disposition: :18
[2023-11-10 20:00] LABS: Basophils # (A) 0.1 k/uL (0-0.2); Basophils % (A) 0 %; Eosinophils # (A) 0.2 k/uL (0-0.7); Eosinophils % (A) 1 %; HCT 40.3 % (39.0-53.0); HGB 13.1 gm/dL (13.0-17.5); Lymphocytes # (A) 0.8 k/uL (1.0-4.8); Lymphocytes % (A) 3 %; MCH 30.1 pg (25.0-35.0); MCHC 32.4 g/dL (31.0-37.0); MCV 92.9 fL (80.0-100.0); Mean Platelet Volume 9.3; Monocytes # (A) 0.8 k/uL (0-1.0); Monocytes % (A) 4 %; Neutrophils % (A) 92 %; Platelet Count 148 k/uL (150-450); RBC 4.34 m/uL (4.30-5.90); RDW 13.5 % (11.5-15.5)
[2023-11-10 20:09] LABS: ALT 28 U/L (4-49); AST 28 U/L (17-59); African American GFR (CKD) 89 (>60 ml/min/1.73 sqM); Albumin 3.9 g/dL (3.5-5.0); Alkaline Phosphatase 87 U/L (38-126); Anion Gap 9 mmol/L; Blood Urea Nitrogen 21 mg/dL (9-20); Calcium 8.8 mg/dL (8.4-10.2); Carbon Dioxide 26 mmol/L (22-30); Chloride 98 mmol/L (98-107); Glucose 238 mg/dL (74-99); Non-African American GFR(CKD) 77 (>60 ml/min/1.73 sqM); Potassium 4.5 mmol/L (3.5-5.1); Sodium 133 mmol/L (137-145); Total Bilirubin 0.9 mg/dL (0.2-1.3); Total Protein 7.2 g/dL (6.3-8.2)
--- NOTE | 2023-11-10 20:24 | XR ---
EXAMINATION TYPE: XR foot complete RT DATE OF EXAM: 11/10/2023 7:46 PM CLINICAL INDICATION:Male, 68 years old with history of infected ulcer; [facility] COMPARISON: X-rays 02/25/2023 TECHNIQUE: 3 views right foot. FINDINGS: Since the prior study, there is now absence of the first ray beyond the mid metatarsal shaft, this is likely post surgical, possibly destructive. There are some rather well corticated osseous spurs and periosteal new bone formation about the truncated first metatarsal, without clear evidence of acute d estruction to suggest osteomyelitis. There is soft tissue swelling and possibly a small focus of gas distally which may suggest an ulcer. This is seen along the plantar surface of the distal foot. There are hammertoe type deformities of the other digits, particularly the second and third toes, and ther e is significant subluxation seen at the second and third toe metatarsophalangeal joints. No acute fr acture, dislocation, or other acute osseous abnormality. Small to moderate dorsal and moderate planta r calcaneal spurs. There are mild degenerative changes throughout the midfoot. There are vascular calcifications in the distal leg. Mild soft tissue swelling suggested, greatest in the distal foot. IMPRESSION: 1. Probable transmetatarsal amputation at the mid great toe metatarsal shaft, with chronic appearing osseous spurs and periosteal new bone formation about the truncated first metatarsal. 2. No clear evidence of acute destruction to suggest osteomyelitis. 3. Soft tissue swelling and possibly a small focus of gas distally which may suggest an ulcer along the plantar surface of the distal foot.
--- NOTE | 2023-11-10 20:34 | US ---
EXAMINATION TYPE: US extremity nonvasc mass RT DATE OF EXAM: 11/10/2023 COMPARISON: NONE CLINICAL INDICATION: Male, 68 years old with history of fluctuant mass RLE; PA felt a lump in right a nterior medial calf. TECHNIQUE: Area of lump scanned in right calf FINDINGS: Edema noted in calf. There is a large vessel seen in the area of lump. This vessel does co mpress and has blood flow. IMPRESSION: Large vessel in the area of patient's reported fluctuant mass in the medial calf. No spec tral waveforms were taken of this vessel to unclear if this is a arterial or venous vascular structur e.
[2023-11-10] MEDS ORDERED: VANCOMYCIN IV PER PHARMACY 1 EACH MISC MISCELLANE PRN (20:40)
[2023-11-10] MEDS: AMPICILLIN-SULBACTAM 3 GM in SODIUM CHLORIDE 0.9% 100 ML IVPB STA (21:00)
[2023-11-10] MEDS ORDERED: VANCOMYCIN 2,250 MG in SODIUM CHLORIDE 0.9% 500 ML 500 ML IVPB ONE (21:00)
[2023-11-10] MEDS: SODIUM CHLORIDE 0.9% 1,000 ML IV SCH (21:01)
[2023-11-10] MEDS: amLODIPine 10 MG TAB PO STA (21:04)
[2023-11-10] MEDS: lisinopriL 10 MG TAB PO STA (21:04)
[2023-11-10] MEDS ORDERED: NALOXONE 0.4 MG/ML 1 ML VIAL IV PRN (21:14)
[2023-11-10] MEDS ORDERED: MORPHINE SULFATE 4 MG/ML SYRINGE IV PRN (21:14)
[2023-11-10] MEDS ORDERED: IBUPROFEN 400 MG TAB PO PRN (21:14)
[2023-11-10] MEDS: VANCOMYCIN 2,000 MG in SODIUM CHLORIDE 0.9% 500 ML 500 ML IVPB ONE (21:49)
--- NOTE | 2023-11-11 00:36 | P.HPIM ---
History of Present Illness H&P Date: 11/10/23 Patient is a 68-year-old male with a PMH of type II DM complicated by peripheral neuropathy status post RLE osteomyelitis and right first toe amputation, hypertension, and hyperlipidemia who presents to the emergency room due to right lower extremity ulcer with erythema. Patient notes he initially noticed the ulcer on his right plantar surface 3 to 4 days ago which initially had a blister on it that drained. It subsequently developed redness that extended up towards his knee. Throughout the day today, the patient felt somewhat unwell and had some nausea with a single episode of nonbloody emesis which prompted him to come to the emergency room. Denies experiencing chest discomfort, shortness of breath, abdominal pain, or diarrhea. Right lower extremity ultrasound in the emergency room revealed a vascular fluctuant mass in the medial calf with blood flow and compressible. A right foot x-ray revealed no acute findings consistent with osteomyelitis with some soft tissue swelling and other findings consistent with an ulcer. Laboratory evaluation was remarkable for leukocytosis of 24.0, platelet count 148, lactic acid 2.7, glucose 238, sodium 133, and BUN 21. ED documentation reviewed and case discussed with ED provider. Review of systems: Pertinent positives and negatives as discussed in HPI, a complete review of systems was performed and all other systems are negative. Physical examination: Vital signs reviewed General: non toxic, no distress, appears at stated age, morbidly obese Derm: R foot plantar surface unstageable ulcer noted with surrounding erythema and warmth with extension up towards the knee, warm Head: atraumatic, normocephalic, symmetric Eyes: EOMI, no lid lag, anicteric sclera, pupils equal round reactive to light ENT: Nose and ears atraumatic Neck: No cervical lymphadenopathy, trachea midline, supple Mouth: no lip lesion, mucus membranes moist Cardiovascular: S1S2 reg, no murmur, positive dorsalis pedis pulse bilateral, no edema Lungs: CTA bilateral, no rhonchi, no rales, no accessory muscle use Abdominal: soft, nontender to palpation, no guarding Ext: muscle strength 5 out of 5 in all 4 extremities grossly, no gross muscle atrophy, no contractures, Neuro: CN II-XI grossly intact, no gross focal neuro deficits Psych: Alert, oriented, appropriate affect Assessment: Right lower extremity diabetic ulcer with cellulitis Lactic acidosis Thrombocytopenia, suspect may be due to ongoing infection Chronic conditions: Type II DM, hypertension, hyperlipidemia Imaging: Right lower extremity ultrasound in the emergency room revealed a vascular fluctuant mass in the medial calf with blood flow and compressible. A right foot x-ray revealed no acute findings consistent with osteomyelitis with some soft tissue swelling and other findings consistent with an ulcer. Data Review: Laboratory evaluation was remarkable for leukocytosis of 24.0, platelet count 148, lactic acid 2.7, glucose 238, sodium 133, and BUN 21. Plan: Continue with broad-spectrum antibiotic coverage with Unasyn and vancomycin Continue pain control with morphine 4 mg IV every 4 hours as needed Continue with IV fluids with normal saline 130 cc/h Insulin sliding scale and blood glucose monitoring Infectious disease and vascular surgery consulted Follow-up wound and blood cultures Resume home medications once reconciled Monitor CBC Affected area marked DVT prophylaxis: Lovenox subcu The patient is admitted with an anticipated greater than than 2 midnight stay for evaluation of right lower extremity cellulitis CODE STATUS: Full Code Discussed with: Patient Anticipated discharge place: Home Past Medical History Past Medical History: Diabetes Mellitus, Hyperlipidemia, Hypertension Additional Past Medical History / Comment(s): POOR CIRCULATION RT LEG. RT ANKLE WOUND History of Any Multi-Drug Resistant Organisms: None Reported Past Surgical History: Adenoidectomy, Orthopedic Surgery, Tonsillectomy Additional Past Surgical History / Comment(s): RECENT WOUND CENTER FOR RT ANKLE WOUND, NOW DISCHARGED, GANGLION CYST REMOVED LT WRIST, MASS REMOVED FROM RT INNER THIGH/GROIN. IVAN CATARACT LENS IMPLANTS. Past Anesthesia/Blood Transfusion Reactions: No Reported Reaction Past Psychological History: No Psychological Hx Reported Smoking Status: Never smoker Past Alcohol Use History: Occasional Past Drug Use History: None Reported - Past Family History Mother Family Medical History: Renal Disease Father Family Medical History: Diabetes Mellitus Additional Family Medical History / Comment(s): AGE 66 Medications and Allergies Home Medications Medication Instructions Recorded Confirmed Type Atorvastatin [Lipitor] 20 mg PO HS 02/25/23 02/25/23 History Escitalopram [Lexapro] 20 mg PO DAILY 02/25/23 02/25/23 History Insulin NPH Hum/Reg Insulin Hm 40 units SQ BID 02/25/23 02/25/23 History [NovoLIN 70-30 Flexpen] metFORMIN HCL 500 mg PO BID 02/25/23 02/25/23 History traZODone HCL [Desyrel] 50 - 100 mg PO HS 02/25/23 02/25/23 History amLODIPine [Norvasc] 10 mg PO DAILY #90 tab 03/05/23 Rx cefTRIAXone [Rocephin] 2 gm IVPB Q24H #1 ml 03/05/23 Rx hydroCHLOROthiazide [Hydrodiuril] 50 mg PO DAILY #90 tab 03/05/23 Rx lisinopriL [Zestril] 30 mg PO DAILY #90 tab 03/05/23 Rx metroNIDAZOLE [Flagyl] 500 mg PO TID #126 tab 03/05/23 Rx Allergies Allergy/AdvReac Type Severity Reaction Status Date / Time No Known Allergies Allergy Verified 11/10/23 18:52 Physical Exam Vitals: Vital Signs Temp Pulse Resp BP Pulse Ox 11/10/23 22:08 94 18 136/66 95 11/10/23 19:57 92 16 181/76 95 11/10/23 18:50 99.0 F 101 H 20 186/73 97 Intake and Output 11/10/23 11/10/23 11/11/23 14:59 22:59 06:59 Other: Weight 145.15 kg Results CBC & Chem 7: 11/10/23 19:53 11/10/23 19:53 Labs: Abnormal Lab Results - Last 24 Hours (Table) 11/10/23 11/10/23 11/10/23 Range/Units 19:53 19:53 19:53 WBC 24.0 H (3.8-10.6) k/uL Plt Count 148 L (150-450) k/uL Neutrophils # 22.0 H (1.3-7.7) k/uL Lymphocytes # 0.8 L (1.0-4.8) k/uL Sodium 133 L (137-145) mmol/L BUN 21 H (9-20) mg/dL Glucose 238 H (74-99) mg/dL Plasma Lactic Acid Francisco 2.7 H* (0.7-2.0) mmol/L
[2023-11-11] MEDS: AMPICILLIN-SULBACTAM 3 GM in SODIUM CHLORIDE 0.9% 100 ML IVPB SCH (02:36)
[2023-11-11 05:56] LABS: Glucose,Whole Blood 176 mg/dL (70-110)
[2023-11-11 06:23] LABS: HCT 34.6 % (39.0-53.0); HGB 11.6 gm/dL (13.0-17.5); MCH 31.3 pg (25.0-35.0); MCHC 33.4 g/dL (31.0-37.0); MCV 93.6 fL (80.0-100.0); Mean Platelet Volume 10.5; Platelet Count 115 k/uL (150-450); RDW 13.7 % (11.5-15.5)
[2023-11-11] MEDS: INSULIN ASPART (NovoLOG) 100 UNIT/ML VIAL SQ SCH (06:26)
[2023-11-11 06:38] LABS: African American GFR (CKD) >90 (>60 ml/min/1.73 sqM); Anion Gap 4 mmol/L; Blood Urea Nitrogen 24 mg/dL (9-20); Calcium 7.9 mg/dL (8.4-10.2); Carbon Dioxide 25 mmol/L (22-30); Chloride 107 mmol/L (98-107); Glucose 182 mg/dL (74-99); Non-African American GFR(CKD) 86 (>60 ml/min/1.73 sqM); Potassium 4.1 mmol/L (3.5-5.1); Sodium 136 mmol/L (137-145)
[2023-11-11] MEDS: ENOXAPARIN 40 MG/0.4 ML SYRINGE SQ SCH (09:05)
[2023-11-11] MEDS: VANCOMYCIN 2,000 MG in SODIUM CHLORIDE 0.9% 500 ML 500 ML IVPB SCH (09:05)
--- NOTE | 2023-11-11 09:35 | US ---
EXAMINATION TYPE: US venous doppler duplex LE RT DATE OF EXAM: 11/11/2023 8:53 AM COMPARISON: 02/25/2023 CLINICAL INDICATION: Male, 68 years old with history of lower extremity swelling; Hx leg infection. Lower leg redness. No hx DVT. SIDE PERFORMED: Right TECHNIQUE: The lower extremity deep venous system is examined utilizing real time linear array sonog liam with graded compression, doppler sonography and color-flow sonography. VESSELS IMAGED: Common Femoral Vein Deep Femoral Vein Greater Saphenous Vein * Femoral Vein Popliteal Vein Small Saphenous Vein * Proximal Calf Veins (* superficial vessels) Right Leg: Negative for DVT. Prominent lymph nodes seen in right groin. IMPRESSION: Grayscale, color doppler, spectral doppler imaging performed of the deep veins of the lo wer extremities. There is normal flow, compressibility, vascular waveforms.
[2023-11-11 11:49] LABS: Glucose,Whole Blood 216 mg/dL (70-110)
--- NOTE | 2023-11-11 12:20 | P.GSCN ---
History of Present Illness Consult date: 11/11/23 Reason for Consult: Diabetic foot infection Requesting physician: Kem Ortega History of present illness: This is a pleasant 68-year-old male who presented to the emergency department yesterday evening with complaints of fever and chills and a ulcer to the bottom of his right foot. Patient was concerned of possible infection. He is a type II diabetic with peripheral neuropathy. He has a history of previous right great toe amputation done with Dr. Austin. Patient states he does not recall injuring his foot. He has basically no feeling in his feet from the neuropathy. He states that he did have a blister on the bottom of the right foot and it had popped a couple days ago. On admission he had a WBC of 24.0 today leukocytosis is improving white blood cell count is 14. He was started on IV vancomycin and Unasyn. He has been afebrile this admission. He states he has noticed some swelling in that right lower extremity and redness. He denies any shortness of breath, chest pain, abdominal pain, nausea or vomiting. He had an x-ray of the right foot with no evidence to suggest osteomyelitis soft tissue swelling and possibly small focus of gas distally which may suggest an ulcer along the plantar surface of the distal foot. Patient also underwent ultrasound of the lower extremity that reported a large vessel and area of patient's reported fluctuant mass and medial calf. No spectral waveform taken of the vessel unclear if arterial venous vascular structure. Review of Systems A 14 point review systems was completed all pertinent positives and negatives as stated in the HPI. Past Medical History Past Medical History: Diabetes Mellitus, Hyperlipidemia, Hypertension Additional Past Medical History / Comment(s): POOR CIRCULATION RT LEG. RT ANKLE WOUND History of Any Multi-Drug Resistant Organisms: None Reported Past Surgical History: Adenoidectomy, Orthopedic Surgery, Tonsillectomy Additional Past Surgical History / Comment(s): RECENT WOUND CENTER FOR RT ANKLE WOUND, NOW DISCHARGED, GANGLION CYST REMOVED LT WRIST, MASS REMOVED FROM RT INNER THIGH/GROIN. IVAN CATARACT LENS IMPLANTS. Past Anesthesia/Blood Transfusion Reactions: No Reported Reaction Past Psychological History: No Psychological Hx Reported Smoking Status: Never smoker Past Alcohol Use History: Occasional Past Drug Use History: None Reported - Past Family History Mother Family Medical History: Renal Disease Father Family Medical History: Diabetes Mellitus Additional Family Medical History / Comment(s): AGE 66 Medications and Allergies Home Medications Medication Instructions Recorded Confirmed Type Atorvastatin [Lipitor] 20 mg PO HS 02/25/23 11/11/23 History Escitalopram [Lexapro] 20 mg PO DAILY 02/25/23 11/11/23 History Insulin NPH Hum/Reg Insulin Hm 50 units SQ BID 02/25/23 11/11/23 History [NovoLIN 70-30 Flexpen] metFORMIN HCL 500 mg PO BID 02/25/23 11/11/23 History amLODIPine [Norvasc] 5 mg PO DAILY 11/11/23 11/11/23 History lisinopriL [Zestril] 30 mg PO DAILY 11/11/23 11/11/23 History Allergies Allergy/AdvReac Type Severity Reaction Status Date / Time No Known Allergies Allergy Verified 11/11/23 08:27 Surgical - Exam Vital Signs Temp Pulse Resp BP Pulse Ox 99.0 F 101 H 20 186/73 97 11/10/23 18:50 11/10/23 18:50 11/10/23 18:50 11/10/23 18:50 11/10/23 18:50 General appearance: The patient is alert, oriented, appears in no acute distress. HET: Head is normocephalic and atraumatic. Pupils are equal and reactive. Neck: Supple. Heart: Regular. Lungs: Equal expansion, normal respiratory effort. Abdomen: Soft, nontender, nondistended. Extremities: Right lower extremity swelling and erythema. Previous well-healed right great toe amputation site. There is a diabetic ulcer to the plantar aspect of right foot on the medial side of ball of foot. No drainage or redness noted. Neurological: No focal deficits. Decreased sensation to bilateral feet. Results - Labs 11/11/23 06:10 11/11/23 06:10 Abnormal Lab Results - Last 24 Hours (Table) 11/10/23 11/10/23 11/10/23 Range/Units 19:53 19:53 19:53 WBC 24.0 H (3.8-10.6) k/uL RBC (4.30-5.90) m/uL Hgb (13.0-17.5) gm/dL Hct (39.0-53.0) % Plt Count 148 L (150-450) k/uL Neutrophils # 22.0 H (1.3-7.7) k/uL Lymphocytes # 0.8 L (1.0-4.8) k/uL Sodium 133 L (137-145) mmol/L BUN 21 H (9-20) mg/dL Glucose 238 H (74-99) mg/dL POC Glucose (mg/dL) (70-110) mg/dL Plasma Lactic Acid Francisco 2.7 H* (0.7-2.0) mmol/L Calcium (8.4-10.2) mg/dL 11/11/23 11/11/23 11/11/23 Range/Units 05:54 06:10 06:10 WBC 14.0 H (3.8-10.6) k/uL RBC 3.70 L (4.30-5.90) m/uL Hgb 11.6 L (13.0-17.5) gm/dL Hct 34.6 L (39.0-53.0) % Plt Count 115 L (150-450) k/uL Neutrophils # (1.3-7.7) k/uL Lymphocytes # (1.0-4.8) k/uL Sodium 136 L (137-145) mmol/L BUN 24 H (9-20) mg/dL Glucose 182 H (74-99) mg/dL POC Glucose (mg/dL) 176 H (70-110) mg/dL Plasma Lactic Acid Francisco (0.7-2.0) mmol/L Calcium 7.9 L (8.4-10.2) mg/dL Diabetes panel 11/10/23 11/11/23 Range/Units 19:53 06:10 Sodium 133 L 136 L (137-145) mmol/L Potassium 4.5 4.1 (3.5-5.1) mmol/L Chloride 98 107 (98-107) mmol/L Carbon Dioxide 26 25 (22-30) mmol/L BUN 21 H 24 H (9-20) mg/dL Creatinine 1.01 0.92 (0.66-1.25) mg/dL Glucose 238 H 182 H (74-99) mg/dL Calcium 8.8 7.9 L (8.4-10.2) mg/dL AST 28 (17-59) U/L ALT 28 (4-49) U/L Alkaline Phosphatase 87 (38-126) U/L Total Protein 7.2 (6.3-8.2) g/dL Albumin 3.9 (3.5-5.0) g/dL Calcium panel 11/10/23 11/11/23 Range/Units 19:53 06:10 Calcium 8.8 7.9 L (8.4-10.2) mg/dL Albumin 3.9 (3.5-5.0) g/dL Pituitary panel 11/10/23 11/11/23 Range/Units 19:53 06:10 Sodium 133 L 136 L (137-145) mmol/L Potassium 4.5 4.1 (3.5-5.1) mmol/L Chloride 98 107 (98-107) mmol/L Carbon Dioxide 26 25 (22-30) mmol/L BUN 21 H 24 H (9-20) mg/dL Creatinine 1.01 0.92 (0.66-1.25) mg/dL Glucose 238 H 182 H (74-99) mg/dL Calcium 8.8 7.9 L (8.4-10.2) mg/dL Adrenal panel 11/10/23 11/11/23 Range/Units 19:53 06:10 Sodium 133 L 136 L (137-145) mmol/L Potassium 4.5 4.1 (3.5-5.1) mmol/L Chloride 98 107 (98-107) mmol/L Carbon Dioxide 26 25 (22-30) mmol/L BUN 21 H 24 H (9-20) mg/dL Creatinine 1.01 0.92 (0.66-1.25) mg/dL Glucose 238 H 182 H (74-99) mg/dL Calcium 8.8 7.9 L (8.4-10.2) mg/dL Total Bilirubin 0.9 (0.2-1.3) mg/dL AST 28 (17-59) U/L ALT 28 (4-49) U/L Alkaline Phosphatase 87 (38-126) U/L Total Protein 7.2 (6.3-8.2) g/dL Albumin 3.9 (3.5-5.0) g/dL - Imaging Comments: Ultrasound extremity nonvascular right lower extremity reports large vessel in the area of patient's reported fluctuant mass in the medial calf. No spectral w aveforms were taken of this vessel to unclear if this is arterial or venous vascular structure. Right foot x-ray reports probable transmetatarsal amputation at the mid great toe metatarsal shaft with chronic appearing osseous spurs and periosteal new bone formation about the truncated first metatarsal. No clear evidence of acute destruction to suggest osteomyelitis. Soft tissue swelling and possibly a small focus of gas distally which may suggest an ulcer along the plantar surface of the distal foot. Venous duplex reports negative for DVT. Prominent lymph node in the right groin. Assessment and Plan Assessment: 1. Leukocytosis 2. Right foot diabetic ulcer 3. Right lower extremity cellulitis 4. Right groin prominent lymph node 5. Diabetes with diabetic neuropathy 6. Previous right great toe amputation Plan: 1. Continue symptomatic and supportive care 2. Venous duplex of right lower extremity ordered and reviewed 3. CT of right lower extremity ordered 4. Keep patient n.p.o. for now 5. Continue antibiotics per recommendation from infectious disease 6. Further recommendations forthcoming per vascular surgeon Thank you for this consultation, we will continue to follow. The impression and plan of care has been dictated as directed. Dr. Austni I performed a history and examination of this patient, discussed the same with the dictator. I agree with the dictator's note ,documented as a scribe. Any additional findings or plans will be noted. Patient seen and examined. Imaging was reviewed. No abscess pocket. Attempt to shave some callus to evaluate if there is further plantar wound identified. Continue with IV antibiotics.
--- NOTE | 2023-11-11 14:28 | CT ---
EXAMINATION TYPE: CT lower extremity RT w con CT DLP: 416.8 mGycm, Automated exposure control for dose reduction was used. DATE OF EXAM: 11/11/2023 2:20 PM COMPARISON: Ultrasound 11/11/2023 CLINICAL INDICATION:Male, 68 years old with history of wound, leukocytosis, fever, enlarged lymph nod es; PHH, wound, leukocytosis, fever, enlarged lymph nodes TECHNIQUE: Axial images were obtained of the CT lower extremity RT w con, Additional coronal and sagi ttal reformatted images and soft tissue and bone window were obtained for review. Contrast used:100ml mL of Isovue 300 with IV Contrast, (None if empty) Oral contrast used: (None if empty) FINDINGS: Extensive soft tissue swelling most pronounced in the distal right larger May with skin thi ckening and subcutaneous edema. There is large tortuous vessels present which appear patent. This is located in the medial aspect of the thigh skin calcifications are seen throughout the right lower ext remity subcutaneous tissues. The osseous structures appear intact. There is degeneration changes thro ughout the joints of the foot. Calcaneal Achilles enthesophyte formation calcaneal plantar spurring. Accessory ossicle near the navicular bone noted. There is posterior subluxation of the second third m etatarsal phalangeal joints. There is first toe amputation changes. The cortex appears intact. No oss eous erosion definitively visualized. IMPRESSION: 1. Extensive soft tissue swelling throughout the right lower extremity with large tortuous vessels m edially. Skin calcifications and skin thickening also present. There is no organizing fluid collectio n to suggest abscess. Underlying cellulitis remains in the differential. No evidence of fracture. No evidence for osteoporosis erosion to suggest osteomyelitis. 2. Subluxation of the second third digits at the metatarsophalangeal joints posteriorly.
--- NOTE | 2023-11-11 16:29 | P.PN ---
Subjective Progress Note Date: 11/11/23 Pt reports pain has improved in RLE. Gen: In NAD, non-toxic HEENT: normocephalic, atraumatic, hearing acuity is intant, mucous membranes moist CVS: perfusing all extremities well, no pitting edema, Respiratory: symmetric chest expansion, no accessory muscle use, GI: soft, NTTP, ND, : no suprapubic tenderness, no CVA tenderness MSK/Derm: Right lower extremity erythema, ulcer does not look infected Neuro: CN II-XII intact, no motor weakness, Psych: cooperative, euthymic mood, judgment and insight is intact Hospital course: Patient is a 68-year-old male with a PMH of type II DM complicated by peripheral neuropathy status post RLE osteomyelitis and right first toe amputation, hypertension, and hyperlipidemia who presents to the emergency room due to right lower extremity ulcer with erythema. Right lower extremity ultrasound in the emergency room revealed a vascular fluctuant mass in the medial calf with blood flow and compressible. A right foot x-ray revealed no acute findings consistent with osteomyelitis with some soft tissue swelling and other findings consistent with an ulcer. Laboratory evaluation was remarkable for leukocytosis of 24.0, platelet count 148, lactic acid 2.7, glucose 238, sodium 133, and BUN 21. Assessment: Right lower extremity diabetic ulcer with cellulitis Lactic acidosis Thrombocytopenia, suspect may be due to ongoing infection -Continue with broad-spectrum antibiotic coverage with Unasyn and vancomycin -Continue pain control with morphine 4 mg IV every 4 hours as needed -Continue with IV fluids with normal saline 130 cc/h -Infectious disease and vascular surgery consulted -Follow-up wound and blood cultures Chronic conditions: Type II DM, hypertension, hyperlipidemia -Resume home medications once reconciled -Insulin sliding scale and blood glucose monitoring DVT prophylaxis: Lovenox subcu The patient is admitted with an anticipated greater than than 2 midnight stay for evaluation of right lower extremity cellulitis CODE STATUS: Full Code Discussed with: Patient Anticipated discharge place: Home Objective - Vital Signs Vital signs: Vital Signs Temp 98.1 F 11/11/23 13:30 Pulse 77 11/11/23 13:30 Resp 18 11/11/23 13:30 BP 165/79 11/11/23 13:30 Pulse Ox 98 11/11/23 13:30 FiO2 Intake & Output 11/10/23 11/11/23 11/11/23 18:59 06:59 18:59 Intake Total 1220 Balance 1220 Weight 145.15 kg 145.15 kg Intake: Intake, IV Titration 740 Amount Ampicillin-Sulbactam 3 gm 100 In Sodium Chloride 0.9% 100 ml @ 200 mls/hr IVPB Q6H [facility] Rx#:[id number] Sodium Chloride 0.9% 1, 640 000 ml @ 130 mls/hr IV . [id number] [facility] Rx#:[id number] Oral 480 Other: Voiding Method Toilet Toilet - Labs CBC & Chem 7: 11/11/23 06:10 11/11/23 06:10 Labs: Abnormal Lab Results - Last 24 Hours (Table) 11/10/23 11/10/23 11/10/23 Range/Units 19:53 19:53 19:53 WBC 24.0 H (3.8-10.6) k/uL RBC (4.30-5.90) m/uL Hgb (13.0-17.5) gm/dL Hct (39.0-53.0) % Plt Count 148 L (150-450) k/uL Neutrophils # 22.0 H (1.3-7.7) k/uL Lymphocytes # 0.8 L (1.0-4.8) k/uL Sodium 133 L (137-145) mmol/L BUN 21 H (9-20) mg/dL Glucose 238 H (74-99) mg/dL POC Glucose (mg/dL) (70-110) mg/dL Plasma Lactic Acid Francisco 2.7 H* (0.7-2.0) mmol/L Calcium (8.4-10.2) mg/dL 11/11/23 11/11/23 11/11/23 Range/Units 05:54 06:10 06:10 WBC 14.0 H (3.8-10.6) k/uL RBC 3.70 L (4.30-5.90) m/uL Hgb 11.6 L (13.0-17.5) gm/dL Hct 34.6 L (39.0-53.0) % Plt Count 115 L (150-450) k/uL Neutrophils # (1.3-7.7) k/uL Lymphocytes # (1.0-4.8) k/uL Sodium 136 L (137-145) mmol/L BUN 24 H (9-20) mg/dL Glucose 182 H (74-99) mg/dL POC Glucose (mg/dL) 176 H (70-110) mg/dL Plasma Lactic Acid Francisco (0.7-2.0) mmol/L Calcium 7.9 L (8.4-10.2) mg/dL 11/11/23 Range/Units 11:47 WBC (3.8-10.6) k/uL RBC (4.30-5.90) m/uL Hgb (13.0-17.5) gm/dL Hct (39.0-53.0) % Plt Count (150-450) k/uL Neutrophils # (1.3-7.7) k/uL Lymphocytes # (1.0-4.8) k/uL Sodium (137-145) mmol/L BUN (9-20) mg/dL Glucose (74-99) mg/dL POC Glucose (mg/dL) 216 H (70-110) mg/dL Plasma Lactic Acid Francisco (0.7-2.0) mmol/L Calcium (8.4-10.2) mg/dL Microbiology - Last 24 Hours (Table) 11/11/23 06:40 Gram Stain - Preliminary Foot - Right
[2023-11-11 16:35] LABS: Glucose,Whole Blood 149 mg/dL (70-110)
[2023-11-11] MEDS: HYDROcodone/APAP 5-325MG 1 EACH TAB PO PRN (17:17)
[2023-11-11] MEDS: ACETAMINOPHEN TAB 325 MG TAB PO PRN (20:33)
--- NOTE | 2023-11-11 22:09 | P.CONS ---
History of Present Illness - Reason for Consult Consult date: 11/11/23 - History of Present Illness Patient is a 68-year-old male with a past medical history significant for diabetes mellitus hypertension hyperlipidemia previous history of right big toe diabetic foot infection in this patient who is status post right big toe amputation patient presenting to the hospital for evaluation of increasing swelling and redness to the right lower extremity along with a fever and rigors and chills patient symptom has been going on for 2 to 3 days before presentation the hospital and the main reason he came because of fever with rigors and chills patient did have diffuse swelling in his right lower extremity however the patient denies having any pain to the right leg patient apparently did have a blister on the plantar aspect of the right foot that has ruptured leading to some drainage of some clear fluid with the symptoms the patient was evaluated on presentation to the hospital he did have a temperature of 99 F patient was not tachycardic hypotensive or hypoxic no need for supplemental oxygen patient did have white count 24,000 with a left shift creatinine 0.92 liver enzymes are normal blood and local culture occlusion currently pending patient did have a lower extremity CT extensive soft tissue swelling to THE right lower extremity with large tortuous vessels medially no organized fluid collection no bony erosion to suggest osteomyelitis venous Doppler negative for DVT, left nodes in the right groin patient is currently on combination of vancomycin and Unasyn infectious disease was consulted for further management of antibiotic therapy Past Medical History Past Medical History: Diabetes Mellitus, Hyperlipidemia, Hypertension Additional Past Medical History / Comment(s): POOR CIRCULATION RT LEG. RT ANKLE WOUND History of Any Multi-Drug Resistant Organisms: None Reported Past Surgical History: Adenoidectomy, Orthopedic Surgery, Tonsillectomy Additional Past Surgical History / Comment(s): RECENT WOUND CENTER FOR RT ANKLE WOUND, NOW DISCHARGED, GANGLION CYST REMOVED LT WRIST, MASS REMOVED FROM RT INNER THIGH/GROIN. IVAN CATARACT LENS IMPLANTS. Past Anesthesia/Blood Transfusion Reactions: No Reported Reaction Past Psychological History: No Psychological Hx Reported Smoking Status: Never smoker Past Alcohol Use History: Occasional Past Drug Use History: None Reported - Past Family History Mother Family Medical History: Renal Disease Father Family Medical History: Diabetes Mellitus Additional Family Medical History / Comment(s): AGE 66 Medications and Allergies Home Medications Medication Instructions Recorded Confirmed Type Atorvastatin [Lipitor] 20 mg PO HS 02/25/23 11/11/23 History Escitalopram [Lexapro] 20 mg PO DAILY 02/25/23 11/11/23 History Insulin NPH Hum/Reg Insulin Hm 50 units SQ BID 02/25/23 11/11/23 History [NovoLIN 70-30 Flexpen] metFORMIN HCL 500 mg PO BID 02/25/23 11/11/23 History amLODIPine [Norvasc] 5 mg PO DAILY 11/11/23 11/11/23 History lisinopriL [Zestril] 30 mg PO DAILY 11/11/23 11/11/23 History Allergies Allergy/AdvReac Type Severity Reaction Status Date / Time No Known Allergies Allergy Verified 11/11/23 08:27 Physical Exam Vitals: Vital Signs Temp Pulse Pulse Resp BP BP Pulse Ox 11/11/23 07:09 98.5 F 85 17 144/74 98 11/11/23 02:00 97.9 F 67 12 128/77 99 11/11/23 00:14 80 18 127/82 95 11/11/23 00:00 82 16 131/65 95 11/10/23 22:08 94 18 136/66 95 11/10/23 19:57 92 16 181/76 95 11/10/23 18:50 99.0 F 101 H 20 186/73 97 Intake and Output 11/10/23 11/11/23 11/11/23 22:59 06:59 14:59 Intake Total 1220 Balance 1220 Intake: Intake, IV Titration 740 Amount Ampicillin-Sulbactam 3 gm 100 In Sodium Chloride 0.9% 100 ml @ 200 mls/hr IVPB Q6H [facility] Rx#:[id number] Sodium Chloride 0.9% 1, 640 000 ml @ 130 mls/hr IV . Q7H42M [facility] Rx#:[id number] Oral 480 Other: Voiding Method Toilet Weight 145.15 kg 145.15 kg Results CBC & Chem 7: 11/13/23 06:20 11/13/23 06:20 Labs: Abnormal Lab Results - Last 24 Hours (Table) 11/10/23 11/10/23 11/10/23 Range/Units 19:53 19:53 19:53 WBC 24.0 H (3.8-10.6) k/uL RBC (4.30-5.90) m/uL Hgb (13.0-17.5) gm/dL Hct (39.0-53.0) % Plt Count 148 L (150-450) k/uL Neutrophils # 22.0 H (1.3-7.7) k/uL Lymphocytes # 0.8 L (1.0-4.8) k/uL Sodium 133 L (137-145) mmol/L BUN 21 H (9-20) mg/dL Glucose 238 H (74-99) mg/dL POC Glucose (mg/dL) (70-110) mg/dL Plasma Lactic Acid Francisco 2.7 H* (0.7-2.0) mmol/L Calcium (8.4-10.2) mg/dL 11/11/23 11/11/23 11/11/23 Range/Units 05:54 06:10 06:10 WBC 14.0 H (3.8-10.6) k/uL RBC 3.70 L (4.30-5.90) m/uL Hgb 11.6 L (13.0-17.5) gm/dL Hct 34.6 L (39.0-53.0) % Plt Count 115 L (150-450) k/uL Neutrophils # (1.3-7.7) k/uL Lymphocytes # (1.0-4.8) k/uL Sodium 136 L (137-145) mmol/L BUN 24 H (9-20) mg/dL Glucose 182 H (74-99) mg/dL POC Glucose (mg/dL) 176 H (70-110) mg/dL Plasma Lactic Acid Francisco (0.7-2.0) mmol/L Calcium 7.9 L (8.4-10.2) mg/dL Assessment and Plan Plan: 1patient with acute right lower extremity cellulitis in this patient who did have diffuse swelling redness likely streptococcal disease patient did have a blister on the plantar aspect of the right foot likely the source of entry of this infection in this patient who is status post blood and local culture which are currently pending 2-patient to continue vancomycin and Unasyn while waiting for the culture to finalize Question Answered We will follow on clinical condition and cultures to further adjust medication if needed Thank you for this consultation we will follow the patient along with you Dictation was produced using [employer] software. please excuse any grammatical, word or spelling errors. Time with Patient: Greater than 30
[2023-11-11 22:40] LABS: Glucose,Whole Blood 185 mg/dL (70-110)
[2023-11-12 08:06] LABS: African American GFR (CKD) >90 (>60 ml/min/1.73 sqM); Non-African American GFR(CKD) 89 (>60 ml/min/1.73 sqM)
[2023-11-12 11:40] LABS: Glucose,Whole Blood 152 mg/dL (70-110)
--- NOTE | 2023-11-12 13:03 | P.CONS ---
History of Present Illness - Reason for Consult Consult date: 11/12/23 wound care - History of Present Illness This is a 68-year-old patient known to the wound care center with past medical history significant for diabetes, neuropathy, previous right great toe amputation. Patient was seen in the emergency room for open ulceration to the right plantar foot forefoot. X-ray did not show any bone destruction. A bedside debridement was performed by Dr. Austin. Ulceration measures approximately 2 x 2 x 0.6 cm fat layer exposed minimal granulation slough and nonviable tissue present. The periwound does show erythema. Review Of Systems: Constitutional: No fever, no chills, no night sweats. No weight change. No weakness, fatigue or lethargy. No daytime sleepiness. Integumentary:reports wounds, no lesions. No rash or pruritus. No unusual bruising. No change in hair or nails. Physical exam: General Appearance: Alert, cooperative, no distress, appears stated age. Skin: See HPI all other Skin color, texture, tugor normal, no rashes or lesions. Neurologic: Alert oriented x3 Assessment: 1. Nonhealing ulceration with fat layer exposure right forefoot 2. Diabetic foot ulceration 3. Diabetes with neuropathy Plan: 1. Apply honey gel, dry gauze roll gauze secure with paper tape. Nonweightbearing to right forefoot. Utilize walker and heel for ambulation. We will be happy to see the patient in the wound care center upon discharge. Patient is agreeable to the plan of care. Thank you for the consultation any questions please contact the wound care center DNP note has been reviewed and discussed with Dr. Mcpherson and the impression and plan of care has been directed as dictated. Past Medical History Past Medical History: Diabetes Mellitus, Hyperlipidemia, Hypertension Additional Past Medical History / Comment(s): POOR CIRCULATION RT LEG. RT ANKLE WOUND History of Any Multi-Drug Resistant Organisms: None Reported Past Surgical History: Adenoidectomy, Orthopedic Surgery, Tonsillectomy Additional Past Surgical History / Comment(s): RECENT WOUND CENTER FOR RT ANKLE WOUND, NOW DISCHARGED, GANGLION CYST REMOVED LT WRIST, MASS REMOVED FROM RT INNER THIGH/GROIN. IVAN CATARACT LENS IMPLANTS. Past Anesthesia/Blood Transfusion Reactions: No Reported Reaction Past Psychological History: No Psychological Hx Reported Smoking Status: Never smoker Past Alcohol Use History: Occasional Past Drug Use History: None Reported - Past Family History Mother Family Medical History: Renal Disease Father Family Medical History: Diabetes Mellitus Additional Family Medical History / Comment(s): AGE 66 Medications and Allergies Home Medications Medication Instructions Recorded Confirmed Type Atorvastatin [Lipitor] 20 mg PO HS 02/25/23 11/11/23 History Escitalopram [Lexapro] 20 mg PO DAILY 02/25/23 11/11/23 History Insulin NPH Hum/Reg Insulin Hm 50 units SQ BID 02/25/23 11/11/23 History [NovoLIN 70-30 Flexpen] metFORMIN HCL 500 mg PO BID 02/25/23 11/11/23 History amLODIPine [Norvasc] 5 mg PO DAILY 11/11/23 11/11/23 History lisinopriL [Zestril] 30 mg PO DAILY 11/11/23 11/11/23 History Allergies Allergy/AdvReac Type Severity Reaction Status Date / Time No Known Allergies Allergy Verified 11/11/23 08:27 Physical Exam Vitals: Vital Signs Temp Pulse Resp BP Pulse Ox 11/12/23 08:00 70 16 11/12/23 07:53 98.6 F 70 16 152/80 95 11/11/23 13:30 98.1 F 77 18 165/79 98 Intake and Output 11/11/23 11/12/23 11/12/23 22:59 06:59 14:59 Intake Total 700 480 10 Balance 700 480 10 Intake: IV 10 Invasive Line 2 10 Intake, IV Titration 700 Amount Ampicillin-Sulbactam 3 gm 200 In Sodium Chloride 0.9% 100 ml @ 200 mls/hr IVPB Q6H [facility] Rx#:[id number] Vancomycin 2,000 mg In 500 Sodium Chloride 0.9% 500 ml 500 ml @ 167 mls/hr IVPB Q12H [facility] Rx#: [id number] Oral 480 Other: Voiding Method Toilet # Voids 2 Results CBC & Chem 7: 11/11/23 06:10 11/12/23 07:29 Labs: Abnormal Lab Results - Last 24 Hours (Table) 11/11/23 11/11/23 11/12/23 Range/Units 16:33 22:30 11:38 POC Glucose (mg/dL) 149 H 185 H 152 H (70-110) mg/dL Microbiology - Last 24 Hours (Table) 11/11/23 06:40 Gram Stain - Preliminary Foot - Right Wound Culture - Preliminary Presumptive MRSA 11/10/23 19:48 Blood Culture - Preliminary Blood 11/10/23 19:33 Blood Culture - Preliminary Blood Assessment and Plan (1) Non-pressure chronic ulcer of other part of right foot with fat layer exposed Current Visit: Yes Status: Acute Code(s): L97.512 - NON-PRS CHRONIC ULCER OTH PRT RIGHT FOOT W FAT LAYER EXPOSED SNOMED Code(s): 06974139464648662 (2) Type 2 diabetes mellitus with foot ulcer Current Visit: Yes Status: Acute Code(s): E11.621 - TYPE 2 DIABETES MELLITUS WITH FOOT ULCER; L97.509 - NON-PRESSURE CHRONIC ULCER OTH PRT UNSP FOOT W UNSP SEVERITY SNOMED Code(s): 119357238
--- NOTE | 2023-11-12 13:19 | P.PN ---
Subjective Progress Note Date: 11/12/23 Principal diagnosis: Right foot wound, cellulitis Patient seen and examined today as a follow-up. Yesterday Dr. Austin did a bedside debridement of right foot wound. Today he states he is doing well. Denies any fevers or chills. No pain in his foot. Wound culture preliminary is presumptive MRSA. He remains on IV antibiotics Objective - Vital Signs Vital signs: Vital Signs Temp 98.1 F 11/11/23 13:30 Pulse 77 11/11/23 13:30 Resp 18 11/11/23 13:30 BP 165/79 11/11/23 13:30 Pulse Ox 98 11/11/23 13:30 FiO2 Intake & Output 11/11/23 11/12/23 11/12/23 18:59 06:59 18:59 Intake Total 700 480 Balance 700 480 Intake: Intake, IV Titration 700 Amount Ampicillin-Sulbactam 3 gm 200 In Sodium Chloride 0.9% 100 ml @ 200 mls/hr IVPB Q6H [facility] Rx#:[id number] Vancomycin 2,000 mg In 500 Sodium Chloride 0.9% 500 ml 500 ml @ 167 mls/hr IVPB Q12H [facility] Rx#: [id number] Oral 480 Other: Voiding Method Toilet # Voids 2 - Exam General appearance: The patient is alert, oriented, appears in no acute distress. HET: Head is normocephalic and atraumatic. Pupils are equal and reactive. Neck: Supple. Abdomen: Soft, nontender, nondistended. Extremities: Right lower extremity swelling, improved. Right foot with dressing clean dry and intact. Good capillary refill. Neurological: No focal deficits. - Labs CBC & Chem 7: 11/11/23 06:10 11/12/23 07:29 Labs: Abnormal Lab Results - Last 24 Hours (Table) 11/11/23 11/11/23 11/11/23 Range/Units 11:47 16:33 22:30 POC Glucose (mg/dL) 216 H 149 H 185 H (70-110) mg/dL Microbiology - Last 24 Hours (Table) 11/10/23 19:48 Blood Culture - Preliminary Blood 11/10/23 19:33 Blood Culture - Preliminary Blood 11/11/23 06:40 Gram Stain - Preliminary Foot - Right Assessment and Plan Assessment: 1. Leukocytosis 2. Right foot diabetic ulcer status post bedside debridement 3. Right lower extremity cellulitis 4. Right groin prominent lymph node 5. Diabetes with diabetic neuropathy 6. Previous right great toe amputation Plan: 1. Continue symptomatic and supportive care 2. Venous duplex of right lower extremity ordered and reviewed 3. CT of right lower extremity ordered and reviewed 4. Diet as tolerated 5. Continue antibiotics per recommendation from infectious disease 6. Bedside debridement completed 7. Consult to wound center for local wound care. No further vascular surgical intervention indicated. Recommend continuing with outpatient wound care. Thank you for this consultation, we will sign off at this time. The impression and plan of care has been dictated as directed. Dr. Austin I performed a history and examination of this patient, discussed the same with the dictator. I agree with the dictator's note ,documented as a scribe. Any additional findings or plans will be noted.
--- NOTE | 2023-11-12 15:33 | P.PN ---
Subjective Progress Note Date: 11/12/23 Pt reports pain has improved in RLE. Gen: In NAD, non-toxic HEENT: normocephalic, atraumatic, hearing acuity is intant, mucous membranes moist CVS: perfusing all extremities well, no pitting edema, Respiratory: symmetric chest expansion, no accessory muscle use, GI: soft, NTTP, ND, : no suprapubic tenderness, no CVA tenderness MSK/Derm: Right lower extremity erythema, ulcer does not look infected Neuro: CN II-XII intact, no motor weakness, Psych: cooperative, euthymic mood, judgment and insight is intact Hospital course: Patient is a 68-year-old male with a PMH of type II DM complicated by peripheral neuropathy status post RLE osteomyelitis and right first toe amputation, hypertension, and hyperlipidemia who presents to the emergency room due to right lower extremity ulcer with erythema. Right lower extremity ultrasound in the emergency room revealed a vascular fluctuant mass in the medial calf with blood flow and compressible. A right foot x-ray revealed no acute findings consistent with osteomyelitis with some soft tissue swelling and other findings consistent with an ulcer. Laboratory evaluation was remarkable for leukocytosis of 24.0, platelet count 148, lactic acid 2.7, glucose 238, sodium 133, and BUN 21. Assessment: Right lower extremity diabetic ulcer with cellulitis Lactic acidosis Thrombocytopenia, suspect may be due to ongoing infection -Continue with broad-spectrum antibiotic coverage with Unasyn and vancomycin -Continue pain control with morphine 4 mg IV every 4 hours as needed -Continue with IV fluids with normal saline 130 cc/h -Infectious disease and vascular surgery consulted, appreciate recs - ID recs: continue vanco/unasyn, until Cx finalize -Follow-up wound and blood cultures -wound cx growing MRSA Chronic conditions: Type II DM, hypertension, hyperlipidemia -Resume home medications once reconciled -Insulin sliding scale and blood glucose monitoring DVT prophylaxis: Lovenox subcu The patient is admitted with an anticipated greater than than 2 midnight stay for evaluation of right lower extremity cellulitis CODE STATUS: Full Code Discussed with: Patient Anticipated discharge place: Home Objective - Vital Signs Vital signs: Vital Signs Temp 98.4 F 11/12/23 13:57 Pulse 77 11/12/23 13:57 Resp 17 11/12/23 13:57 BP 152/80 11/12/23 07:53 Pulse Ox 97 11/12/23 13:57 FiO2 Intake & Output 11/11/23 11/12/23 11/12/23 18:59 06:59 18:59 Intake Total 700 480 10 Balance 700 480 10 Intake: IV 10 Invasive Line 2 10 Intake, IV Titration 700 Amount Ampicillin-Sulbactam 3 gm 200 In Sodium Chloride 0.9% 100 ml @ 200 mls/hr IVPB Q6H [facility] Rx#:[id number] Vancomycin 2,000 mg In 500 Sodium Chloride 0.9% 500 ml 500 ml @ 167 mls/hr IVPB Q12H [facility] Rx#: [id number] Oral 480 Other: Voiding Method Toilet Toilet # Voids 2 - Labs CBC & Chem 7: 11/11/23 06:10 11/12/23 07:29 Labs: Abnormal Lab Results - Last 24 Hours (Table) 11/11/23 11/11/23 11/12/23 Range/Units 16:33 22:30 11:38 POC Glucose (mg/dL) 149 H 185 H 152 H (70-110) mg/dL Microbiology - Last 24 Hours (Table) 11/11/23 06:40 Gram Stain - Preliminary Foot - Right Wound Culture - Preliminary Presumptive MRSA 11/10/23 19:48 Blood Culture - Preliminary Blood 11/10/23 19:33 Blood Culture - Preliminary Blood
[2023-11-12 16:53] LABS: Glucose,Whole Blood 257 mg/dL (70-110)
[2023-11-12 20:51] LABS: Glucose,Whole Blood 215 mg/dL (70-110)
[2023-11-13 06:25] LABS: Glucose,Whole Blood 185 mg/dL (70-110)
[2023-11-13 07:46] LABS: Basophils % (A) 0 %; Eosinophils # (A) 0.2 k/uL (0-0.7); Eosinophils % (A) 3 %; HCT 33.8 % (39.0-53.0); HGB 10.9 gm/dL (13.0-17.5); Lymphocytes # (A) 1.7 k/uL (1.0-4.8); Lymphocytes % (A) 19 %; MCH 30.1 pg (25.0-35.0); MCHC 32.1 g/dL (31.0-37.0); MCV 93.8 fL (80.0-100.0); Mean Platelet Volume 9.4; Monocytes # (A) 0.7 k/uL (0-1.0); Monocytes % (A) 8 %; Neutrophils % (A) 68 %; Platelet Count 131 k/uL (150-450); RBC 3.61 m/uL (4.30-5.90); RDW 13.4 % (11.5-15.5); WBC 8.9 k/uL (3.8-10.6)
[2023-11-13 07:55] LABS: African American GFR (CKD) >90 (>60 ml/min/1.73 sqM); Anion Gap 4 mmol/L; Blood Urea Nitrogen 13 mg/dL (9-20); Calcium 8.2 mg/dL (8.4-10.2); Carbon Dioxide 29 mmol/L (22-30); Chloride 107 mmol/L (98-107); Glucose 183 mg/dL (74-99); Non-African American GFR(CKD) >90 (>60 ml/min/1.73 sqM); Sodium 140 mmol/L (137-145)
--- NOTE | 2023-11-13 08:16 | P.PN ---
Subjective Progress Note Date: 11/12/23 Principal diagnosis: Reason for follow-up is right lower extremity cellulitis Patient is a 68-year-old male with a past medical history significant for diabetes mellitus hypertension hyperlipidemia previous history of right big toe diabetic foot infection in this patient who is status post right big toe amputation patient presenting to the hospital for evaluation of increasing swelling and redness to the right lower extremity, patient be diagnosed with a cellulitis. On today's evaluation that is 11/12/2023, patient has been afebrile, patient is breathing comfortably and is currently on room air, patient denies having any significant cough no chest pain shortness of breath, patient denies nausea vomiting or diarrhea and no abdominal pain, swelling redness in the right lower extremity slightly decreased in intensity. Patient did have a creatinine 0.88 CBC was done today cultures are currently pending Objective - Vital Signs Vital signs: Vital Signs Temp 98.6 F 11/12/23 07:53 Pulse 70 11/12/23 08:00 Resp 16 11/12/23 08:00 BP 152/80 11/12/23 07:53 Pulse Ox 95 11/12/23 07:53 FiO2 Intake & Output 11/11/23 11/12/23 11/12/23 18:59 06:59 18:59 Intake Total 700 480 10 Balance 700 480 10 Intake: IV 10 Invasive Line 2 10 Intake, IV Titration 700 Amount Ampicillin-Sulbactam 3 gm 200 In Sodium Chloride 0.9% 100 ml @ 200 mls/hr IVPB Q6H [facility] Rx#:[id number] Vancomycin 2,000 mg In 500 Sodium Chloride 0.9% 500 ml 500 ml @ 167 mls/hr IVPB Q12H [facility] Rx#: [id number] Oral 480 Other: Voiding Method Toilet Toilet # Voids 2 - Exam GENERAL DESCRIPTION: An elderly male lying in bed in no distress RESPIRATORY SYSTEM: Unlabored breathing , decreased breath sounds at bases HEART: S1 S2 regular rate and rhythm , ABDOMEN: Soft , no tenderness EXTREMITIES: Right leg swelling redness slightly decreased - Labs CBC & Chem 7: 11/13/23 06:20 11/13/23 06:20 Labs: Abnormal Lab Results - Last 24 Hours (Table) 11/11/23 11/11/23 11/12/23 Range/Units 16:33 22:30 11:38 POC Glucose (mg/dL) 149 H 185 H 152 H (70-110) mg/dL Microbiology - Last 24 Hours (Table) 11/11/23 06:40 Gram Stain - Preliminary Foot - Right Wound Culture - Preliminary Presumptive MRSA 11/10/23 19:48 Blood Culture - Preliminary Blood 11/10/23 19:33 Blood Culture - Preliminary Blood Assessment and Plan (1) Cellulitis of right leg Current Visit: Yes Status: Acute Code(s): L03.115 - CELLULITIS OF RIGHT LOWER LIMB SNOMED Code(s): 60162852540483704 (2) Type 2 diabetes mellitus with foot ulcer Current Visit: Yes Status: Acute Code(s): E11.621 - TYPE 2 DIABETES MELLITUS WITH FOOT ULCER; L97.509 - NON-PRESSURE CHRONIC ULCER OTH PRT UNSP FOOT W UNSP SEVERITY SNOMED Code(s): 023626959 Plan: 1patient with acute right lower extremity cellulitis in this patient who did have diffuse swelling redness likely streptococcal disease patient did have a blister on the plantar aspect of the right foot likely the source of entry of this infection in this patient who is status post blood and local culture which are currently pending 2-patient right leg redness minimal decrease we will continue the patient on Unasyn and vancomycin while waiting for the culture to finalize Dictation was produced using [employer] dictation software. please excuse any grammatical, word or spelling errors. Time with Patient: Less than 30
[2023-11-13] MEDS: VANCOMYCIN TROUGH DUE 1 EACH MISC MISCELLANE ONE (08:39)
[2023-11-13 11:57] LABS: Glucose,Whole Blood 255 mg/dL (70-110)
--- NOTE | 2023-11-13 13:53 | P.PN ---
Subjective Progress Note Date: 11/13/23 Pt reports pain has improved in RLE. Gen: In NAD, non-toxic HEENT: normocephalic, atraumatic, hearing acuity is intant, mucous membranes moist CVS: perfusing all extremities well, no pitting edema, Respiratory: symmetric chest expansion, no accessory muscle use, GI: soft, NTTP, ND, : no suprapubic tenderness, no CVA tenderness MSK/Derm: Right lower extremity erythema, ulcer does not look infected Neuro: CN II-XII intact, no motor weakness, Psych: cooperative, euthymic mood, judgment and insight is intact Hospital course: Patient is a 68-year-old male with a PMH of type II DM complicated by peripheral neuropathy status post RLE osteomyelitis and right first toe amputation, hypertension, and hyperlipidemia who presents to the emergency room due to right lower extremity ulcer with erythema. Right lower extremity ultrasound in the emergency room revealed a vascular fluctuant mass in the medial calf with blood flow and compressible. A right foot x-ray revealed no acute findings consistent with osteomyelitis with some soft tissue swelling and other findings consistent with an ulcer. Laboratory evaluation was remarkable for leukocytosis of 24.0, platelet count 148, lactic acid 2.7, glucose 238, sodium 133, and BUN 21. Assessment: Right lower extremity diabetic ulcer with cellulitis Lactic acidosis Thrombocytopenia, suspect may be due to ongoing infection -Continue with broad-spectrum antibiotic coverage with Unasyn and vancomycin -Continue pain control with morphine 4 mg IV every 4 hours as needed -Continue with IV fluids with normal saline 130 cc/h -Infectious disease and vascular surgery consulted, appreciate recs - ID recs: continue vanco/unasyn, until Cx finalize -Follow-up wound and blood cultures -wound cx growing MRSA Chronic conditions: Type II DM, hypertension, hyperlipidemia -Resume home medications once reconciled -Insulin sliding scale and blood glucose monitoring DVT prophylaxis: Lovenox subcu The patient is admitted with an anticipated greater than than 2 midnight stay for evaluation of right lower extremity cellulitis CODE STATUS: Full Code Discussed with: Patient Anticipated discharge place: Home Objective - Vital Signs Vital signs: Vital Signs Temp 98.1 F 11/13/23 07:43 Pulse 65 11/13/23 07:43 Resp 19 11/13/23 07:43 BP 185/79 11/13/23 07:43 Pulse Ox 98 11/13/23 07:43 FiO2 Intake & Output 11/12/23 11/13/23 11/13/23 18:59 06:59 18:59 Intake Total 1210 Balance 1210 Intake: IV 10 Invasive Line 2 10 Oral 1200 Other: Voiding Method Toilet # Voids 4 - Labs CBC & Chem 7: 11/13/23 06:20 11/13/23 06:20 Labs: Abnormal Lab Results - Last 24 Hours (Table) 11/12/23 11/12/23 11/13/23 Range/Units 16:51 20:09 06:01 RBC (4.30-5.90) m/uL Hgb (13.0-17.5) gm/dL Hct (39.0-53.0) % Plt Count (150-450) k/uL Glucose (74-99) mg/dL POC Glucose (mg/dL) 257 H 215 H 185 H (70-110) mg/dL Calcium (8.4-10.2) mg/dL 11/13/23 11/13/23 11/13/23 Range/Units 06:20 06:20 11:54 RBC 3.61 L (4.30-5.90) m/uL Hgb 10.9 L (13.0-17.5) gm/dL Hct 33.8 L (39.0-53.0) % Plt Count 131 L (150-450) k/uL Glucose 183 H (74-99) mg/dL POC Glucose (mg/dL) 255 H (70-110) mg/dL Calcium 8.2 L (8.4-10.2) mg/dL Microbiology - Last 24 Hours (Table) 11/11/23 06:40 Gram Stain - Final Foot - Right Wound Culture - Final Methicillin resist S. aureus 11/10/23 19:48 Blood Culture - Preliminary Blood 11/10/23 19:33 Blood Culture - Preliminary Blood
[2023-11-13 16:58] LABS: Glucose,Whole Blood 261 mg/dL (70-110)
[2023-11-13 20:42] LABS: Glucose,Whole Blood 183 mg/dL (70-110)
[2023-11-13] MEDS: VANCOMYCIN 2,250 MG in SODIUM CHLORIDE 0.9% 500 ML 500 ML IVPB SCH (20:50)
[2023-11-14 06:29] LABS: Glucose,Whole Blood 192 mg/dL (70-110)
[2023-11-14 11:43] LABS: Glucose,Whole Blood 220 mg/dL (70-110)
--- NOTE | 2023-11-14 15:13 | P.DS ---
Providers Date of admission: 11/10/23 21:04 Expected date of discharge: 11/14/23 Attending physician: Concha Ward MD Consults: 11/10/23 21:14 Consult Physician Urgent Consulting Provider: Ariadna Hood Consult Reason/Comments: cellulitis Do you want consulting provider notified?: Yes, Notify in am 11/10/23 21:17 Consult Physician Urgent Consulting Provider: Zelda Austin Consult Reason/Comments: diabetic foot infection, previous amputation Do you want consulting provider notified?: Yes, Notify in am Primary care physician: [facility] Course: Assessment: Right lower extremity diabetic ulcer with cellulitis Lactic acidosis Thrombocytopenia, suspect may be due to ongoing infection Chronic conditions: Type II DM, hypertension, hyperlipidemia Gen: In NAD, non-toxic HEENT: normocephalic, atraumatic, hearing acuity is intant, mucous membranes moist CVS: perfusing all extremities well, no pitting edema, Respiratory: symmetric chest expansion, no accessory muscle use, GI: soft, NTTP, ND, : no suprapubic tenderness, no CVA tenderness MSK/Derm: Right lower extremity erythema, ulcer does not look infected Neuro: CN II-XII intact, no motor weakness, Psych: cooperative, euthymic mood, judgment and insight is intact Hospital course: Patient is a 68-year-old male with a PMH of type II DM complicated by peripheral neuropathy status post RLE osteomyelitis and right first toe amputation, hypertension, and hyperlipidemia who presents to the emergency room due to right lower extremity ulcer with erythema. Right lower extremity ultrasound in the emergency room revealed a vascular fluctuant mass in the medial calf with blood flow and compressible. A right foot x-ray revealed no acute findings consistent with osteomyelitis with some soft tissue swelling and other findings consistent with an ulcer. Laboratory evaluation was remarkable for leukocytosis of 24.0, platelet count 148, lactic acid 2.7, glucose 238, sodium 133, and BUN 21. Pt treated with vanco, unasyn. He was seen and evaluated by ID, vascular, wound care. Wound cx grew MRSA, sensitive to bactrim. Pt was discharged w 10 days of bactrim DS per ID recs. Vascular sx ordered CT LE and vascular US - negative for DVT, did show soft tissue swelling, tortuous vessels, subluxation of the 2nd and 3rd digits at the MTP joint. He will f/u with PCP, ID. Wound care f/u in 1 week arranged as well. I spent 40 min coordinating this discharge Patient Condition at Discharge: Good Plan - Discharge Summary Discharge Rx Participant: No New Discharge Prescriptions: New Sulfamethox-Tmp 800-160Mg [Bactrim DS 800-160 mg] 1 tab PO Q12HR #20 tab Acetaminophen Tab [Tylenol] 650 mg PO Q6HR PRN tab PRN Reason: Mild Pain Or Fever > 100.5 Continue Insulin NPH Hum/Reg Insulin Hm [NovoLIN 70-30 Flexpen] 50 units SQ BID amLODIPine [Norvasc] 5 mg PO DAILY metFORMIN HCL 500 mg PO BID Escitalopram [Lexapro] 20 mg PO DAILY Atorvastatin [Lipitor] 20 mg PO HS lisinopriL [Zestril] 30 mg PO DAILY Discharge Medication List Atorvastatin [Lipitor] 20 mg PO HS 02/25/23 [History] Escitalopram [Lexapro] 20 mg PO DAILY 02/25/23 [History] Insulin NPH Hum/Reg Insulin Hm [NovoLIN 70-30 Flexpen] 50 units SQ BID 02/25/23 [History] metFORMIN HCL 500 mg PO BID 02/25/23 [History] amLODIPine [Norvasc] 5 mg PO DAILY 11/11/23 [History] lisinopriL [Zestril] 30 mg PO DAILY 11/11/23 [History] Acetaminophen Tab [Tylenol] 650 mg PO Q6HR PRN tab 11/14/23 [Rx] Sulfamethox-Tmp 800-160Mg [Bactrim DS 800-160 mg] 1 tab PO Q12HR #20 tab 11/14/23 [Rx] Follow up Appointment(s)/Referral(s): [facility] [NON-STAFF] - 1 Week Gonzalez Whitehead DO [Primary Care Provider] - 1-2 days Discharge Disposition: HOME SELF-CARE
[2023-11-14 15:48] VITALS: BP 166/83; PULSE 64; RESP 17; TEMP 98.1
--- NOTE | 2023-11-14 16:48 | P.PN ---
Subjective Progress Note Date: 11/13/23 Principal diagnosis: Reason for follow-up is right lower extremity cellulitis Patient is a 68-year-old male with a past medical history significant for diabetes mellitus hypertension hyperlipidemia previous history of right big toe diabetic foot infection in this patient who is status post right big toe amputation patient presenting to the hospital for evaluation of increasing swelling and redness to the right lower extremity, patient be diagnosed with a cellulitis. On today's evaluation that is 11/13/2023,the patient denies any fever or any chills, patient is breathing comfortably on room air, the patient denies chest pain shortness of breath and no significant cough, patient denies abdominal pain, no nausea vomiting or diarrhea. Patient right leg swelling redness improved denies pain or any drainage. Patient white count normalized to 8.9, creatinine 0.80 Objective - Vital Signs Vital signs: Vital Signs Temp 98.1 F 11/13/23 07:43 Pulse 65 11/13/23 07:43 Resp 19 11/13/23 07:43 BP 185/79 11/13/23 07:43 Pulse Ox 98 11/13/23 07:43 FiO2 Intake & Output 11/12/23 11/13/23 11/13/23 18:59 06:59 18:59 Intake Total 1210 Balance 1210 Intake: IV 10 Invasive Line 2 10 Oral 1200 Other: Voiding Method Toilet # Voids 4 - Exam GENERAL DESCRIPTION: An elderly male lying in bed in no distress RESPIRATORY SYSTEM: Unlabored breathing , decreased breath sounds at bases HEART: S1 S2 regular rate and rhythm , ABDOMEN: Soft , no tenderness EXTREMITIES: Right leg swelling redness slightly decreased - Labs CBC & Chem 7: 11/13/23 06:20 11/13/23 06:20 Labs: Abnormal Lab Results - Last 24 Hours (Table) 11/12/23 11/12/23 11/13/23 Range/Units 16:51 20:09 06:01 RBC (4.30-5.90) m/uL Hgb (13.0-17.5) gm/dL Hct (39.0-53.0) % Plt Count (150-450) k/uL Glucose (74-99) mg/dL POC Glucose (mg/dL) 257 H 215 H 185 H (70-110) mg/dL Calcium (8.4-10.2) mg/dL 11/13/23 11/13/23 11/13/23 Range/Units 06:20 06:20 11:54 RBC 3.61 L (4.30-5.90) m/uL Hgb 10.9 L (13.0-17.5) gm/dL Hct 33.8 L (39.0-53.0) % Plt Count 131 L (150-450) k/uL Glucose 183 H (74-99) mg/dL POC Glucose (mg/dL) 255 H (70-110) mg/dL Calcium 8.2 L (8.4-10.2) mg/dL Microbiology - Last 24 Hours (Table) 11/11/23 06:40 Gram Stain - Final Foot - Right Wound Culture - Final Methicillin resist S. aureus 11/10/23 19:48 Blood Culture - Preliminary Blood 11/10/23 19:33 Blood Culture - Preliminary Blood Assessment and Plan (1) Cellulitis of right leg Status: Acute Code(s): L03.115 - CELLULITIS OF RIGHT LOWER LIMB SNOMED Code(s): 60001688550317132 (2) Type 2 diabetes mellitus with foot ulcer Status: Acute Code(s): E11.621 - TYPE 2 DIABETES MELLITUS WITH FOOT ULCER; L97.509 - NON-PRESSURE CHRONIC ULCER OTH PRT UNSP FOOT W UNSP SEVERITY SNOMED Code(s): 801321449 Plan: 1patient with acute right lower extremity cellulitis in this patient who did hood ve diffuse swelling redness likely streptococcal disease patient did have a blister on the plantar aspect of the right foot likely the source of entry of this infection in this patient who is status post blood and local culture which are currently pending 2-patient right leg redness has decreased in intensity cultures currently growing present MRSA we will continue vancomycin however discontinue Unasyn with the discharge antibiotic on the basis of final sensitivity Dictation was produced using [employer] dictation software. please excuse any grammatical, word or spelling errors. Time with Patient: Less than 30
--- NOTE | 2023-11-14 16:49 | P.PN ---
Subjective Progress Note Date: 11/14/23 Principal diagnosis: Reason for follow-up is right lower extremity cellulitis Patient is a 68-year-old male with a past medical history significant for diabetes mellitus hypertension hyperlipidemia previous history of right big toe diabetic foot infection in this patient who is status post right big toe amputation patient presenting to the hospital for evaluation of increasing swelling and redness to the right lower extremity, patient be diagnosed with a cellulitis. On today's evaluation that is 11/14/2023, patient continues to be afebrile, patient is breathing comfortably and is currently on room air, patient denies having any significant cough no chest pain shortness of breath, patient denies nausea vomiting or diarrhea and no abdominal pain, pain swelling and redness on her leg has decreased in intensity No lab draw today, patient culture been finalized with MRSA with intermediate sensitivity to tetracycline sensitive to Bactrim Objective - Vital Signs Vital signs: Vital Signs Temp 98.2 F 11/14/23 07:58 Pulse 62 11/14/23 07:58 Resp 18 11/14/23 07:58 BP 166/80 11/14/23 07:58 Pulse Ox 98 11/14/23 07:58 FiO2 Intake & Output 11/13/23 11/14/23 11/14/23 18:59 06:59 18:59 Other: # Voids 3 2 3 # Bowel Movements 1 2 - Exam GENERAL DESCRIPTION: An elderly male lying in bed in no distress RESPIRATORY SYSTEM: Unlabored breathing , decreased breath sounds at bases HEART: S1 S2 regular rate and rhythm , ABDOMEN: Soft , no tenderness EXTREMITIES: Right leg swelling redness slightly decreased - Labs CBC & Chem 7: 11/13/23 06:20 11/13/23 06:20 Labs: Abnormal Lab Results - Last 24 Hours (Table) 11/13/23 11/13/23 11/14/23 Range/Units 16:56 20:38 06:27 POC Glucose (mg/dL) 261 H 183 H 192 H (70-110) mg/dL 11/14/23 Range/Units 11:41 POC Glucose (mg/dL) 220 H (70-110) mg/dL Microbiology - Last 24 Hours (Table) 11/10/23 19:48 Blood Culture - Preliminary Blood 11/10/23 19:33 Blood Culture - Preliminary Blood Assessment and Plan (1) Cellulitis of right leg Status: Acute Code(s): L03.115 - CELLULITIS OF RIGHT LOWER LIMB SNOMED Code(s): 92667545182987949 (2) Type 2 diabetes mellitus with foot ulcer Status: Acute Code(s): E11.621 - TYPE 2 DIABETES MELLITUS WITH FOOT ULCER; L 97.509 - NON-PRESSURE CHRONIC ULCER OTH PRT UNSP FOOT W UNSP SEVERITY SNOMED Code(s): 873597574 Plan: 1patient with acute right lower extremity cellulitis in this patient who did have diffuse swelling redness likely streptococcal disease patient did have a blister on the plantar aspect of the right foot likely the source of entry of this infection in this patient who is status post blood and local culture which are currently pending 2-patient did have improvement of the right lower extremity cellulitis culture finalized with MRSA, patient be advised Bactrim DS 1 twice a day for 10 days on discharge and close outpatient follow-up discussed with admitting team working on discharge Dictation was produced using [employer] dictation software. please excuse any grammatical, word or spelling errors. Time with Patient: Less than 30
[2023-11-15] MEDS ORDERED: VANCOMYCIN TROUGH DUE 1 EACH MISC MISCELLANE ONE (08:00)
--- NOTE | 2023-11-17 09:06 | CDI ---
Documentation Clarification Form Date: 11/17/2023 From: Indigo Linares Admit Date: 11/10/2023 09:04:00 PM Patient Name: James Mcclendon Visit Number: [id number] Discharge Date: 11/14/2023 04:14:00 PM ATTENTION: The Clinical Documentation Specialists (CDI) and [facility] Coding Staff appreciate your assistance in clarifying documentation. Please respond to the clarification below the line at the bottom and electronically sign. The CDI & [facility] Coding staff will review the response and follow-up if needed. Please note: Queries are made part of the Legal Health Record. If you have any questions, please contact the author of this message via ITS. Dr. Zelda Austin, A bedside debridement is documented in your consult on 11/12/23. Additional clarification regarding the procedure is requested. History/Risk Factors: [id number]/peripheral neuropathy/foot ulcer, thrombocytopenia, hypertension Clinical Indicators: Non-pressurechronic ulcer of other part of right footwith fat layer exposed. Ulcerationmeasures approximately 2 x 2 x 0.6 cm fat layer exposed minimal granulation slough and nonviable tissue present. The periwound does showerythema. Treatment: Bedside debridement performed. Please clarify the type of procedure performed: [x ] Excisional debridement (the removal of necrotic, devitalized tissue or slough by means of cutting away of tissue) [ ] Non-excisional debridement (the removal of necrotic, devitalized tissue or slough by means of flushing, brushing, or washing. (Irrigation) [ ] Other; please specify [ ] Unable to determine Five elements required for accurate and compliant documentation of a debridement: Technique used (e.g., excisional, excised, cutting, brushing, jet lavage etc.) Instrument(s) used (e.g., scalpel, curette, etc.) Nature of the tissue removed (e.g., necrotic, devitalized tissues, non-viable tissue, etc.) Appearance and size of the wound (e.g., down to fresh bleeding tissue, 7cm x 10cm, etc.) Depth of the debridement* (e.g., skin, subcutaneous tissue, fascia, muscle, bone, etc.) MTDD
== END 2023-11-14 16:14 | disposition home or self-care (01) | DRG 638 ==
LOC: EC 18:47 → 4SSUR 21:04
PROVIDERS: ADMIT Internal Medicine; ATTEND Internal Medicine
PROC: 0HBMXZZ Excision of Right Foot Skin, External Approach (ICD-10-PCS; principal; 2023-11-12)
DX: E11.628 Type 2 diabetes mellitus with other skin complications (principal); E87.20 Acidosis, unspecified; L03.115 Cellulitis of right lower limb; Z68.41 Body mass index [BMI] 40.0-44.9, adult; D69.6 Thrombocytopenia, unspecified; E11.42 Type 2 diabetes mellitus with diabetic polyneuropathy; E11.621 Type 2 diabetes mellitus with foot ulcer; L97.512 Non-pressure chronic ulcer of other part of right foot with fat layer exposed; B95.62 Methicillin resistant Staphylococcus aureus infection as the cause of diseases classified elsewhere; I10 Essential (primary) hypertension; E66.01 Morbid (severe) obesity due to excess calories; Z89.411 Acquired absence of right great toe; Z79.4 Long term (current) use of insulin; E78.5 Hyperlipidemia, unspecified; Z79.84 Long term (current) use of oral hypoglycemic drugs; Z79.899 Other long term (current) drug therapy
CPT/HCPCS: 36415; 80048; 80053; 80202; 82565; 83605; 83735; 85025; 85027; 87040; 87070; 87077; 87186; 87205; 96361; 96365; 96366; 96367; 99285

== ENCOUNTER 2024-09-01 11:53 | Emergency (ER) | payer MEDICARE ==
--- NOTE | 2024-09-01 12:30 | ED ---
Skin/Abscess/FB HPI - General Chief complaint: Skin/Abscess/Foreign Body Stated complaint: sore on rt foot Time Seen by Provider: 09/01/24 12:04 Source: patient, RN notes reviewed Mode of arrival: ambulatory Limitations: no limitations - History of Present Illness MD complaint: lesion Onset/Timin -: days(s) Location: R foot Context: other (History of diabetes) Associated symptoms: denies other symptoms Treatments Prior to Arrival: bandages - Related Data Home Medications Medication Instructions Recorded Confirmed Atorvastatin [Lipitor] 20 mg PO HS 02/25/23 11/11/23 Escitalopram [Lexapro] 20 mg PO DAILY 02/25/23 11/11/23 Insulin NPH Hum/Reg Insulin Hm 50 units SQ BID 02/25/23 11/11/23 [NovoLIN 70-30 Flexpen] metFORMIN HCL 500 mg PO BID 02/25/23 11/11/23 amLODIPine [Norvasc] 5 mg PO DAILY 11/11/23 11/11/23 lisinopriL [Zestril] 30 mg PO DAILY 11/11/23 11/11/23 Insulin NPH Hum/Reg Insulin Hm 40 units SQ HS 09/01/24 09/01/24 [NovoLIN 70-30 Flexpen] Semaglutide [Ozempic] 0.25 mg SQ TH 09/01/24 09/01/24 Previous Rx's Medication Instructions Recorded Cephalexin [Keflex] 500 mg PO Q6HR 1 Days #56 cap 09/01/24 Allergies Allergy/AdvReac Type Severity Reaction Status Date / Time No Known Allergies Allergy Verified 09/01/24 13:32 Review of Systems ROS Statement: Those systems with pertinent positive or pertinent negative responses have been documented in the HPI. ROS Other: All systems not noted in ROS Statement are negative. Past Medical History Past Medical History: Diabetes Mellitus, Hyperlipidemia, Hypertension Additional Past Medical History / Comment(s): POOR CIRCULATION RT LEG. RT ANKLE WOUND History of Any Multi-Drug Resistant Organisms: None Reported Past Surgical History: Adenoidectomy, Orthopedic Surgery, Tonsillectomy Additional Past Surgical History / Comment(s): RECENT WOUND CENTER FOR RT ANKLE WOUND, NOW DISCHARGED, GANGLION CYST REMOVED LT WRIST, MASS REMOVED FROM RT INNER THIGH/GROIN. IVAN CATARACT LENS IMPLANTS. Past Anesthesia/Blood Transfusion Reactions: No Reported Reaction Past Psychological History: No Psychological Hx Reported Smoking Status: Never smoker Past Alcohol Use History: Occasional Past Drug Use History: None Reported - Past Family History Mother Family Medical History: Renal Disease Father Family Medical History: Diabetes Mellitus Additional Family Medical History / Comment(s): AGE 66 General Exam Limitations: no limitations General appearance: alert, in no apparent distress Head exam: Present: atraumatic, normocephalic, normal inspection Eye exam: Present: normal appearance, PERRL, EOMI. Absent: scleral icterus, conjunctival injection, periorbital swelling ENT exam: Present: normal exam, mucous membranes moist Neck exam: Present: normal inspection. Absent: tenderness, meningismus, lymphadenopathy Respiratory exam: Present: normal lung sounds bilaterally. Absent: respiratory distress, wheezes, rales, rhonchi, stridor Cardiovascular Exam: Present: regular rate, normal rhythm, normal heart sounds. Absent: systolic murmur, diastolic murmur, rubs, gallop, clicks GI/Abdominal exam: Present: soft, normal bowel sounds. Absent: distended, tenderness, guarding, rebound, rigid Extremities exam: Present: full ROM, normal capillary refill, other (Macerated 5 cm callus on distal aspect of right sole without tenderness or discharge. Macerated skin extends to third digit with abrasion noted on distal lateral aspect of third digit. Surgical amputation of right great toe noted. Patient notes neuropathy of foot). Absent: tenderness, pedal edema, joint swelling, calf tenderness Back exam: Present: normal inspection Neurological exam: Present: alert, oriented X3, CN II-XII intact Psychiatric exam: Present: normal affect, normal mood Skin exam: Present: warm, dry, intact, normal color. Absent: rash Course Vital Signs 09/01/24 12:02 Temperature 97.6 F Pulse Rate 67 Respiratory 20 Rate Blood Pressure 186/77 O2 Sat by Pulse 99 Oximetry Medical Decision Making - Medical Decision Making Was pt. sent in by a medical professional or institution (, PA, TABLET COATER, urgent care, hospital, or jail...) When possible be specific @ -[No] Did you speak to anyone other than the patient for history (EMS, parent, family, police, friend...)? What history was obtained from this source @ -[No] Did you review nursing and triage notes (agree or disagree)? Why? @ -[I reviewed and agree with nursing and triage notes] Were old charts reviewed (outside hosp., previous admission, EMS record, old EKG, old radiological studies, urgent care reports/EKG's, jail records)? Report findings @ -[No old charts were reviewed] Differential Diagnosis (chest pain, altered mental status, abdominal pain women, abdominal pain men, vaginal bleeding, weakness, fever, dyspnea, syncope, headache, dizziness, GI bleed, back pain, seizure, CVA, palpatations, mental health, musculoskeletal)? @ -Differential Musculoskeletal Muscular strain, contusion, ligament sprain, fracture, arthritis, septic arthritis, bursitis, cellulitis, muscle spasm, nerve compression, DVT, arterial occlusion, herpes zoster, electrolyte abnormality, tumor.... This is not meant to be in all inclusive list EKG interpreted by me (3pts min.). @ -[As above] X-rays interpreted by me (1pt min.). @ -[None done] CT interpreted by me (1pt min.). @ -[None done] U/S interpreted by me (1pt. min.). @ -[None done] What testing was considered but not performed or refused? (CT, X-rays, U/S, labs)? Why? @ -[None] What meds were considered but not given or refused? Why? @ -[None] Did you discuss the management of the patient with other professionals (professionals i.e. , PA, TABLET COATER, lab, RT, psych nurse, licensed clinical social worker, interactive producer, teacher, loan servicing officer, bilingual patient support caseworker)? Give summary @ -[No] Was smoking cessation discussed for >3mins.? @ -[No] Was critical care preformed (if so, how long)? @ -[No] Were there social determinants of health that impacted care today? How? (Homelessness, low income, unemployed, alcoholism, drug addiction, transportation, low edu. Level, literacy, decrease access to med. care, residential, rehab)? @ -[No] Was there de-escalation of care discussed even if they declined (Discuss DNR or withdrawal of care, Hospice)? DNR status @ -[No] What co-morbidities impacted this encounter? (DM, HTN, Smoking, COPD, CAD, Cancer, CVA, ARF, Chemo, Hep., AIDS, mental health diagnosis, sleep apnea, morbid obesity)? @ -DM Was patient admitted / discharged? Hospital course, mention meds given and route, prescriptions, significant lab abnormalities, going to OR and other pertinent info. @ -[hospital course] Undiagnosed new problem with uncertain prognosis? @ -[No] Drug Therapy requiring intensive monitoring for toxicity (Heparin, Nitro, Insulin, Cardizem)? @ -[No] Were any procedures done? @ -[No] Diagnosis/symptom? @ -[default] Acute, or Chronic, or Acute on Chronic? @ -Acute Uncomplicated (without systemic symptoms) or Complicated (systemic symptoms)? @ -Uncomplicated Side effects of treatment? @ -[No] Exacerbation, Progression, or Severe Exacerbation? @ -[No] Poses a threat to life or bodily function? How? (Chest pain, [place], [place], pneumonia, PE, COPD, DKA, ARF, appy, cholecystitis, CVA, Diverticulitis, Homicidal, Suicidal, threat to staff... and all critical care pts) @ -[No] Disposition Clinical Impression: Type 2 diabetes mellitus with foot ulcer Disposition: HOME SELF-CARE Condition: Good Instructions (If sedation given, give patient instructions): Foot Care for People with Diabetes (ED), Diabetic Foot Ulcers (ED) Prescriptions: Cephalexin [Keflex] 500 mg PO Q6HR 1 Days #56 cap Is patient prescribed a controlled substance at d/c from ED?: No Referrals: Gonzalez Whitehead DO [Primary Care Provider] - 1-2 days Time of Disposition: 13:45
--- NOTE | 2024-09-01 13:00 | XR ---
EXAMINATION TYPE: XR foot complete RT DATE OF EXAM: 09/01/2024 12:55 PM COMPARISON: 11/10/2023 CLINICAL INDICATION: Male, 68 years old with history of Diabetic wound on distal sole and third digit ; [facility], pain TECHNIQUE: XR foot complete RT examined in the AP, oblique, and lateral projections. FINDINGS: there is posterior subluxation of the second third digits at the measures findings a joint. Diffuse s oft tissue swelling. Interpretation the first metatarsal. No evidence for osseous erosion. Scattered calcifications in the subcutaneous tissues of the distal leg. No evidence of fracture. Mild multilevel degeneration changes with joint space narrowing osteophyte formation. Calcaneal plantar spur and Achilles enthesophyte. IMPRESSION: 1. Soft tissue swelling without evidence of osseous erosion on radiography. 2. Dorsal subluxation/dislocation of the second and third digits. 3. Post surgical changes of the first metatarsal. [facility], , 09/01/2024 12:58 PM
[2024-09-01 14:03] VITALS: BP 175/79; PULSE 51; RESP 18; TEMP 98.2
== END 2024-09-01 14:02 | disposition home or self-care (01) ==
LOC: EC 11:53
DX: E11.621 Type 2 diabetes mellitus with foot ulcer (principal); Z79.4 Long term (current) use of insulin
CPT/HCPCS: 87070; 87077; 87186; 87205; 99283